=== PATIENT | male | born 1985 | race Caucasian/White ===

== ENCOUNTER 2022-03-16 15:38 | Emergency (ER) | payer BC, SELFPAY ==
[2022-03-16 15:45] VITALS: BP 113/76; PULSE 88; RESP 22; TEMP 37; O2SAT 95; BMI 25.1
--- NOTE | 2022-03-16 16:44 | CRLHL7_ITS ---
For Patients: As a result of the Century Cures Act, medical imaging exams and procedure reports are released immediately into your electronic medical record. You may view this report before your referring provider. If you have questions, please contact your health care provider. INDICATION: chest wall pain; family hx of pneumothorax TECHNIQUE: Chest 2 views. COMPARISON: 05/27/20 FINDINGS: Cardiovascular and mediastinum: Heart size and vasculature are normal in caliber and appearance. Mediastinum is within normal limits. Lungs and pleural spaces: Lungs are clear. No sign of infiltrate or mass. No sign of pleural effusion. No pneumothorax. Bones and soft tissues: No significant findings. IMPRESSION: Unremarkable chest. Dictated by: French Elliott MD @ 03/16/2022 17:21:41 (Electronically Signed)
--- NOTE | 2022-03-16 16:46 | ED.CHESTPAIN ---
HPI - Chest Pain General Chief Complaint: Chest Pain Stated Complaint: Lung Pain Right side Chest and Back Time Seen by Provider: 03/16/22 16:27 History of Present Illness HPI narrative: This 36-year-old male comes in reporting pain in his right anterior chest and right axillary region. This began a couple days ago. He states that it is worse significantly when performing certain maneuvers or movements, when taking a deep breath, and when pressing in these areas. He does not report any recent injury event or significant strenuous activity. He does state that his father had pneumothoraces in the past. He does not report any shortness of breath. He states that it is difficult to find a good position to sleep in at night because of the discomfort. Related Data Previous Rx's Medication Instructions Recorded ketorolac 10 mg tablet 10 mg PO Q8H 5 days #15 tabs 03/16/22 Allergies Allergy/AdvReac Type Severity Reaction Status Date / Time cefaclor [From [facility]] Allergy Verified 03/16/22 15:59 ragweed pollen Allergy Verified 03/16/22 15:59 Review of Systems Status of ROS Reports: 10 or more systems reviewed and unremarkable except as noted in History and below Narrative Constitutional: No fevers, no weight gain or loss. Eyes: No discharge. No vision changes. HENT: No congestion, no sore throat, no ear pain. Cardiovascular: No palpitations. Respiratory: No shortness of breath, no wheezes, no cough. Gastrointestinal: No abdominal pain, no vomiting, no diarrhea. Genitourinary: No dysuria, no hematuria. Musculoskeletal: Normal range of motion. Chest wall pain as described above. Skin: No rashes, no pruritis. Neurological: No dizziness, weakness, sensory change, speech change. Endo/Heme/Allergies: No bruising or bleeding. No polydipsia. Pysch: no suicidality, no anxiety, no insomnia. All other systems reviewed and are negative. Exam Narrative Exam Narrative: Constitutional: Well-developed, well-nourished, no acute distress. HEENT: Normocephalic, atraumatic. Neck: Normal range of motion. Nontender. Supple. Heart: Regular. No murmurs. Normal rate. Intact distal pulses. Lungs: Clear to auscultation. No wheezes, rhonchi, or rales. Chest pain in the right anterior chest and axillary region is distinctly reproducible when taking a deep breath or palpating in these areas. Abdomen: Normal bowel sounds. Nontender. No rebound tenderness. Genitalia: Deferred. Back: No midline tenderness. Normal range of motion. Extremities: Normal range of motion. No injury. Skin: Intact. No rash. Warm. No erythema or pallor. Neurologic: No altered sensation. No weakness. Alert and oriented. Psychiatric: No suicidality. No anxiety or depression. No insomnia. Nursing notes and vitals signs are reviewed. Const Vital Signs, click to edit/add: Vital Signs - 24 hr 03/16/22 15:45 Temperature 98.6 F Pulse Rate [Apical] 88 Respiratory Rate 22 Blood Pressure [Left Upper Arm] 113/76 Pulse Oximetry 95 Oxygen Delivery Method Room Air Course Vital Signs Vital signs: Initial Vital Signs Temperature 98.6 F 03/16/22 15:45 Temperature Source Temporal Artery Scan 03/16/22 15:45 Pulse Rate 88 03/16/22 15:45 Pulse Rhythm 03/16/22 15:45 Respiratory Rate 22 03/16/22 15:45 Blood Pressure 113/76 03/16/22 15:45 Blood Pressure Mean 88 03/16/22 15:45 Pulse Oximetry 95 03/16/22 15:45 Oxygen Delivery Method 03/16/22 15:45 Vital Signs Temperature 98.6 F 03/16/22 15:45 Pulse Rate 88 03/16/22 15:45 Respiratory Rate 22 03/16/22 15:45 Blood Pressure 113/76 03/16/22 15:45 Pulse Oximetry 95 03/16/22 15:45 Oxygen Delivery Method 03/16/22 15:45 Temperature 98.6 F 03/16/22 15:45 Pulse Rate 88 03/16/22 15:45 Respiratory Rate 22 03/16/22 15:45 Blood Pressure 113/76 03/16/22 15:45 Pulse Oximetry 95 03/16/22 15:45 Oxygen Delivery Method 03/16/22 15:45 MDM - Chest Pain MDM Narrative Medical decision making narrative: This patient comes in with reproducible pain in the right axilla and right upper anterior chest typical of chest wall pain. An x-ray was performed which by my review shows no sign of pneumothorax or other acute pulmonary disease. He received a rib belt and a prescription for Toradol. Imaging Data Chest x-ray: My impression: No sign of pneumothorax or acute pulmonary disease. Discharge Plan Discharge Clinical Impression: Acute chest wall pain Condition: Stable Instructions: Chest Wall Pain (ED) Additional Instructions: Take medication as needed and prescribed. Follow up with MD or return if worsening. Prescriptions: New ketorolac 10 mg tablet 10 mg PO Q8H 5 Days Qty: 15 0RF Follow Up/Referrals: Provider,Not a Local [Primary Care Provider] - Stand Alone Forms: [employer] Info Instructions
== END 2022-03-16 18:01 | disposition home or self-care (01) ==
PROVIDERS: Emergency Provider Emergency Medicine Emergency Medical Services
DX: R07.89 Other chest pain (principal)
CPT/HCPCS: 71046; 99283; 99284

== ENCOUNTER 2022-04-29 14:43 | Emergency (ER) | payer BC, SELFPAY ==
[2022-04-29 14:49] VITALS: BP 115/78; PULSE 98; RESP 18; TEMP 36.2; O2SAT 98; BMI 25.1
--- NOTE | 2022-04-29 16:28 | ED_ITS ---
HPI - General Adult General Chief complaint: Head Injury/Pain Stated complaint: Fainted, fell/scraped face Time Seen by Provider: 04/29/22 14:58 Source: patient Mode of arrival: ambulatory Limitations: no limitations History of Present Illness HPI narrative: 36-year-old male coming in today after he fell this morning. He states that he was crouching down expressing his dogs bladder when he stood up felt very lig htheaded and ended up passing out falling forward onto some cactus in his yard. He is not sure how long he was out therefore he woke up to the barking of his dog. He was a little confused momentarily upon waking. He has felt tired with a mild headache all day. He denies any recent illness, cough, chest pain or shortness of breath. No changes in his vision or hearing. He denies any nausea or vomiting. He came in this late afternoon at the urging of his mother. Patient has a history significant for anxiety, depression, narcolepsy. He denies any new medications. He denies any neurologic deficits. Related Data Previous Rx's Medication Instructions Recorded ketorolac 10 mg tablet 10 mg PO Q8H 5 days #15 tabs 03/16/22 Allergies Allergy/AdvReac Type Severity Reaction Status Date / Time cefaclor [From [facility]] Allergy Verified 03/16/22 15:59 ragweed pollen Allergy Verified 03/16/22 15:59 Review of Systems Status of ROS: Reports: 10 or more systems reviewed and unremarkable except as noted in History and below PFSH PFS Social History Smoking Status: Former smoker What tobacco products do you use: cigarettes Smoking quit date/years: >15 years ago Do you use any of these nicotine containing products: None Second hand tobacco smoke exposure: No How often do you have a drink containing alcohol: never How often do you have six or more drinks on one occasion: Never AUDIT-C Alcohol total score: 0 Non-prescribed substance use: denies use Exam Narrative: Exam Narrative: Well-nourished well-developed patient in no acute distress. Alert and oriented x3. GCS is 15. Breathing and speaking without any difficulty. Answers questions appropriately. Mood and affect are appropriate. Thoughts are goal or iented and rational. No tangential or magical thinking noted. Patient speaks in full sentences without needing to catch his breath. HEENT: Normocephalic. Pupils are equally round reactive to light. Extraocular muscles are intact. Conjunctivae are moist without any icterus noted. Moist mucous membranes. Posterior pharynx is normal. Neck is soft without any lymphadenopathy or thyromegaly. No masses are appreciated. Patient has superficial abrasions of the center of his forehead and down the center of the nose. There is no septal hematoma noted inside the nose. There is no crepitus or deformity noted on outside of the nose. There is no crepitus or tenderness around the orbits. There is no crepitus or tenderness across the forehead. He has no active bleeding, the abrasions have all already scabbed over. He has no tenderness to palpation of the cervical spine. He has full range of motion with flexion, extension, side way bending and rotation. Cardiovascular: Heart is regular rate and rhythm S1 and S2 are present without any murmurs. Lungs: Clear to auscultation bilaterally no wheezes rhonchi or rales are appreciated. Patient takes deep breaths without any discomfort. Const: Vital Signs, click to edit/add: Vital Signs - 24 hr 04/29/22 14:49 Temperature 97.1 F L Pulse Rate [Right Pulse Oximeter] 98 Respiratory Rate 18 Blood Pressure [Ri ght Upper Arm] 115/78 Pulse Oximetry 98 Oxygen Delivery Me thod Room Air Course Vital Signs Vital signs: Initial Vital Signs Temperature 97.1 F L 04/29/22 14:49 Temperature Source Temporal Artery Scan 04/29/22 14:49 Pulse Rate 98 04/29/22 14:49 Respiratory Rate 18 04/29/22 14:49 Blood Pressure 115/78 04/29/22 14:49 Blood Pressure Mean 90 04/29/22 14:49 Blood Pressure Position Sitting 04/29/22 14:49 Pulse Oximetry 98 04/29/22 14:49 Oxygen Delivery Method 04/29/22 14:49 Vital Signs Temperature 97.1 F L 04/29/22 14:49 Pulse Rate 98 04/29/22 14:49 Respiratory Rate 18 04/29/22 14:49 Blood Pressure 115/78 04/29/22 14:49 Pulse Oximetry 98 04/29/22 14:49 Oxygen Delivery Method 04/29/22 14:49 Temperature 97.1 F L 04/29/22 14:49 Pulse Rate 98 04/29/22 14:49 Respiratory Rate 18 04/29/22 14:49 Blood Pressure 115/78 04/29/22 14:49 Pulse Oximetry 98 04/29/22 14:49 Oxygen Delivery Method 04/29/22 14:49 Medical Decision Making MDM Narrative Medical decision making narrative: 36-year-old male with what sounds like a vasovagal episode with syncope today, closed head injury and abrasions to the face, mild concussion. Given that this occurred around 8 hours ago, I do not see the need for intracranial imaging. We discussed concussion care including no rigorous physical activity for 24 hours and brain rest. We discussed reasons to follow up with his primary care provider. Patient was agreeable with everything we discussed and had no other questions. Discharge Plan Discharge Clinical Impression: Vasovagal syncope, Mild concussion, Closed head injury, Abrasion of face Additional Instructions: You need brain rest-no vigorous physical activity for 24 hours. Then slow return to normal activity: this includes decreasing anything that causes stimulation including screen time. Okay to take Tylenol or ibuprofen as needed for aches and pains. Expect to have increased soreness tomorrow-okay to use heat to sore areas but do not apply heat directly to skin. If your headache is not better in the next 24-48 hours, follow-up with your prim [facility] care provider. Prescriptions: No Action ketorolac 10 mg tablet 10 mg PO Q8H 5 Days Qty: 15 0RF Follow Up/Referrals: Provider,Not a Local [Primary Care Provider] - Stand Alone Forms: [employer] Info Instructions
--- OUTSIDE RECORDS SUMMARY | 2022-04-29 16:37 | XMS_ITS | Encounter Summary ---
:1985 [facility] Address [address] [address] Care Team Providers Name Role Phone Marino Rubio PA-C Primary Care Provider Reason for Visit Reason Comments Video Visit CONSULT Consult/Transfer Care (Routine) - New Request Specialty Diagnoses / Procedures Referred By Contact Refer red To Contact Diagnoses Positive DINESH (antinuclear antibody) Ajit Menezes DO [address] [place], [place] [address] Referral ID Status Reason Start Date Expiration Date Visits V isits Requested Authorized [id number] New Request 04/09/2021 07/09/2022 1 1 Encounter Details Date Type Department Care Team Description 07/08/2021 Telemedicine [facility] [address]zon Pos itive DINESH (antinuclear antibody) (Primary Dx); Rheumatology Arthralgia, unspecified joint [address] [facility] [place] [address] [phone] (Wo rk) Social History Tobacco Use Types Packs/Day Years Used Date Smoking Tobacco: Never Smokeless Tobacco: Never Alcohol Use Standard Drinks/Week Comments Yes 0 (1 standard drink = 0.6 oz pure alcoho l) once a week (3-8) Alcohol Habits Answer Date Recorded How often do you have a drink containing alcohol? Not asked How many drinks containing alcohol do you have on a Not aske d typical day when you are drinking? How often do you have six or more drinks on one Not asked occasion? Comment: once a week (3-8) 01/17/2020 Sex Assigned at Date Recorded Not on file documented as of this encounter Patient Instructions Patient InstructionsFreeman Garzon MD - 07/08/2021 1:15 PM CST DINESH = Antinuclear antibody This is an antibody in the blood which tends to bind proteins within the nucleus of cells. It is often referred to as the ???Lupus Test?? because 99% of people with lupus do have a positive test. However, perhaps only 1/10 to 1/50 of people randomly screened and found to have a positive DINESH actually have lupus. In other words, all people with lupus have a positive DINESH but not all people with a positive DINESH have lupus. It is therefore a sensitive test, but not a specific one. In practice, it often has greater utility if it is negative, since a negative test almost always (99% of the time) rules out Lupus as the causeof the underlying symptoms. The DINESH may be positive in with lots of conditions besides Lupus. Other autoimmune diseases like rheumatoid arthritis, Sjogren???s Syndrome, scleroderma can cause a positive. Autoimmune disease which don???t fall into the Rheumatology category like thyroid disease and liver disease can cause a positive DINESH. Other reasons for a positive DINESH include some kinds of infections (even viral infections like colds) and certain medications (minocycline, procainamide, hydralazine, some antiseizure drugs). Up to 1 in 20 normal people can have a positive DINESH (usually low positive) which has no consequence at all. The stronger positive the DINESH, the more likely it is to mean something significant. DINESH is reported in a titer, with higher numbers being a stronger positive: Negative 1:40 (weak positive) 1:80 1:160 1:320 1:640 1:1280 1:2560 (strong positive) Often value above 1:320 are significant. Thankfully, there are some additional blood tests which can help determine if a positive DINESH is a ???true positive?? or ???false positive?? , so these may be ordered. The most important thing, however, is what symptoms the patient has. A positive DINESH is just one piece of information used to diagnose disease like lupus. Diagnosing diseases like lupus requires the presence of certain signs and symptoms. ETIC ADVISOR documented in this encounter Progress Notes Freeman Garzon MD - 07/08/2021 12:00 AM CST NAME: JACKIE MARROQUIN CSN: [id number] CLINIC NOTE DATE OF SERVICE: 07/08/2021 : 1985 I saw Mr. Marroquin on a video conference on July 08. He was at home as was I. I told him I appreciated his willingness to do this online with the pandemic. He is 35 years old. 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 Additional health issues: 1. Anxiety. 2. Depression. 3. Asthma. 4. Seasonal allergies. 5. HIV. 6. Migraines. 7. Arthralgias. 8. Positive antinuclear antibody. I am asked to see him with respect to a positive antinuclear antibody. He was having pain in both arms. He thought he probably had carpal tunnel. He was having some paresthesias in the hands but the entire hand was involved. It went up the arm to the neck. He was having pain in the arm and shoulders, but the numbness was in the fingers. Again, he emphasized it was both sides and it was all the fingers including the thumb. He tried some aspirin for it, though did not splint it. Was evaluated by [facility] who sent him for an EMG that was negative. He is scheduled for cervical MRI and an MRI of his head, but these have notbeen scheduled yet. He was having some pain in the elbows, right more than left, but again the entire arm was involved. When I asked him whether this was bone, muscle, nerve or joint he says the hand sensation felt like nerve pain and that certainly sounds appropriate with the paresthesias he was having. He said the arm and shoulder was more pain. It was not the individual joints all over. He does get Raynaud phenomenon, but did not have that with the numbness. Raynaud is just involving the hands. PAST MEDICAL HISTORY: See above. He had labs done. His CBC was normal. A1c was 5.3. VDRL was negative. Tuberculosis QuantiFERON was negative. His HIV was positive. Liver function tests negative. His CRP was less than 0.5. TSH was 1.61. His ABBI, however, was greater than 1:640 nucleolar pattern. As mentioned, he does have Raynaud. He says he has anxiety and when he goes to swallow something, has to think about actually swallowing them. He thinks this is more his anxiety. He has never had an endoscopy done. He does not get much in the way of reflux. He has had some nasal sores which are unusual for him. There is no photosensitivity. There is no shortness of breath. He has never had pleurisy, pericarditis, hair loss, skin rashes, etc. He has a brother and sister in good health. Mom is 57 and is in good health. Has some disk disease in her back. His dad is 58. He has had prostate cancer and hypertension. He thinks there is rheumatoid arthritis on the paternal side of his family but does not k now the details of that. REVIEW OF SYSTEMS: Detailed complete review of systems otherwise negative. I should note he had an VARSHA done also that was negative and his rheumatoid factor was negative. He was under the impression he was thought to have rheumatoid arthritis. MEDICATIONS: He has albuterol, Flovent, Advair, Flonase, and Atrovent nasal inhalers. He is on Wellbutrin 300 mg, lysine 500 mg, Naprosyn occasionally, Singulair 10 mg a day, probiotic, Inderal 60 mg aday, Imitrex if needed, Patanol eye drops, a vitamin a day, and Biktarvy. PHYSICAL EXAMINATION: Obviously, an exam could not be done. His hair pattern looks normal. There is no butterfly rash. I do not see any swollen joints in his hands, but a limited exam is all we could do on a virtual consult. We had a lengthy discussion about lupus. We talked about the positive ABBI. The nucleolar plan is commonly associated with a CREST variety of scleroderma. He does have some swallowing difficulty. We may want to pursue a barium swallow although he thinks this is more anxiety. When he is swallowing thenhe has to think the process through. He has never had an endoscopy. He does not get reflux. He has had no sclerodactyly. He has had no red spots on his face or hands with telangiectasias. I am going togo ahead and do a CCP rheumatoid factor on him as he was under the impression he was being sent for rheumatoid arthritis. His VARSHA was completely negative. We will do complements studies with DNA and anticardiolipin antibody and lupus anticoagulant for the Raynaud. His TSH was done and was negative. I will get back to him the results of those. I do not think we are dealing with an underlying connective tissue disease at least at this point in time. He does not have features to suggest CREST. He is having an MRI of his head done as well as his neck, but again his symptoms do not fit nicely with an isolated cervical radiculopathy. I appreciate the opportunity to see him in consultation. If his labs are abnormal, I will need to see him in the office. If normal, followup will be as needed. I will forward him information on the ABBI as well. Contact time 60 minutes reviewing chart, history and physical today. MD LUIS CARLOS LYLE/BRIAN /[id number] cc: MARINO RUBIO PA-C [address] [place] [address] AJIT MENEZES, DO [address] [place] [address] ETIC ADVISOR documented in this encounter Plan of Treatment Not on filedocumented as of this encounter Results IGG-Whll-PI-DNA by Julio Assay (07/27/2021 11:39 AM GEODETIC ADVISOR) P athologist Signature Anti-dsDNA Ab <8.0 <8.0 IU/mL 08/03/2021 [facility] (Julio Assay) 11:06 PM GEODETIC ADVISOR INTERFACED Specimen Anatomical Collection Method / Collection Time Recei meg Time (Source) Location / Volume Laterality Blood Venipuncture / 07/27/2021 11:39 2 Unknown AM GEODETIC ADVISOR 11:39 AM GEODETIC ADVISOR Narrative [facility] INTERFACED - 08/03/2021 11:06 PM GEODETIC ADVISOR Test(s) [id number] Ab by Julio(RDL) was developed and its performance charac teristics determined by [facility]. It has not been cleared or a pproved by the Food and Drug Administration. Performed at: ??01 - [employer] [address] [facility], A ??[id number] Cd Reactor Operator Head: Ej Diaz MD, Phone: ? ?[phone] Freeman Garzon MD LAB_1 Performing Organization Address City/[facility]/ZIP Code Phon e Number [facility] INTERFACED [address] [address] [place] [address] C4 - C4 Complement (07/27/2021 11:39 AM GEODETIC ADVISOR) [facility] Signature C4 Complement 27.5 15.0 - 07/27/2021 [facility] 53.0 mg/dL 3:19 PM GEODETIC ADVISOR CENTRAL LAB Specimen Anatomical Collection Method / Collection Time Recei meg Time (Source) Location / Volume Laterality Blood Venipuncture / 07/27/2021 11:39 2 Unknown AM GEODETIC ADVISOR 11:39 AM GEODETIC ADVISOR Freeman Garzon MD LAB_1 Performing Organization Address [facility] Phon e Number [facility] CEN[facility]AL LAB [address] [address] C3 - C3 Complement (07/27/2021 11:39 AM GEODETIC ADVISOR) [facility] Signature C3 Complement 115 82 - 185 07/27/2021 [facility] mg/dL 3:19 PM GEODETIC ADVISOR CENTRAL LAB Specimen Anatomical Collection Method / Collection Time Recei meg Time (Source) Location / Volume Laterality Blood Venipuncture / 07/27/2021 11:39 2 Unknown AM GEODETIC ADVISOR 11:39 AM GEODETIC ADVISOR Freeman Garzon MD LAB_1 Performing Organization Address [facility] Phon e Number [facility] [address] [address] CCPIG - Cyclic Citrullinated Peptide AB (07/27/2021 11:39 AM GEODETIC ADVISOR) [facility] Signature Anti-CCP Antibody 2 <7 U/mL 07/28/2021 [facility] 11:35 AM CENTRAL LAB GEODETIC ADVISOR Anti-CCP Antibody Negative Negative 07/28/2021 [facility] Interpretation 11:35 AM CENTRAL LAB GEODETIC ADVISOR Specimen Anatomical Collection Method / Collection Time Recei meg Time (Source) Location / Volume Laterality Blood Venipuncture / 07/27/2021 11:39 2 Unknown AM GEODETIC ADVISOR 11:39 AM GEODETIC ADVISOR Freeman Garzon MD LAB_1 Performing Organization Address [facility] Phon e Number [facility] [address] [address] Cardiolipin Antibodies, IgG and IgM (07/27/2021 11:39 AM GEODETIC ADVISOR) Patholo gist Method Time Signature Anticardiolipin 1.1 <=9.9 07/28/2021 [facility] S IgG Antibody GPL-u/ml 11:09 AM CENTRAL LAB GEODETIC ADVISOR Cardiolipin IgG Negative Negative 07/28/2021 [facility] Interp 11:09 AM CENTRAL LAB GEODETIC ADVISOR Anticardiolipin <0.8 <=9.9 07/28/2021 [facility] IgM Antibody MPL-U/ml 11:09 AM CENTRAL LAB GEODETIC ADVISOR Cardiolipin IgM Negative Negative 07/28/2021 [facility] Interp 11:09 AM CENTRAL LAB GEODETIC ADVISOR Specimen Anatomical Collection Method / Collection Time Recei meg Time (Source) Location / Volume Laterality Blood Venipuncture / 07/27/2021 11:39 2 Unknown AM GEODETIC ADVISOR 11:39 AM GEODETIC ADVISOR Narrative [facility] - 07/28/2021 11:09 AM GEODETIC ADVISOR If there is a strong clinical suspicion for antiphospholipid antibody syndrome (APS), consider testing for Lupus anticoagulant and Beta-2 glycoprotein 1 antibodies (IgG and IgM) if these tests have not been pe rformed. Freeman Garzon MD LAB_1 Performing Organization Address City/[facility] Phon e Number [facility] [address] [address] LACP - Lupus Anticoagulant (07/27/2021 11:39 AM GEODETIC ADVISOR) Component Value Ref Range Test Analysis Performed Pathologis t Method Time At Signature Protime 12.8 11.8 - 14.6 07/28/2021 [facility] 10:06 AM HOSPITAL GEODETIC ADVISOR INR 1.0 0.9 - 1.1 07/28/2021 [facility] 10:06 AM HOSPITAL GEODETIC ADVISOR APTT 29.9 22.5 - 36.5 07/28/2021 [facility] 10:06 AM HOSPITAL GEODETIC ADVISOR Thrombin 16.5 13.8 - 18.7 07/28/2021 [facility] Time Seconds 10:06 AM HOSPITAL GEODETIC ADVISOR DRVV Screen 1.14 0.78 - 1.22 07/28/2021 [facility] Ratio 10:06 AM HOSPITAL GEODETIC ADVISOR PTTLA ratio 0.95 0.83 - 1.17 07/28/2021 [facility] 10:06 AM HOSPITAL GEODETIC ADVISOR Lupus No evidence of No evidence of 07/28/2021 [facility] Anticoag Lupus Lupus-like 10:06 AM HOSPITAL Intrp Anticoagulant anticoagulant GEODETIC ADVISOR Specimen Anatomical Collection Method / Collection Time Recei meg Time (Source) Location / Volume Laterality Blood Venipuncture / 07/27/2021 11:39 2 Unknown AM GEODETIC ADVISOR 11:39 AM GEODETIC ADVISOR Narrative [facility] - 07/28/2021 10:[address] Comment: LA was not detected by PTTLA or DRVVS te sting. Suggest repeat testing as clinically indicated. Freeman Garzon MD LAB_1 Performing Organization Address City/State/ZIP Code Phon e Number [address] [address] documented in this encounter Visit Diagnoses Diagnosis Positive DINESH (antinuclear antibody) - Pr imary Other and unspecified nonspecific immuno logical findings Arthralgia, unspecified joint documented in this encounter Care Teams Maintenance Assistant Relationship Specialty Start Date End Date Marino Rubio PA-C PCP - General Physician Stucco Worker 07/18/19 [address] [place] [address] documented as of this encounter
--- OUTSIDE RECORDS SUMMARY | 2022-04-29 16:37 | XMS_ITS | Encounter Summary ---
:1985 Author Organization [employer] Address [address] [address] Care Team Providers Name Role Phone Marino Rubio PA-C Primary Care Provider Reason for Visit Reason Comments Nurse Visit Injection Encounter Details Date Type Department Care Team Description 03/25/2022 Nursing Visit [facility] [address] Nurse, [id number] Ifd HIV disease (HRC) Infectious Disease (Primary Dx) [address] [place], [place] [address] Social History Tobacco Use Types Packs/Day Years [...] on file documented as of this encounter Nursing Notes Steve Castaneda RN - 03/25/2022 11:30 AM CDT Patient here for Cabenuva injection. Patient does not have any concerns regarding medication since last injection. Reviewed more serious side effects such as abdominal pain, dark urine, light colored stool, itching, and mood changes. Patient waited in clinic for 20 minutes post injection. Patient denied any adverse reaction upon leaving clinic. documented in this encounter Plan of Treatment Not on filedocumented as of this encounter Visit Diagnoses Diagnosis HIV disease (HRC) - Primary Human immunodeficiency virus [HIV] disea se documented in this encounter Administered Medications Inactive Administered Medications - up to 3 most recent administrations Medication Order MAR Action Action Date Dose Rate Site cabotegravir-rilpivirine ER Given 03/25/2022 12:01 PM CDT 1 Dose Other (CABENUVA) 600 mg-900 mg per 6 mL injection (2 x 3 mL vial) 1 Dose (6 mL), Intramuscular, ONCE, On Mon03/25/22 at 1215, For 1 dose, See PI for full admin instructions. Shake each vial vigorously to achieve uniform suspension. Administer cabotegravir and rilpivirine at separate gluteal injection sites (on opposites sites or 2 cm apart) during the same visit. The ventrogluteal site is recommended. The administration order of cabotegravir and rilpivirine injections is not important. Observe patients for 10 minutes after injection. If a patient experiences a post-injection reaction, monitor and treat as clinically indicated., Indications: Human Immunodeficiency Virus Disease documented in this encounter Care Teams Lead Relay Tester Relationship Specialty Start Date End Date Marino Rubio PA-C PCP - General Physician Dean Of Students 07/18/19 [address] [place] [address] documented as of this encounter
--- OUTSIDE RECORDS SUMMARY | 2022-04-29 16:37 | XMS_ITS | Encounter Summary ---
:1985 Author Organization [facility] Address [address] [address] Care Team Providers Name Role Phone Marino Rubio PA-C Primary Care Provider Reason for Visit Reason Onset Date Comments Refill 05/27/2021 Encounter Details Date Type Department Care Team Description 05/27/2021 Refill [facility] [address] Infectious Angelito Car Pat pizarro, Refill Disease [address] [place] [address] [place] [address] [phone] (Wo rk) Social History Tobacco Use Types [...] on file documented as of this encounter Plan of Treatment Not on filedocumented as of this encounter Visit Diagnoses Not on filedocumented in this encounter Care Teams Egg Worker Relationship Specialty Start Date End Date Marino Rubio PA-C PCP - General Physician Carpet Measurer 07/18/19 [address] [place] [address] documented as of this encounter
--- OUTSIDE RECORDS SUMMARY | 2022-04-29 16:37 | XMS_ITS | Encounter Summary ---
:1985 Author Organization [employer] Address [address] [address] Care Team Providers Name Role Phone Marino Rubio PA-C Primary Care Provider Reason for Visit Reason Comments INFECTION Encounter Details Date Type Department Care Team Description 10/15/2021 Nursing Visit [facility] [address] Nurse, P3800 Ifd HIV disease (HRC) Infectious Disease (Primary Dx) [address] [facility] [place], [place] [address] Social History Tobacco Use Types Packs/Day Years [...] documented as of this encounter Nursing Notes Yue Cruz RN - 10/15/2021 11:15 AM CDT Patient received first injection of cabenuva. Patient assessed for side effects to oral lead in. Patient did feel at times he was more depressed. Spoke with TWAN White who ok'd the medication be given. Patient was scheduled for a one month follow up to assess depression. Patient stayed in clinic 10 minutes post injection and tolerated medication. documented in this encounter Plan of Treatment Not on filedocumented as of this encounter Visit Diagnoses Diagnosis HIV disease (HRC) - Primary Human immunodeficiency virus [HIV] disea se documented in this encounter Administered Medications Inactive Administered Medications - up to 3 most recent administrations Medication Order MAR Action Action Date Dose Rate Site cabotegravir-rilpivirine Given 10/15/2021 11:58 1 Dose Left Ventralgluteal ER (CABENUVA) 600 mg-900 AM CDT mg per 6 mL injection (2 x 3 mL vial) 1 Dose (6 mL), Intramuscular, ONCE, On Mon10/15/21 at 1215, For 1 dose, See PI [...] Disease documented in this encounter Care Teams Order Entry Representative Relationship Specialty Start Date End Date Marino Rubio PA-C PCP - General Physician Layout Man 07/18/19 [address] [place] [address] documented as of this encounter
--- OUTSIDE RECORDS SUMMARY | 2022-04-29 16:37 | XMS_ITS | Encounter Summary ---
:1985 Author Organization [facility] Address [address], [place] [address] Care Team Providers Name Role Phone Marino Rubio PA-C Primary Care Provider Reason for Visit Reason Comments Follow-up Encounter Details Date Type Department Care Team Description 08/12/2021 Office Visit [facility] [address], HIV disease (HRC) (Primary Dx); Infectious Disease ASSOCIATE PROFESSOR, NATURALIZATION EXAMINER Encounter for health education [address] [place] [phone] (Wo rk) Social History Tobacco Use Types [...] on file documented as of this encounter Last Filed Vital Signs Vital Sign Reading Time Taken Comments Blood Pressure 118/75 08/12/2021 12:12 PM APPLICATION ASSISTANT Pulse 68 08/12/2021 12:12 PM APPLICATION ASSISTANT Temperature 36.8 ??C (98.3 ??F) 08/12/2021 12:12 PM APPLICATION ASSISTANT Respiratory Rate - - Oxygen Saturation - - Inhaled Oxygen Concentration - - Weight 71.7 kg (158 lb) 08/12/2021 12:12 PM APPLICATION ASSISTANT Height - - Body Mass Index 24.38 04/02/2021 11:27 AM CDT documented in this encounter Progress Notes Jessica White, ASSOCIATE PROFESSOR, NATURALIZATION EXAMINER - 08/12/2021 12:00 PM CST SUBJECTIVE: Fernie Marroquin is a 35 y.o. male who presents to clinic for HIV medication education. HPI: Fernie is here in follow up to his January 2021 visit. He typically follows with Dr Eaton for HIV disease management. On Biktarvy for ART with excellent adherence. Viral load is <30, CD4 count is 319/27.8%. Diagnosed in 2018, has only been on Biktarvy for ART. Genotype indicates no resistance. Fernie has seen commercials for the new injectable HIV drug Cabenuva (cabotegravir/rilpivirine) and wants to explore this option. He does have good adherence with his daily oral medication, however it ismentally challenging to be reminded of his HIV diagnosis every day when he takes his pill. Additionally he is concerned about his privacy with having pill bottles around. We discussed the specifics of Cabenuva, including the oral lead-in to assess to any intolerances, the monthly bilateral gluteal injections and potential side effects and the monitoring needed for switching medications. The injections need to be given here in clinic monthly, so discussed the importance of commitment to that regimen. Fernie is interested in pursuing this option. He will complete the enrollment [facility]. Meanwhile, no changes to his current regimen. He has a routine f/u with Dr Eaton in 2 weeks, so we should have more info by that time to be able to decide whether to make the switch. No further questions today. Review of systems: ROS: A complete 10 system review of systems was obtained. Pertinent positives and negatives are mentioned in the HPI. The remainder of systems was negative. Patient Active Problem List Diagnosis ??? HIV (human immunodeficiency virus infection) (HRC) ??? Concussion with loss of consciousness ??? Migraine without status migrainosus, not intractable ??? Constipation, chronic ??? CODY (generalized anxiety disorder) (HRC) ??? Mild intermittent asthma without complication (HRC) ??? Seasonal allergic rhinitis ??? Anxiety (HRC) ??? History of depression Medications: Reviewed and updated in [facility]. See med list for current medications. Adverse Drug Reactions: Allergies Allergen Reactions ??? Cefaclor Unknown, Itching and Rash Past Medical History: Diagnosis Date ??? HIV (human immunodeficiency virus infection) ([facility]) 10/10/2018 Social History: Social History Socioeconomic History ??? Marital status: Unknown Spouse name: Not on file ??? Number of children: Not on file ??? Years of education: Not on file ??? Highest education level: Not on file Occupational History ??? Not on file Tobacco Use ??? Smoking status: Never Smoker ??? Smokeless tobacco: Never Used Vaping Use ??? Vaping Use: Never used Substance and Sexual Activity ??? Alcohol use: Yes Comment: once a week (3-8) ??? Drug use: Never ??? Sexual activity: Yes Other Topics Concern ??? Bike Helmet Not Asked ??? [place] Not Asked ??? Exercise Not Asked ??? Guns in home Not Asked ??? Seat Belt Not Asked ??? Special Diet Not Asked ??? Weight Concern Not Asked Social History Narrative ??? Not on file Social Determinants of Health Financial Resource Strain: Not on file Food Insecurity: Not on file Transportation Needs: Not on file Physical Activity: Not on file Intimate Partner Violence: Not on file Housing Stability: Not on file Family History: Family History Problem Relation Age of Onset ??? Cancer, Prostate Father ??? Hypertension Father OBJECTIVE: Vital Signs: BP 118/75 (BP Location: Right Arm, BP Cuff Size: Large) Pulse 68 Temp 36.8 ??C (98.3 ??F) (Oral) Wt 71.7 kg (158 lb) BMI 24.38 kg/m?? Gen: 35 y.o. male in NAD. Alert and oriented, normal affect. HEENT: Sclera white. Conjunctiva is clear without lesions. PERRLA. EOMs bilaterally intact. Oropharynx normal without signs of infection. Teeth satisfactory. No signs of oral thrush. Neck: Supple, without mass or thyromegaly. Lymphatic: No cervical or supraclavicular lymphadenopathy. Skin: No rashes or other lesions. Extremities: No edema. Neuro: Grossly intact Labs: Lab Results Component Value Date CD3/CD4 ([place] Cells) % 27.8 (L) 12/17/2020 HIV Copies per/ml 1,199 (H) 10/04/2018 ASSESSMENT and PLAN: ICD-10-CM 1. HIV disease (HRC) B20 2. Encounter for health education Z71.9 To be eligible for Cabenuva (medically) the patient need to be virally suppressed with no resistanceto rilpivirine. Enrollment form completed. Awaiting response. Routine f/u in 2 weeks. Nursing will communicate with patient re: insurance updates. The patient was discharged ambulatory and in stable condition. Followup: Return to by video in 2 weeks for f/u, sooner if problems arise. Total time 25 minutes in patient care and coordination of care. Counseled the patient on treatment options, outcomes, side effects, alternative medicine and the importance of compliance. Jessica White APRN, MIRELLA 3:33 PM 08/12/2021 ICATION ASSISTANT documented in this encounter Plan of Treatment Not on filedocumented as of this encounter Visit Diagnoses Diagnosis HIV disease (HRC) - Primary Human immunodeficiency virus [HIV] disea se Encounter for health education documented in this encounter Additional Health Concerns Infection Onset Date Last Indicated Resolved Time COVID19 07/27/2021 07/27/2021 08/16/2021 3:17 AM APPLICATION ASSISTANT documented as of this encounter Care Teams Atm Servicer Relationship Specialty Start Date End Date Marino Rubio PA-C PCP - General Physician Wash Barrel Leader 07/18/19 [id number] [place] [address] documented as of this encounter
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
--- OUTSIDE RECORDS SUMMARY | 2022-04-29 16:37 | XMS_ITS | Encounter Summary ---
:1985 Author Organization [employer] Address [address], [place] [address] Care Team Providers Name Role Phone Marino Rubio PA-C Primary Care Provider Reason for Visit Reason Comments Appt. Needed Encounter Details Date Type Department Care Team Description 11/12/2021 Telephone [facility] [address] M, APR N, Appt. Needed Infectious Disease [employer] [address] [place] [address] [place] [address] [phone] (Wo rk) Social History Tobacco Use Types [...] documented as of this encounter Nursing Notes Minerva Hassan RN - 11/12/2021 1:34 PM CDT Called patient in which he had work issues so could not come in . Patient states he has no depression s/s currently and would like to sched nurse visit next week for cabanuva in which it is scheduled Jessica White APRN, MIRELLA - 11/12/2021 1:14 PM CDT Please call Fernie. He missed his appt for Cabenuva today. His initial injection was on October 15 (4 weeks ago). He has a 7 day leonardo period to get the next injection, so he should come in before the end of next week if he plans to get it. He was supposed to meet with me ahead of time to discuss any changes with his depression since he made the medication change. I could meet with him Monday, or Monday if he would still like to do that. Otherwise he can make the appt for a nurse visit only for the injection and safety labs. documented in this encounter Plan of Treatment Not on filedocumented as of this encounter Visit Diagnoses Not on filedocumented in this encounter Care Teams Coding Coordinator Relationship Specialty Start Date End Date Marino Rubio PA-C PCP - General Physician Edge Beader 07/18/19 [address] [place] [address] documented as of this encounter
--- OUTSIDE RECORDS SUMMARY | 2022-04-29 16:37 | XMS_ITS | Encounter Summary ---
:1985 Author Organization [facility] Address [address], [place] [address] Care Team Providers Name Role Phone Marino Rubio PA-C Primary Care Provider Encounter Details Date Type Department Care Team Description 12/06/[address] [facility] Major depressive disorder, r ecurrent episode, moderate ([facility]); [address] [facility] Acute alcoholism ([facility]); [place], [place] [address] HIV disease ([facility]) [phone] Social History Tobacco Use Types Packs/Day Years [...] Not on filedocumented as of this encounter Procedures Procedure Name Priority Date/Time Associated Comments Diagnosis HIV-1 RNA QUANT Routine 12/06/2021 1:47 PM HIV disease ([facility]) R esults for this CDT procedure are i n the results section. CBC AND DIFFERENTIAL Routine 12/06/2021 1:47 PM Major depressi ve Results for this PANEL CDT disorder, recurrent procedur e are in episode, moderate the result s ([facility]) section. T3, TOTAL Routine 12/06/2021 1:47 PM Major depressive Resul ts for this CDT disorder, recurrent procedur e are in episode, moderate the result s ([facility]) section. TESTOSTERONE,TOTAL,FR Routine 12/06/2021 1:47 PM Major depress rolando Results for this EE & BIOAVAILABLE, CDT disorder, recurrent pr ocedure are in MALES episode, moderate the result s ([facility]C) section. VITAMIN D 25-HYDROXY, Routine 12/06/2021 1:47 PM Major depress rolando Results for this TOTAL CDT disorder, recurrent procedur e are in episode, moderate the result s (HRC) section. COMPLETE BLOOD Routine 12/06/2021 1:47 PM Major depressive Res ults for this COUNT-W/DIFF CDT disorder, recurrent procedur e are in episode, moderate the result s (HRC) section. COMP METABOLIC PANEL Routine 12/06/2021 1:47 PM Major depressi ve Results for this CDT disorder, recurrent procedur e are in episode, moderate the result s ([facility]) section. TSH, SENSITIVE Routine 12/06/2021 1:47 PM Major depressive Res ults for this CDT disorder, recurrent procedur e are in episode, moderate the result s (HRC) section. FREE T4 Routine 12/06/2021 1:47 PM Major depressive Resul ts for this CDT disorder, recurrent procedur e are in episode, moderate the result s (HRC) section. GT (GAMMA GT) Routine 12/06/2021 1:47 PM Major depressive Resu lts for this CDT disorder, recurrent procedur e are in episode, moderate the result s (HRC) section. Acute alcoholism ([facility]) LH Routine 12/06/2021 1:47 PM Major depressive Resul ts for this CDT disorder, recurrent procedur e are in episode, moderate the result s (HR[facility]) section. FSH Routine 12/06/2021 1:47 PM Major depressive Resul ts for this CDT disorder, recurrent procedur e are in episode, moderate the result s (HRC) section. documented in this encounter Results Complete Blood Count-W/Diff (12/06/2021 1:47 PM CDT) P athologist Signature WBC 4.7 3.5 - 10.5 12/06/2021 [facility] x10(9)/L 1:56 PM CDT LAB RBC 4.87 4.32 - 12/06/2021 [facility] 5.72 1:56 PM CDT LAB x10(12)/L Hemoglobin 15.6 13.5 - 12/06/2021 [facility] 17.5 g/dL 1:56 PM CDT LAB HCT 45.9 38.8 - 12/06/2021 [facility] 50.0 % 1:56 PM CDT LAB MCV 94.3 80.0 - 12/06/2021 [facility] 100.0 fL 1:56 PM CDT LAB MCH 32.0 27.6 - 12/06/2021 [facility] 33.3 pg 1:56 PM CDT LAB MCHC 34.0 31.5 - 12/06/2021 [facility] 35.2 g/dL 1:56 PM CDT LAB RDW 12.2 11.9 - 12/06/2021 [facility] 15.5 % 1:56 PM CDT LAB Platelets 221 150 - 450 12/06/2021 [facility] x10(9)/L 1:56 PM CDT LAB Neutrophil 3.2 1.7 - 7.0 12/06/2021 [facility] Absolute 10(9)/L 1:56 PM CDT LAB Lymphocyte 1.1 1.0 - 4.8 12/06/2021 [facility] Absolute 10(9)/L 1:56 PM CDT LAB Monocytes 0.4 0.2 - 0.9 12/06/2021 [facility] Absolute 10(9)/L 1:56 PM CDT LAB Eosinophil 0.1 0.0 - 0.5 12/06/2021 [facility] Absolute 10(9)/L 1:56 PM CDT LAB Basophil 0.0 0.0 - 0.3 12/06/2021 [facility] Absolute 10(9)/L 1:56 PM CDT LAB Immature Gran % 0.0 0.0 - 0.5 12/06/2021 [facility] % 1:56 PM CDT LAB Specimen Anatomical Collection Method / Collection Time Recei meg Time (Source) Location / Volume Laterality Blood Venipuncture / 12/06/2021 1:47 12/06/2021 1:47 Unknown PM CDT PM CDT Yenny Sosa APRN, [employer]OW[employer] GRINDER LAB_1 Performing Organization Address City/State/ZIP Code Phon e Number [facility] [address] [place] [address] (ABNORMAL) HIV-1 RNA Quant by TMA (12/06/2021 1:47 PM CDT) [facility] Method Time Signature HIV Interp Detected Not 12/08/2021 [facility] (A) Detected 11:29 AM CENTRAL LAB CDT HIV Copies <30 <30 12/08/2021 [facility] per/ml copies/mL 11:29 AM CENTRAL LAB CDT HIV Log <1.47 <1.47 log 12/08/2021 [facility] Copies/ml copies/mL 11:29 AM CENTRAL LAB CDT Specimen Anatomical Collection Method / Collection Time Recei meg Time (Source) Location / Volume Laterality Blood Venipuncture / 12/06/2021 1:47 12/06/2021 1:47 Unknown PM CDT PM CDT Narrative [facility] - 12/08/2021 11:29 AM CDT Test performed by Practical Nursing Teacher Mediated Amplification (TMA). Jessica White APRN, [employer] POWDER GRINDER LAB_1 Performing Organization Address [facility] Code Phon e Number [facility] CENTRAL [facility] [address] [address] (12/06/2021 1:47 PM CDT) P athologist Signature LH 4 1 - 12 12/06/2021 [facility] mIU/mL 8:01 PM CDT CENTRAL LAB Specimen Anatomical Collection Method / Collection Time Recei meg Time (Source) Location / Volume Laterality Blood Venipuncture / 12/06/2021 1:47 12/06/2021 1:47 Unknown PM CDT PM CDT Narrative [facility] - 12/06/2021 8:01 PM CDT Expected values for menstruating females Follicular Phase: 2-12 mIU/mL Mid-Cycle Peak: 8-89 mIU/mL Luteal Phase: 1-14 mIU/mL Expected values for postmenopausal femal es On HRT: 5-62 mIU/mL Yenny Sosa APRN, MILK POWDER GRINDER LAB_1 Performing Organization Address [facility] Code Phon e Number [facility] [address] [address] FSH (12/06/2021 1:47 PM CDT) P athologist Signature FSH 5.1 1.0 - 12.0 12/06/2021 [facility] mIU/mL 8:01 PM CDT CENTRAL LAB Specimen Anatomical Collection Method / Collection Time Recei meg Time (Source) Location / Volume Laterality Blood Venipuncture / 12/06/2021 1:47 12/06/2021 1:47 Unknown PM CDT PM CDT Narrative [facility] CENTRAL LAB - 12/06/2021 8:01 PM CDT Expected values for mensturating females Follicular Phase: 3.0-8.1 mIU/mL Mid-Cycle Peak: 2.6-16.7 mIU/mL Luteal Phase: 1.4-5.5 mIU/mL Post Menopausal Females without HRT: 26. 8-133.4 mIU/mL Yenny Sosa APRN, MIL[employer] POWDER GRINDER LAB_1 Performing Organization Address City/State/[facility] Code Phon e Number [facility] CENTRAL LAB [address] [address] Testosterone,Free,Bioavailable,Total,Adult Males or Individuals on Testosterone Hormone Therapy (12/06/2021 1:47 PM CDT) Patholo gist Method Time Signature Sex Hormone 24 13 - 74 12/07/2021 [facility] Binding Globulin nmol/L 9:34 AM CDT CENTRAL LAB Adult Testosterone 482 200 - 745 12/07/2021 [facility] ng/dL 9:34 AM CDT CENTRAL LAB Testosterone, 11.9 3.1 - 12/07/2021 [facility] Free 12.8 9:34 AM CDT CENTRAL LAB ng/dL Testosterone, 278.8 71.7 - 12/07/2021 [facility] Bioavailable 300.0 9:34 AM CDT CENTRAL LAB ng/dL Specimen Anatomical Collection Method / Collection Time Recei meg Time (Source) Location / Volume Laterality Blood Venipuncture / 12/06/2021 1:47 12/06/2021 1:47 Unknown PM CDT PM CDT Yenny Sosa APRN, CNP LAB_1 Performing Organization Address [facility] Phon e Number [facility] [address] [address] GT (Gamma GT) (12/06/2021 1:47 PM CDT) [facility] gist Method Time Signature GT (Gamma Gt) 47 12 - 64 12/06/2021 [facility] U/L 7:33 PM CDT CENTRAL LAB Specimen Anatomical Collection Method / Collection Time Recei meg Time (Source) Location / Volume Laterality Blood Venipuncture / 12/06/2021 1:47 12/06/2021 1:47 Unknown PM CDT PM CDT Yenny Sosa APRN, CNP LAB_1 Performing Organization Address [facility] Phon e Number [facility] [address] [place] [address] T3, Total (12/06/2021 1:47 PM CDT) athologist Signature Triiodothyroni 113 80 - 200 12/07/2021 [facility] ne, Total ng/dL 11:32 PM CDT LABORATORIES (Total T3) Comment: REFERENCE INTERVAL: Triiodothyronine, To dariana (Total T3) Access complete set of age- and/or gende r-specific reference intervals for this test in the [facility] Labo ratory Test Directory ([employer]). Performed By: [facility] [address] [place] [address] Resident Care Assistant: Rachel Morrison MD Specimen Anatomical Collection Method / Collection Time Recei meg Time (Source) Location / Volume Laterality Blood Venipuncture / 12/06/2021 1:47 12/06/2021 1:47 Unknown PM CDT PM CDT Yenny Sosa APRN, CNP LAB_1 Performing Organization Address [facility] Phon e Number [facility] [address] [place], [place] [phone] Free T4 (12/06/2021 1:47 PM CDT) athologist Signature T4, Free 1.00 0.70 - 12/06/2021 [facility] 1.50 ng/dL 7:42 PM CDT CENTRAL LAB Specimen Anatomical Collection Method / Collection Time Recei meg Time (Source) Location / Volume Laterality Blood Venipuncture / 12/06/2021 1:47 12/06/2021 1:47 Unknown PM CDT PM CDT Yenny Sosa APRN, MIRELLA LAB_1 Performing Organization Address [facility] CENTRAL LAB [address] [place] [address] TSH (12/06/2021 1:47 PM CDT) [facility] Method Time Signature TSH, Sensitive 0.98 0.30 - 12/06/2021 [facility] 4.50 8:01 PM CDT CENTRAL LAB uIU/mL Specimen Anatomical Collection Method / Collection Time Recei meg Time (Source) Location / Volume Laterality Blood Venipuncture / 12/06/2021 1:47 12/06/2021 1:47 Unknown PM CDT PM CDT Yenny Sosa APRN, MILK POWDER GRINDER LAB_1 Performing Organization Address [facility] [address] [place] [address] (ABNORMAL) Vitamin D 25-Hydroxy, Total (12/06/2021 1:47 PM CDT) [facility] Method Time Signature Vitamin D, 21 (L) 30 - 80 12/06/2021 [facility] 25-OH, Total ng/mL 7:44 PM CDT CENTRAL LAB Specimen Anatomical Collection Method / Collection Time Recei meg Time (Source) Location / Volume Laterality Blood Venipuncture / 12/06/2021 1:47 12/06/2021 1:47 Unknown PM CDT PM CDT Narrative [facility] - 12/06/2021 7:44 PM CDT Expected values Deficiency: <20 ng/mL Insufficiency: 20-29 ng/mL Optimum: 30-80 ng/mL Possible toxicity: >80 ng/mL Yenny Sosa APRN, MILK POWDER GRINDER LAB_1 Performing Organization Address City/State/ZIP Code Phon e Number [facility] CENTRAL LAB [address] [place] [phone] Comp Metabolic Panel (12/06/2021 1:47 PM CDT) [facility] Method Time Signature Sodium 140 136 - 145 12/06/2021 [facility] mmol/L 7:33 PM CDT CENTRAL LAB Potassium 4.7 3.5 - 5.1 12/06/2021 [facility] mmol/L 7:33 PM CDT CENTRAL LAB Chloride 103 98 - 109 12/06/2021 [facility] mmol/L 7:33 PM CDT CENTRAL LAB CO2 27 20 - 29 12/06/2021 [facility] mmol/L 7:33 PM CDT CENTRAL LAB Anion Gap 10 7 - 16 12/06/2021 [facility] mmol/L 7:33 PM CDT CENTRAL LAB Calcium 10.1 8.4 - 12/06/2021 [facility] 10.4 7:33 PM CDT CENTRAL LAB mg/dL BUN 9 7 - 26 12/06/2021 [facility] mg/dL 7:33 PM CDT CENTRAL LAB Creatinine 0.79 0.73 - 12/06/2021 [facility] 1.18 7:33 PM CDT CENTRAL LAB mg/dL GFR, Estimated >60 >60 12/06/2021 [facility] mL/min/1. 7:33 PM CDT CENTRAL LAB 73m2 Alkaline 73 40 - 150 12/06/2021 [facility] Phosphatase U/L 7:33 PM CDT CENTRAL LAB AST (SGOT) 27 10 - 40 12/06/2021 [facility] U/L 7:33 PM CDT CENTRAL LAB ALT (SGPT) 44 0 - 55 12/06/2021 [facility] U/L 7:33 PM CDT CENTRAL LAB Bilirubin, 0.5 0.2 - 1.2 12/06/2021 [facility] Total mg/dL 7:33 PM CDT CENTRAL LAB Protein, Total 7.9 6.4 - 8.3 12/06/2021 [facility] g/dL 7:33 PM CDT CENTRAL LAB Albumin 4.5 3.5 - 5.0 12/06/2021 [facility] g/dL 7:33 PM CDT CENTRAL LAB Glucose 96 70 - 100 12/06/2021 [facility] mg/dL 7:33 PM CDT CENTRAL LAB Comment: The given reference range is fo r the fasting state. Non-fasting reference range for glucose is 70 - 180 mg/dL. Hours Fasting 12 12/06/2021 7:33 PM CDT [facility] Specimen Anatomical Collection Method / Collection Time Recei meg Time (Source) Location / Volume Laterality Blood Venipuncture / 12/06/2021 1:47 12/06/2021 1:47 Unknown PM CDT PM CDT Yenny Sosa PUBLIC HEALTH STAFF NURSE, [employer]OW[employer] LAB_1 Performing Organization Address City/State/ZIP Code Phon e Number [facility] [address] [address] [facility] [address] [place], [place] [phone] documented in this encounter Visit Diagnoses Diagnosis Major depressive disorder, recurrent epi sode, moderate (HRC) Major depressive disorder, recurrent epi sode, moderate Acute alcoholism (HRC) Acute alcoholic intoxication in alcoholi sm, unspecified HIV disease ([facility]) Human immunodeficiency virus [HIV] disea se documented in this encounter Additional Health Concerns Infection Onset Date Last Indicated Resolved Time R/O COVID19 12/06/2021 12/06/2021 12/07/2021 12:58 AM CDT documented as of this encounter Care Teams Tube Drawing Supervisor Relationship Specialty Start Date End Date Marino Rubio PA-C PCP - General Physician Public Relations Officer 07/18/19 [address] [place] [address] documented as of this encounter
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
--- OUTSIDE RECORDS SUMMARY | 2022-04-29 16:37 | XMS_ITS | Encounter Summary ---
:1985 Author [facility] Address [address], [place] [address] Care Team Providers Name Role Phone Marino Rubio PA-C Primary Care Provider Reason for Visit Reason Comments COVID Test Results Encounter Details Date Type Department Care Team Description 07/28/2021 Telephone [facility] or Marino Rubio PA-C COVID Test Results [id number] [facility] [address] [place], [place] [address] [place] [address] [phone] (Wo rk) Social History Tobacco Use Types [...] documented as of this encounter Nursing Notes Jailene Braga LPN - 08/02/2021 10:43 AM CST Fernie notified per phone and states understanding. LE VALVE MECHANIC Marino Rubio PA-C - 07/31/2021 1:08 PM CST Typically variant testing is really just done by [facility] as sample testing and not something that is routinely done. Does not really matter in grand scheme of treatment. LE VALVE MECHANIC Calli Lopez RN - 07/31/2021 10:49 AM CST Images from the original note were not included. Patient/resident care provider request: Input needed lab results; pt inquiring about variant testing Specific Request: RN explained Covid19 instructions for Pt. Pt inquiring about the variant and if further testing is available at this time. We also discussed mAb treatment, pt is within timeline of 10days, however, only has CRS score of 3 (immunocompromised). Clinician sign order and route to Flag for care team/Care team pool Calli Staples RN 07/31/2021, 11:19 AM Risk Scores Covid Risk Score (Compiled) 0 Patient Age 0 BMI 0 BIPOC 0 Empty Metrics: Diabetes, CKD, Vascular, Asthma, Hypertension, Immune Comp Current as of: 07/31/2021 5:52 AM Immunocompromised (3) Patient was notified that COVID-19 testing was positive. Patient has symptoms. Date of onset of symptoms:07/23/2021 Current symptoms consist of: Cough, Shortness of breath or difficulty breathing, New loss of smell, or New loss of taste, Muscle aches, Fatigue and pressure in eyes, nasal congestions Progression of symptoms: not changed Patient was given and able to verbalize home isolation instructions for patients that have tested positive for COVID. ??? Remain in home isolation for: o Immunocompetent Patient: at least 10 days have passed since your symptoms first appeared AND you've not had a fever for 24 hours without fever reducing medicine AND all your symptoms have improved. Loss of taste and smell may persist for weeks or months after recovery and need not delay the end of is olation. o Immunocompromised Patient: at least 20 days have passed since your symptoms first appeared AND you've not had a fever for 24 hours without fever reducing medicine AND all your symptoms have improved. ?? Per CDC guidelines you are able to discontinue Home Isolation on 08/03/2021. 08/13/2021 ??? Until that date: With the exception of emergent or urgent medical needs, do not leave your home.Stay connected with your doctor via video visit or reschedule your in-person visit to a video visit (if applicable). Avoid public areas and transportation. Isolate yourself from others as much as possible by staying in a specific room away from people and pets in your home, use a separate bathroom if available, wear a cloth face covering if you need to be around others in your home. ??? COVID-19 Tests can remain positive for several weeks after your initial test. We do not provide repeat COVID-19 testing for 90 days following a positive test result. If you develop new symptoms, please contact us to speak to a nurse or your clinician. ??? Wash often with soap and water for at least 20 seconds, or use an alcohol- based hand security systems manager containing at least 60% alcohol. Avoid touching your face. Close Contact Information: ??? Close contacts (those whom were within 6 feet of you for a total of 15 minutes or more within 48hours prior to your COVID test) should call their healthcare provider right away if they develop symptoms suggestive of COVID 19. ??? Your close contacts, who are not fully vaccinated, should begin their quarantine as soon as possible by monitoring their health and themselves from others by staying home. It is recommended they test immediately for COVID-19 and if negative, 5-7 days after the last date of exposure Encourage those living with you to wear a mask for 14 days or until they receive a negative test result The duration of quarantine is as follows: o 14 days for individuals who: - Were exposed at home. - Live in congregate living such as long-term care facilities, prisons, or shelters. - Work in healthcare, cement railroad car loader care, or corrections. o For all other individuals, quarantine may be shortened as follows: - Quarantine for 10 days from last exposure date. - Quarantine for 7 days from last exposure date only with a negative COVID-19 test, happening at least 5 full days after last exposure. Individuals awaiting test results should not end quarantine. - These individuals should continue to monitor for symptoms for a full 14 days after last exposure date, even when the quarantine has ended. ??? If your close contact is fully vaccinated, no quarantine is needed, however it is recommended that they be tested 5-7 days post exposure. It is also recommended that they wear a mask in public indoor settings for 14 days or until they receive a negative COVID-19 test result. Encourage those livingwith you to wear a mask for 14 days or until they receive a negative test result. o Note: Any time a new household member gets sick with COVID-19, the quarantine of the remaining non-infected household members, who are not fully vaccinated, will need to be restarted from their last close contact with the new case. o If your close contact is a healthcare employee, they should contact their employer to confirm quarantine details. How to protect yourself and other: ??? Wash your hands often, and frequently clean and disinfect surfaces. ??? Cover all coughs and sneezes. Try to avoid touching your face. ??? Wear a mask any time you are around others, including in your home. ??? Separate yourself from others in your home as much as possible by staying in a specific room or rooms, away from people and pets. ??? You should not share dishes, drinking glasses, cups, eating utensils, towels, or bedding with other people in your home. After using these items, they should be washed thoroughly with soap and water. Clean all high touch surfaces in your home daily. ??? It's important for you to watch for any worsening symptoms, especially if you are at a higher risk for getting very sick from COVID-19. Higher risk groups include people older than age 60 and people who have serious chronic medical conditions like heart disease, diabetes or lung disease. ??? Pay attention to the speed of worsening symptoms. If your symptoms are gradually worsening and you're concerned, try a video visit or call your clinic. Normally symptoms worsen a bit before gettingbetter. ??? Seek care at an emergency room if these symptom suddenly or quickly worsen: Sudden worsening shortness of breath, sudden worsening wheezing, difficulty swallowing, slurred speech, facial numbness, new confusion or inability to arouse, persistent pain or pressure in the chest, leg swelling. Guidance for return to work: ??? Before returning to work, you must contact your employer for return to work instructions. Guidance for return to sports for children: ?? If your child had any of the following: a fever >4 days, was lethargic >7 days, had chills or muscle aches/pains >7 days, OR hospitalized with COVID-19, an in-person visit is required. All other patients may be seen in person or via telemedicine. Patient Resources: ??? Recommended Centers of Disease Control (CDC), [facility], [facility] ([facility]), and [employer] websites for further information on Coronavirus. ??? Advised patient to review COVID-19 handout given to them at time of testing. ??? If patient is interested in Monoclonal Antibody Treatment, refer patient to [facility]. However, treatment is limited at this time. ([facility] site: [email or web address]./diseases/[email or web address]/meds) Oral Antiviral Therapy: Risk Scores Covid Risk Score (Compiled) 0 Patient Age 0 BMI 0 BIPOC 0 Empty Metrics: Diabetes, CKD, Vascular, Asthma, Hypertension, Immune Comp Current as of: 07/31/2021 5:52 AM Is the patient established?Yes Has patient received any monoclonal antibody or antiviral treatment for COVID-19 since confirmation of recent infection? No Is their score greater than or equal to 4? No: Patient not eligible for treatment. Does patient have any questions? No Does patient need documentation as verification of their results? No The following advice may help if you have a fever, sore throat, cough, or sinus infection/pain. Please note that because COVID-19 is a viral infection, an antibiotic won???t soothe or treat the virus. Getting plenty of rest and drinking water to stay hydrated is lew to feeling better. , For fever/sore throat/sinus congestion or pain for all ages over four months old: Use acetaminophen. Follow age and weight-appropriate dosing recommendations and the package instructions. Avoid stomach upset by taking with food or milk. , For adults only with sore throat: zxag-plt-eyyapeq throat lozenges or anesthetic sprays can also help provide pain relief., For Adults only with a bothersome cough or congestion:A cough suppressant should only be used when you need a rest or break from your cough. Use an bqjj-liz-jqfdxzj cough medication that contains dextromethorphan (such as Delsym??) sparingly. and Take a cough expectorant that contains guaifenesin (such as Mucinex??) for three days. This will thin mucus in your chest to make it easier to cough up. Avoid multi-symptom versions, which often have extra letters in their name (such as Mucinex DM??). Drinking water can also help to thin mucus and reduce conges tion. It's important to allow your body to cough up mucus to get better. Calli Hamlin RN 07/31/2021, 10:52 AM LE VALVE MECHANIC Omer Santos CMA - 07/28/2021 9:37 AM CST Lab Results Component Value Date CORONAV Detected (A) 07/27/2021 Lab Status: @[email or web address]([id number])@ LE VALVE MECHANIC documented in this encounter Plan of Treatment Not on filedocumented as of this encounter Visit Diagnoses Not on filedocumented in this encounter Additional Health Concerns Infection Onset Date Last Indicated Resolved Time COVID19 07/27/2021 07/27/2021 08/16/2021 3:17 AM TRIPLE VALVE MECHANIC documented as of this encounter Care Teams Aoc Airspace Control Officer Relationship Specialty Start Date End Date Marino Rubio PA-C PCP - General Physician Fisher Scallop 07/18/19 [address] [place] [address] documented as of this encounter
--- OUTSIDE RECORDS SUMMARY | 2022-04-29 16:37 | XMS_ITS | Encounter Summary ---
:1985 Author Organization [facility] Address [address] [place] [address] Care Team Providers Name Role Phone Marino Rubio PA-C Primary Care Provider Encounter Details Date Type Department Care Team Description 08/28/2021 Office Visit [facility] Drive-Up Con tact with and Drive Up (suspected) exposure [address] to covid-19 [place], [place] [address] Social History Tobacco Use Types Packs/Day Years [...] as of this encounter Visit Diagnoses Diagnosis Contact with and (suspected) exposure to covid-19 documented in this encounter Care Teams Division Manager Relationship Specialty Start Date End Date Marino Rubio PA-C PCP - General Physician Pre Planning Advisor 07/18/[address] [place] [address] documented as of this encounter
--- OUTSIDE RECORDS SUMMARY | 2022-04-29 16:37 | XMS_ITS | Encounter Summary ---
:1985 Author Organization [employer] Address [address] [address] Care Team Providers Name Role Phone Marino Rubio PA-C Primary Care Provider Encounter Details Date Type Department Care Team Description 06/22/2021 Lab Visit [place] Aminah saxena Contact with and (suspected) exposure to covid-19; [id number] [facility] HIV disease ([facility]) [place], [place] [address] Social History Tobacco Use Types Packs/Day Years [...] Associated Comments Diagnosis HIV-1 RNA QUANT Routine 06/22/2021 12:55 HIV disease (HRC) Res ults for this PM TEMPERING KILN TENDER procedure are i n the results section. CBC AND DIFFERENTIAL Routine 06/22/2021 12:55 HIV disease ([facility] ) Results for this PANEL PM TEMPERING KILN TENDER procedure are i n the results section. TREPONEMA SCREEN Routine 06/22/2021 12:55 HIV disease ([facility]) Re sults for this PM TEMPERING KILN TENDER procedure are i n the results section. LIPID PANEL AND Routine 06/22/2021 12:55 HIV disease ([facility]) Res ults for this DIRECT LDL(IF NEEDED) PM TEMPERING KILN TENDER proced ure are in the results section. CREATININE / GFR Routine 06/22/2021 12:55 HIV disease ([facility]C) Re sults for this PM TEMPERING KILN TENDER procedure are i n the results section. COMPLETE BLOOD Routine 06/22/2021 12:55 HIV disease ([facility]) Resu lts for this COUNT-W/DIFF PM TEMPERING KILN TENDER procedure are i n the results section. ALT (SGPT) Routine 06/22/2021 12:55 HIV disease ([facility]) Result s for this PM TEMPERING KILN TENDER procedure are i n the results section. 2019 NOVEL Routine 06/22/2021 12:53 Contact with and Results for this CORONAVIRUS PM TEMPERING KILN TENDER (suspected) procedure are i n exposure to the results covid-19 section. documented in this encounter Results (ABNORMAL) Complete Blood Count-W/Diff (06/22/2021 12:55 PM TEMPERING KILN TENDER) Analysis Performed At Patho logist Time Signature WBC 4.1 3.5 - 10.5 06/22/2021 [place] x10(9)/L 1:04 PM [facility] RBC 4.94 4.32 - 06/22/2021 [place] 5.72 1:04 PM [facility] x10(12)/L Hemoglobin 16.2 13.5 - 06/22/2021 [place] 17.5 g/dL 1:04 PM [facility] HCT 46.3 38.8 - 06/22/2021 [place] 50.0 % 1:04 PM [facility] MCV 93.7 80.0 - 06/22/2021 [place] 100.0 fL 1:04 PM [facility] MCH 32.8 27.6 - 06/22/2021 [place] 33.3 pg 1:04 PM [facility] MCHC 35.0 31.5 - 06/22/2021 [place] 35.2 g/dL 1:04 PM [facility] RDW 11.6 (L) 11.9 - 06/22/2021 [place] 15.5 % 1:04 PM [facility] Platelets 242 150 - 450 06/22/2021 [place] x10(9)/L 1:04 PM [facility] Neutrophil 2.5 1.7 - 7.0 06/22/2021 [place] Absolute 10(9)/L 1:04 PM [facility] Lymphocyte 1.2 1.0 - 4.8 06/22/2021 [place] Absolute 10(9)/L 1:04 PM [facility] Monocytes 0.4 0.2 - 0.9 06/22/2021 [place] Absolute 10(9)/L 1:04 PM [facility] Eosinophil 0.1 0.0 - 0.5 06/22/2021 [place] Absolute 10(9)/L 1:04 PM [facility] Basophil 0.0 0.0 - 0.3 06/22/2021 [place] Absolute 10(9)/L 1:04 PM [facility] Immature Gran % 0.0 0.0 - 0.5 06/22/2021 [facility] % 1:04 PM [facility] Specimen Anatomical Collection Method / Collection Time Recei meg Time (Source) Location / Volume Laterality Blood Venipuncture / 06/22/2021 12:55 Unknown PM TEMPERING KILN TENDER 12:55 PM TEMPERING KILN TENDER Pat Mishra MD LAB_1 Performing Organization Address City/State/ZIP Code Phon e Number [facility] [address] [place] [address] (ABNORMAL) Lipid Panel and Direct LDL(If Needed) (06/22/2021 12:55 PM TEMPERING KILN TENDER) [facility] gist Method Time Signature Cholesterol 207 (H) 0 - 199 06/22/2021 [facility] mg/dL 6:43 PM TEMPERING KILN TENDER [facility]AL [facility] Triglyceride 52 <=149 06/22/2021 [facility] mg/dL 6:43 PM TEMPERING KILN TENDER [facility] HDL Cholesterol 44 >=40 06/22/2021 [facility] mg/dL 6:43 PM TEMPERING KILN TENDER [facility] LDL, Calculated 153 (H) <130 06/22/2021 [facility] mg/dL 6:43 PM TEMPERING KILN TENDER [facility] Non HDL Chol, 163 (H) <=159 06/22/2021 [facility] Calculated mg/dL 6:43 PM TEMPERING KILN TENDER [facility] Cholesterol/HDL 4.7 06/22/2021 [facility] Ratio 6:43 PM TEMPERING KILN TENDER [facility] Hours Fasting 12 06/22/2021 [facility] B 6:43 PM TEMPERING KILN TENDER Specimen Anatomical Collection Method / Collection Time Recei meg Time (Source) Location / Volume Laterality Blood Venipuncture / 06/22/2021 12:55 1 Unknown PM TEMPERING KILN TENDER 12:55 PM TEMPERING KILN TENDER Pat Mishra MD LAB_1 Performing Organization Address City/Special Care Hospital/ZIP Code Phon e Number [facility] [address] [address] [facility] [address] [place] [address], [facility] Treponema Screen (06/22/2021 12:55 PM TEMPERING KILN TENDER) [facility] Method Time Signature Treponema Screen 0.036 {s_co_ratio 06/23/2021 [facility] Result } 9:43 AM TEMPERING KILN TENDER LABORATORY Treponema Screen Non Non 06/23/2021 [facility] Interpretation Reactive Reactive 9:43 AM TEMPERING KILN TENDER LABORATORY Specimen Anatomical Collection Method / Collection Time Recei meg Time (Source) Location / Volume Laterality Blood Venipuncture / 06/22/2021 12:55 1 Unknown PM TEMPERING KILN TENDER 12:55 PM TEMPERING KILN TENDER Pat Mishra MD LAB_1 Performing Organization Address City/State/ZIP Code Phon e Number [facility] [address] [place] [address] (ABNORMAL) HIV-1 RNA Quant by TMA (06/22/2021 12:55 PM TEMPERING KILN TENDER) [facility] Method Time Signature HIV Interp Detected Not 06/23/2021 [facility] (A) Detected 11:35 AM CENTRAL LAB TEMPERING KILN TENDER HIV Copies <30 <30 06/23/2021 [facility] per/ml copies/mL 11:35 AM CENTRAL LAB TEMPERING KILN TENDER HIV Log <1.47 <1.47 log 06/23/2021 [facility] Copies/ml copies/mL 11:35 AM [facility]ENTRAL LAB TEMPERING KILN TENDER Specimen Anatomical Collection Method / Collection Time Recei meg Time (Source) Location / Volume Laterality Blood Venipuncture / 06/22/2021 12:55 1 Unknown PM TEMPERING KILN TENDER 12:55 PM TEMPERING KILN TENDER Narrative [facility] - 06/23/2021 11:35 AM TEMPERING KILN TENDER Test performed by Re Examiner Mediated Amplification (TMA). Pat Mishra MD LAB_1 Performing Organization Address [facility] Phon e Number [facility] [address] [address] Creatinine / GFR (06/22/2021 12:55 PM TEMPERING KILN TENDER) [facility] gist Method Time Signature Creatinine 0.82 0.73 - 06/22/2021 [facility] 1.18 6:43 PM TEMPERING KILN TENDER CENTRAL LAB mg/dL GFR, Estimated >60 >60 06/22/2021 [facility] mL/min/1. 6:43 PM TEMPERING KILN TENDER CENTRAL LAB 73m2 Specimen Anatomical Collection Method / Collection Time Recei meg Time (Source) Location / Volume Laterality Blood Venipuncture / 06/22/2021 12:55 1 Unknown PM TEMPERING KILN TENDER 12:55 PM TEMPERING KILN TENDER Pat Mishra MD LAB_1 Performing Organization Address [facility] Phon e Number [facility] [address] [address] ALT (SGPT) (06/22/2021 12:55 PM TEMPERING KILN TENDER) P athologist Signature ALT (SGPT) 20 0 - 55 U/L 06/22/2021 [facility] 6:43 PM TEMPERING KILN TENDER C[facility]AL [facility] Specimen Anatomical Collection Method / Collection Time Recei meg Time (Source) Location / Volume Laterality Blood Venipuncture / 06/22/2021 12:55 1 Unknown PM TEMPERING KILN TENDER 12:55 PM TEMPERING KILN TENDER Pat Mishra MD LAB_1 Performing Organization Address [facility] Phon e Number [facility] [address] [address] Symptomatic - 2019 Novel Coronavirus (COVID-19) (06/22/2021 12:53 PM TEMPERING KILN TENDER) [facility] Method Time Signature COVID-19 Not Not 06/23/2021 [facility] Interpretation Detected Detected 2:37 PM CENTRAL LAB TEMPERING KILN TENDER Source Nares, left 06/23/2021 [facility] and right 2:37 PM CENTRAL LAB TEMPERING KILN TENDER Specimen Anatomical Collection Method Collection Time Receive d Time (Source) Location / / Volume Laterality Swab (Source ENTIRE ANTERIOR Non-blood 06/22/2021 12:53 06/22/20 21 Required) NARIS / Unknown Collection / PM TEMPERING KILN TENDER 12:53 PM TEMPERING KILN TENDER Unknown Narrative [facility] - 06/23/2021 2:37 PM TEMPERING KILN TENDER Test performed by Re Examiner Mediated Amplification. TMA has been shown to be equivalent to commercial real-time PCR t ests. This test has been authorized by the FDA under an Emergency Use Authorization (EUA) for use by authorized laboratories. Marino Rubio PA-C LAB_1 Performing Organization Address City/State/ZIP Code Phon e Number [facility] [address] [address] documented in this encounter Visit Diagnoses Diagnosis Contact with and (suspected) exposure to covid-19 HIV disease ([facility]) Human immunodeficiency virus [HIV] disea se documented in this encounter Additional Health Concerns Infection Onset Date Last Indicated Resolved Time R/O COVID19 06/22/2021 06/22/2021 06/23/2021 2:37 PM TEMPERING KILN TENDER documented as of this encounter Care Teams Drainage Inspector Relationship Specialty Start Date End Date Marino Rubio PA-C PCP - General Physician Sales And Leasing Agent 07/18/[address] [place] [address] documented as of this encounter
--- OUTSIDE RECORDS SUMMARY | 2022-04-29 16:37 | XMS_ITS | Encounter Summary ---
:1985 Author Organization [facility] Address [address] [address] Care Team Providers Name Role Phone Marino Rubio PA-C Primary Care Provider Reason for Visit Reason Comments Symptoms Encounter Details Date Type Department Care Team Description 10/20/2021 Telephone [facility] [address] M, APR N, Symptoms Infectious Disease RN TRANSITION [address] [place] [address] [place] [address] [phone] (Wo rk) Social History Tobacco Use Types [...] documented as of this encounter Progress Notes Endy Thomas RN - 10/27/2021 12:41 PM CDT Addended by: ENDY THOMAS on: 10/27/2021 12:41 PM Modules accepted: Orders documented in this encounter Nursing Notes Endy Thomas RN - 10/21/2021 10:23 AM CDT Patient informed. He has yet to do his covid test and will do it now. He was also wondering if his Advair and propanolol are influencing symptoms. He's taking a nasal decongestant and montelukast. He will call if symptoms persists. In the meantime, advised BRAT diet, peppermint or padilla tea for the nausea. Jessica White APRN, MIRELLA - 10/21/2021 9:54 AM CDT Thanks for the update. It is hard to know if these symptoms were side effects especially given the number of potential upper respiratory viral illnesses that are circulating now. It could have been coincidental timing. The nausea is puzzling because of the way the medication is administered. Nausea would seem unlikely. I think continuing with another injection is a good idea. If these symptoms happens again, then it becomes more likely to be associated with the injection. One time is not enough to make a firm connection. We can continue to monitor. Endy Thomas RN - 10/20/2021 3:17 PM CDT Patient had his first Cabenuva injection on 10/15. On 10/18 he developed headaches, frontal pressure, bilateral leg pain, and pain on his right buttocks. 2 days ago he had nausea. He's had a runny nose for the past month or so, but starting yesterday his nose has been stuffy. Head hurts most when he coughs. He's wondering how many and if symptoms are Cabenuva side effects vs coming down with viral illness vs sinus infection? I told him 4% of Cabenuva patients develop headaches but like any new regimen, most people just need time to adjust and it can take a few weeks for those initial side effects to subside. I told him I don't know what to make of his nausea as Cabenuva bipasses the gut. Nausea now resolved fortunately. He wants to continue with Cabenuva for now and just wants us to be notified. He did agree to take hison-hand sinus medication, take his at home covid test, and will call us if symptoms worsen or do notapprove. Encouraged him to schedule visit with NEUROPSYCHOLOGY DIRECTOR or [facility]well if he develops more concrete s/s of sinus infection. documented in this encounter Plan of Treatment Not on filedocumented as of this encounter Visit Diagnoses Not on filedocumented in this encounter Care Teams Sales Appointment Coordinator Relationship Specialty Start Date End Date Marino Rubio PA-C PCP - General Physician Tape Making Machine Operator 07/18/19 [address] [place] [address] documented as of this encounter
--- OUTSIDE RECORDS SUMMARY | 2022-04-29 16:37 | XMS_ITS | Encounter Summary ---
:1985 Author Organization [facility] Address [address], [place] [address] Care Team Providers Name Role Phone Marino Rubio PA-C Primary Care Provider Encounter Details Date Type Department Care Team Description 11/05/2021 Orders Only [place], Yenny Major depre ssive disorder, recurrent episode, moderate (HRC) (Primary Dx); Laboratory J, FASHION COORDINATOR, FISH PEDDLER Acute alcoholism (HRC) [address] [address] [place] [address] Social History Tobacco Use Types Packs/Day Years [...] on filedocumented as of this encounter Results (12/06/2021 1:47 PM CDT) athologist Signature 4 1 - 12 12/06/2021 [facility] mIU/mL 8:01 PM CDT C[facility] Specimen Anatomical Collection Method / Collection Time Recei meg Time (Source) Location / Volume Laterality Blood Venipuncture / 12/06/2021 1:47 12/06/2021 1:47 Unknown PM CDT PM CDT Narrative [facility] - 12/06/2021 8:01 PM CDT Expected values for menstruating females Follicular Phase: 2-12 mIU/mL Mid-Cycle Peak: 8-89 mIU/mL Luteal Phase: 1-14 mIU/mL Expected values for postmenopausal femal es On HRT: 5-62 mIU/mL Yenny Sosa APRN, MIRELLA LAB_1 Performing Organization Address [facility] Phon e Number [facility] [address] [address] FSH (12/06/2021 1:47 PM CDT) athologist Signature FSH 5.1 1.0 - 12.0 12/06/2021 [facility] mIU/mL 8:01 PM CDT CENTRAL LAB Specimen Anatomical Collection Method / Collection Time Recei meg Time (Source) Location / Volume Laterality Blood Venipuncture / 12/06/2021 1:47 12/06/2021 1:47 Unknown PM CDT PM CDT Narrative [facility] - 12/06/2021 8:01 PM CDT Expected values for mensturating females Follicular Phase: 3.0-8.1 mIU/mL Mid-Cycle Peak: 2.6-16.7 mIU/mL Luteal Phase: 1.4-5.5 mIU/mL Post Menopausal Females without HRT: 26. 8-133.4 mIU/mL Yenny Sosa APRN, MIRELLA LAB_1 Performing Organization Address [facility] Phon e Number [facility] [address] [address] Testosterone,Free,Bioavailable,Total,Adult Males or Individuals on Testosterone Hormone Therapy (12/06/2021 1:47 PM CDT) Patholo gist Method Time Signature Sex Hormone 24 13 - 74 12/07/2021 [facility] Binding Globulin nmol/L 9:34 AM CDT CENTRAL LAB Adult Testosterone 482 858 - 385 12/07/2021 [facility] ng/dL 9:34 AM CDT CENTRAL LAB Testosterone, 11.9 3.1 - 12/07/2021 [facility] Free 12.8 9:34 AM CDT CENTRAL LAB ng/dL Testosterone, 278.8 71.7 - 12/07/2021 [facility] Bioavailable 300.0 9:34 AM CDT CENTRAL LAB ng/dL Specimen Anatomical Collection Method / Collection Time Recei meg Time (Source) Location / Volume Laterality Blood Venipuncture / 12/06/2021 1:47 12/06/2021 1:47 Unknown PM CDT PM CDT Yenny Sosa APRN, CNP LAB_1 Performing Organization Address [facility] Phon e Number [facility] C[facility]AL [facility] [address] [address] GT (Gamma GT) (12/06/2021 1:47 PM CDT) Patholo gist Method Time Signature GT (Gamma Gt) 47 12 - 64 12/06/2021 [facility] U/L 7:33 PM CDT CENTRAL LAB Specimen Anatomical Collection Method / Collection Time Recei meg Time (Source) Location / Volume Laterality Blood Venipuncture / 12/06/2021 1:47 12/06/2021 1:47 Unknown PM CDT PM CDT Yenny Sosa APRN, CNP LAB_1 Performing Organization Address City/[facility] Phon e Number [facility] [address] [address] T3, Total (12/06/2021 1:47 PM CDT) P athologist Signature Triiodothyroni 113 80 - 200 12/07/2021 [place] ne, Total ng/dL 11:32 PM CDT LABORATORIES (Total T3) Comment: REFERENCE INTERVAL: Triiodothyronine, To dariana (Total T3) Access complete set of age- and/or gende r-specific reference intervals for this test in the [facility] r[facility] Test Directory (Xero). Performed By: [employer] [address] [place] [address] Design Manager: Rachel Morrison MD Specimen Anatomical Collection Method / Collection Time Recei meg Time (Source) Location / Volume Laterality Blood Venipuncture / 12/06/2021 1:47 12/06/2021 1:47 Unknown PM CDT PM CDT Yenny Sosa APRN, CNP LAB_1 Performing Organization Address City/[facility]/ZIP Code Phon e Number [address] [phone] Free T4 (12/06/2021 1:47 PM CDT) P athologist Signature T4, Free 1.00 0.70 - 12/06/2021 [facility] 1.50 ng/dL 7:42 PM CDT CENTRAL LAB Specimen Anatomical Collection Method / Collection Time Recei meg Time (Source) Location / Volume Laterality Blood Venipuncture / 12/06/2021 1:47 12/06/2021 1:47 Unknown PM CDT PM CDT Yenny Sosa APRN, MIRELLA LAB_1 Performing Organization Address [facility] Code Phon e Number [facility] [address] [address] TSH (12/06/2021 1:47 PM CDT) [facility] Method Time Signature TSH, Sensitive 0.98 0.30 - 12/06/2021 [facility] 4.50 8:01 PM CDT CENTRAL LAB uIU/mL Specimen Anatomical Collection Method / Collection Time Recei meg Time (Source) Location / Volume Laterality Blood Venipuncture / 12/06/2021 1:47 12/06/2021 1:47 Unknown PM CDT PM CDT Yenny Sosa APRN, CNP LAB_1 Performing Organization Address [facility] Code Phon e Number [facility] [address] [address] (ABNORMAL) Vitamin D 25-Hydroxy, Total (12/06/2021 1:47 PM CDT) [facility] Method Time Signature Vitamin D, 21 (L) 30 - 80 12/06/2021 [facility] 25-OH, Total ng/mL 7:44 PM CDT CENTRAL LAB Specimen Anatomical Collection Method / Collection Time Recei meg Time (Source) Location / Volume Laterality Blood Venipuncture / 12/06/2021 1:47 12/06/2021 1:47 Unknown PM CDT PM CDT Narrative [facility] C[facility]AL [facility] - 12/06/2021 7:44 PM CDT Expected values Deficiency: <20 ng/mL Insufficiency: 20-29 ng/mL Optimum: 30-80 ng/mL Possible toxicity: >80 ng/mL Yenny Sosa FASHION COORDINATOR, FISH PEDDLER LAB_1 Performing Organization Address City/State/ZIP Code Phon e Number [facility] C[facility]AL [facility] [address] [address] Comp Metabolic Panel (12/06/2021 1:47 PM CDT) [facility] Method Time Signature Sodium 140 136 - 145 12/06/2021 [facility] mmol/L 7:33 PM CDT CENTRAL LAB Potassium 4.7 3.5 - 5.1 12/06/2021 [facility] mmol/L 7:33 PM CDT CENTRAL LAB Chloride 103 98 - 109 12/06/2021 [facility] mmol/L 7:33 PM CDT CENTRAL LAB CO2 27 20 - 29 12/06/2021 [facility] mmol/L 7:33 PM CDT CENTRAL LAB Anion Gap 10 7 - 16 12/06/2021 [facility] mmol/L 7:33 PM CDT CENTRAL LAB Calcium 10.1 8.4 - 12/06/2021 [facility] 10.4 7:33 PM CDT CEN[facility]AL LAB mg/dL BUN 9 7 - 26 12/06/2021 [facility] mg/dL 7:33 PM CDT CENTRAL LAB Creatinine 0.79 0.73 - 12/06/2021 [facility] 1.18 7:33 PM CDT CENTRAL LAB mg/dL GFR, Estimated >60 >60 12/06/2021 [facility] mL/min/1. 7:33 PM CDT CENTRAL LAB 73m2 Alkaline 73 40 - 150 12/06/2021 [facility] Phosphatase U/L 7:33 PM CDT CENTRAL LAB AST (SGOT) 27 10 - 40 12/06/2021 [facility] U/L 7:33 PM CDT C[facility]AL [facility] ALT (SGPT) 44 0 - 55 12/06/2021 [facility] U/L 7:33 PM CDT CENTRAL LAB Bilirubin, 0.5 0.2 - 1.2 12/06/2021 [facility] Total mg/dL 7:33 PM CDT CENTRAL LAB Protein, Total 7.9 6.4 - 8.3 12/06/2021 [facility] g/dL 7:33 PM CDT CEN[facility]AL LAB Albumin 4.5 3.5 - 5.0 12/06/2021 [facility] g/dL 7:33 PM CDT CENTRAL LAB Glucose 96 70 - 100 12/06/2021 [facility] mg/dL 7:33 PM CDT CENTRAL LAB Comment: The given reference range is fo r the fasting state. Non-fasting reference range for glucose is 70 - 180 mg/dL. Hours Fasting 12 12/06/2021 7:[address] [facility] Specimen Anatomical Collection Method / Collection Time Recei meg Time (Source) Location / Volume Laterality Blood Venipuncture / 12/06/2021 1:47 12/06/2021 1:47 Unknown PM CDT PM CDT Yenny Sosa APRN, CNP LAB_1 Performing Organization Address City/State/ZIP Code Phon e Number [facility] [address] [address] [facility] [address] [place], [place] [phone], [facility] documented in this encounter Visit Diagnoses Diagnosis Major depressive disorder, recurrent epi sode, moderate (HRC) - Primary Major depressive disorder, recurrent epi sode, moderate Acute alcoholism (HRC) Acute alcoholic intoxication in alcoholi sm, unspecified documented in this encounter Care Teams Co Founder & Ceo Relationship Specialty Start Date End Date Marino Rubio PA-C PCP - General Physician Housesmith 07/18/[address] [place] [address] documented as of this encounter
--- OUTSIDE RECORDS SUMMARY | 2022-04-29 16:37 | XMS_ITS | Encounter Summary ---
:1985 Author Organization [facility] Address [address], [place] [address] Care Team Providers Name Role Phone Marino Rubio PA-C Primary Care Provider Encounter Details Date Type Department Care Team Description 07/27/2021 Lab Visit [facility] Arthralgia, unspecified join t; [address] [address] Positive DINESH (antinuclear an tibody); [place], [place] [address] Pre-procedure lab exam [phone] Social History Tobacco Use Types Packs/Day Years [...] Procedure Name Priority Date/Time Associated Comments Diagnosis 2019 NOVEL CORONAVIRUS Routine 07/27/2021 11:44 Pre-procedure lab Results for this AM UPPER TRIMMER exam procedure are i n the results section. CARDIOLIPIN Routine 07/27/2021 11:39 Arthralgia, Results for this ANTIBODIES, IGG AND AM UPPER TRIMMER unspecified joint procedure are in IGM Positive DINESH the results (antinuclear section. antibody) ANTI-DS DNA ANTIBODY Routine 07/27/2021 11:39 Arthralgia, Res ults for this (MARLYN ASSAY) AM UPPER TRIMMER unspecified join t procedure are in Positive DINESH the results (antinuclear section. antibody) ANTI-CCP AB Routine 07/27/2021 11:39 Arthralgia, Results for this AM UPPER TRIMMER unspecified join t procedure are in Positive DINESH the results (antinuclear section. antibody) LUPUS ANTICOAGULANT Routine 07/27/2021 11:39 Arthralgia, Resu lts for this WORKUP AM UPPER TRIMMER unspecified join t procedure are in Positive DINESH the results (antinuclear section. antibody) C4 COMPLEMENT Routine 07/27/2021 11:39 Arthralgia, Results fo r this AM UPPER TRIMMER unspecified join t procedure are in Positive DINESH the results (antinuclear section. antibody) C3 COMPLEMENT Routine 07/27/2021 11:39 Arthralgia, Results fo r this AM UPPER TRIMMER unspecified join t procedure are in Positive DINESH the results (antinuclear section. antibody) documented in this encounter Results (ABNORMAL) COVID-19 (ROUTINE)- choose patient type (07/27/2021 11:44 AM UPPER TRIMMER) [facility] gist Method Time Signature COVID-19 Detected Not 07/28/2021 [facility] Interpretation (A) Detected 12:39 AM CENTRAL LAB UPPER TRIMMER Source Nares, left 07/28/2021 [facility] and right 12:39 AM CENTRAL LAB UPPER TRIMMER Specimen Anatomical Collection Method Collection Time Receive d Time (Source) Location / / Volume Laterality Swab (Source ENTIRE ANTERIOR Non-blood 07/27/2021 11:44 07/27/19 22 Required) NARIS / Unknown Collection / AM UPPER TRIMMER 11:44 AM UPPER TRIMMER Unknown Narrative [facility] - 07/28/2021 12:39 AM UPPER TRIMMER Test performed by Acetylene Operator Mediated Amplification. TMA has been shown to be equivalent to commercial real-time PCR t ests. This test has been authorized by the FDA under an Emergency Use Authorization (EUA) for use by authorized laboratories. Naima Bardales MD LAB_1 Performing Organization Address City/State/ZIP Code Phon e Number [facility] [address] [address] [id number]-DNA by Marlyn Assay (07/27/2021 11:39 AM UPPER TRIMMER) athologist Signature Anti-dsDNA Ab <8.0 <8.0 IU/mL 08/03/2021 [facility] (Marlyn Assay) 11:06 PM UPPER TRIMMER INTERFACED Specimen Anatomical Collection Method / Collection Time Recei meg Time (Source) Location / Volume Laterality Blood Venipuncture / 07/27/2021 11:39 2 Unknown AM UPPER TRIMMER 11:39 AM UPPER TRIMMER Narrative [facility]ED - 08/03/2021 11:06 PM UPPER TRIMMER Test(s) [id number] Ab by Marlyn(RDL) was developed and its performance charac teristics determined by [facility]. It has not been cleared or a pproved by the Food and Drug Administration. Performed at: ??01 - [employer] [address] [place] [address] A ??[id number] Travel Pt: Ej Diaz MD, Phone: ? ?[phone] Freeman Garzon MD LAB_1 Performing Organization Address City/[facility]/ZIP Code Phon e Number [facility] INTERFACED [address] [address] [place] [address] C4 - C4 Complement (07/27/2021 11:39 AM UPPER TRIMMER) [facility] Method Time Signature C4 Complement 27.5 15.0 - 07/27/2021 [facility] 53.0 mg/dL 3:19 PM UPPER TRIMMER CENTRAL LAB Specimen Anatomical Collection Method / Collection Time Recei meg Time (Source) Location / Volume Laterality Blood Venipuncture / 07/27/2021 11:39 2 Unknown AM UPPER TRIMMER 11:39 AM UPPER TRIMMER Freeman Garzon MD LAB_1 Performing Organization Address City/State/ZIP Code Phon e Number [facility] CEN[facility]AL LAB [address] [address] C3 - C3 Complement (07/27/2021 11:39 AM UPPER TRIMMER) [facility] [employer] Method Time Signature C3 Complement 115 82 - 185 07/27/2021 [facility] mg/dL 3:19 PM UPPER TRIMMER CENTRAL LAB Specimen Anatomical Collection Method / Collection Time Recei meg Time (Source) Location / Volume Laterality Blood Venipuncture / 07/27/2021 11:39 2 Unknown AM UPPER TRIMMER 11:39 AM UPPER TRIMMER Freeman Garzon MD LAB_1 Performing Organization Address [facility] e Number [facility] [address] [address] CCPIG - Cyclic Citrullinated Peptide AB (07/27/2021 11:39 AM UPPER TRIMMER) [facility] Method Time Signature Anti-CCP Antibody 2 <7 U/mL 07/28/2021 [facility] 11:35 AM [facility] UPPER TRIMMER Anti-CCP Antibody Negative Negative 07/28/2021 [facility] Interpretation 11:35 AM [facility]TRAL LAB UPPER TRIMMER Specimen Anatomical Collection Method / Collection Time Recei meg Time (Source) Location / Volume Laterality Blood Venipuncture / 07/27/2021 11:39 2 Unknown AM UPPER TRIMMER 11:39 AM UPPER TRIMMER Freeman Garzon MD LAB_1 Performing Organization Address [facility] e Number [facility] [address] [address] Cardiolipin Antibodies, IgG and IgM (07/27/2021 11:39 AM UPPER TRIMMER) [facility] Method Time Signature Anticardiolipin 1.1 <=9.9 07/28/2021 [facility] IgG Antibody GPL-u/ml 11:09 AM CENTRAL LAB UPPER TRIMMER Cardiolipin IgG Negative Negative 07/28/2021 [facility] Interp 11:09 AM CENTRAL LAB UPPER TRIMMER Anticardiolipin <0.8 <=9.9 07/28/2021 [facility] IgM Antibody MPL-U/ml 11:09 AM CENTRAL LAB UPPER TRIMMER Cardiolipin IgM Negative Negative 07/28/2021 [facility] Interp 11:09 AM CENTRAL LAB UPPER TRIMMER Specimen Anatomical Collection Method / Collection Time Recei meg Time (Source) Location / Volume Laterality Blood Venipuncture / 07/27/2021 11:39 2 Unknown AM UPPER TRIMMER 11:39 AM UPPER TRIMMER Narrative [facility] CENTRAL LAB - 07/28/2021 11:09 AM UPPER TRIMMER If there is a strong clinical suspicion for antiphospholipid antibody syndrome (APS), consider testing for Lupus anticoagulant and Beta-2 glycoprotein 1 antibodies (IgG and IgM) if these tests have not been pe rformed. Freeman Garzon MD LAB_1 Performing Organization Address City/State/ZIP Code Phon e Number [facility] [address] [address] LACP - Lupus Anticoagulant (07/27/2021 11:39 AM UPPER TRIMMER) Component Value Ref Range Test Analysis Performed Pathologis t Method Time At Signature Protime 12.8 11.8 - 14.6 07/28/2021 [facility] Seconds 10:06 AM HOSPITAL UPPER TRIMMER INR 1.0 0.9 - 1.1 07/28/2021 [facility] 10:06 AM HOSPITAL UPPER TRIMMER APTT 29.9 22.5 - 36.5 07/28/2021 [facility] Seconds 10:06 AM HOSPITAL UPPER TRIMMER Thrombin 16.5 13.8 - 18.7 07/28/2021 [facility] Time Seconds 10:06 AM HOSPITAL UPPER TRIMMER DRVV Screen 1.14 0.78 - 1.22 07/28/2021 [facility] Ratio 10:06 AM HOSPITAL UPPER TRIMMER PTTLA ratio 0.95 0.83 - 1.17 07/28/2021 [facility] 10:06 AM HOSPITAL UPPER TRIMMER Lupus No evidence of No evidence of 07/28/2021 [facility] Anticoag Lupus Lupus-like 10:06 AM HOSPITAL Intrp Anticoagulant anticoagulant UPPER TRIMMER Specimen Anatomical Collection Method / Collection Time Recei meg Time (Source) Location / Volume Laterality Blood Venipuncture / 07/27/2021 11:39 2 Unknown AM UPPER TRIMMER 11:39 AM UPPER TRIMMER Narrative [facility] - 07/28/2021 10:[address] Comment: LA was not detected by PTTLA or DRVVS te sting. Suggest repeat testing as clinically indicated. Freeman Garzon MD LAB_1 Performing Organization Address City/State/ZIP Code Phon e Number [address] [address] documented in this encounter Visit Diagnoses Diagnosis Arthralgia, unspecified joint Positive DINESH (antinuclear antibody) Other and unspecified nonspecific immuno logical findings Pre-procedure lab exam Pre-procedural laboratory examination documented in this encounter Care Teams Hosiery Bagger Relationship Specialty Start Date End Date Marino Rubio PA-C PCP - General Physician Mayonnaise Mixer 07/18/19 [address] [place] [address] documented as of this encounter
--- OUTSIDE RECORDS SUMMARY | 2022-04-29 16:37 | XMS_ITS | Encounter Summary ---
:1985 Author Organization [employer] Address [address], [place] [address] Care Team Providers Name Role Phone Marino Rubio PA-C Primary Care Provider Reason for Visit Reason Comments Injection Encounter Details Date Type Department Care Team Description 01/19/2022 Nursing Visit [facility] 3800 Nurse, [id number] Ifd HIV disease (HRC) (Primary Dx); Infectious Disease Need for COVID-19 vaccine [address] [facility] [place] [address] Social History Tobacco Use Types Packs/Day Years [...] documented as of this encounter Progress Notes Soheila Thomas RN - 01/19/2022 11:15 AM CDT Cabenuva Injection: O: Per Dr. Eaton to administer Cabenuva today. D: Cabenuva was administered by IM injection. A: Patient monitored for symptoms of allergic reaction for 10 minutes. Patient denied shortness of breath, throat swelling, itching, or rash. He will be accompanied by coworkers at work the rest of theafternoon. R: Patient again denied symptoms of allergic reaction upon leaving clinic. documented in this encounter Plan of Treatment Not on filedocumented as of this encounter Visit Diagnoses Diagnosis HIV disease (HRC) - Primary Human immunodeficiency virus [HIV] disea se Need for COVID-19 vaccine documented in this encounter Administered Medications Inactive Administered Medications - up to 3 most recent administrations Medication Order MAR Action Action Date Dose Rate Site cabotegravir-rilpivirine Given 01/19/2022 1 Dose Right Ventralgluteal ER (CABENUVA) 600 mg-900 11:28 AM CDT mg per 6 mL injection (2 x 3 mL vial) 1 Dose (6 mL), Intramuscular, ONCE, On Mon01/19/22 at 1130, For 1 dose, See PI for full [...] Disease documented in this encounter Care Teams Progressive Care Nurse Relationship Specialty Start Date End Date Marino Rubio PA-C PCP - General Physician Integrated Circuit Layout Designer 07/18/19 [address] [place] [address] documented as of this encounter
--- OUTSIDE RECORDS SUMMARY | 2022-04-29 16:37 | XMS_ITS | Encounter Summary ---
:1985 Author Organization [facility] Address [address], [place] [address] Care Team Providers Name Role Phone Marino Rubio PA-C Primary Care Provider Reason for Visit Reason Comments Labs Needed Encounter Details Date Type Department Care Team Description 11/26/2021 Telephone [facility] [address] Jessica White M, APR N, Labs Needed Infectious Disease FACTORY FOCUS TECHNICIAN [address] [place] [address] [place] [address] [phone] (Wo rk) Social History Tobacco Use Types [...] documented as of this encounter Nursing Notes Georgia Hernandez - 11/30/2021 8:30 AM CDT Lvm and sending MC to notify patient to call lab to schedule the appointment for Adrienne Granados Soheila Thomas RN - 11/26/2021 10:39 AM CDT Please help him schedule lab appt at his earliest convenience. I believe he wants to go to [facility] documented in this encounter Plan of Treatment Not on filedocumented as of this encounter Visit Diagnoses Not on filedocumented in this encounter Additional Health Concerns Infection Onset Date Last Indicated Resolved Time R/O COVID19 12/06/2021 12/06/2021 12/07/2021 12:58 AM CDT documented as of this encounter Care Teams Boat And Plant Utility Supervisor Relationship Specialty Start Date End Date Marino Rubio PA-C PCP - General Physician Stencil Machine Operator 07/18/19 [address] [place] [address] documented as of this encounter
--- OUTSIDE RECORDS SUMMARY | 2022-04-29 16:37 | XMS_ITS | Encounter Summary ---
:1985 Author Organization formerly [facility] Address [address] [place] [address] Care Team Providers Name Role Phone Marino Rubio PA-C Primary Care Provider Encounter Details Date Type Department Care Team Description 06/21/2021 Notes/Orders [facility] Marino Rubio, Contact with and [address] [facility] CHEMO (suspected) exposure [place], [place] [phone] [facility] to [place]19 [place] [address] Social History Tobacco Use Types Packs/Day Years [...] on filedocumented as of this encounter Results Symptomatic - 2019 Novel Coronavirus (COVID-19) (06/22/2021 12:53 PM LOT ASSOCIATE) [facility] Method Time Signature COVID-19 Not Not 06/23/2021 [facility] Interpretation Detected Detected 2:37 PM CENTRAL LAB LOT ASSOCIATE Source Nares, left 06/23/2021 [facility] and right 2:37 PM CENTRAL LAB LOT ASSOCIATE Specimen Anatomical Collection Method Collection Time Receive d Time (Source) Location / / Volume Laterality Swab (Source ENTIRE ANTERIOR Non-blood 06/22/2021 12:53 06/22/20 21 Required) NARIS / Unknown Collection / PM LOT ASSOCIATE 12:53 PM LOT ASSOCIATE Unknown Narrative [facility] - 06/23/2021 2:37 PM LOT ASSOCIATE Test performed by House Decorator Mediated Amplification. TMA has been shown to be equivalent to commercial real-time PCR t ests. This test has been authorized by the FDA under an Emergency Use Authorization (EUA) for use by authorized laboratories. Marino Rubio PA-C LAB_1 Performing Organization Address City/State/ZIP Code Phon e Number [facility] [address] [phone] documented in this encounter Visit Diagnoses Diagnosis Contact with and (suspected) exposure to covid-19 documented in this encounter Care Teams General Internist And Physician Leader Relationship Specialty Start Date End Date Marino Rubio PA-C PCP - General Physician Vp Cardiovascular 07/18/19 [address] [place] [address] documented as of this encounter
--- OUTSIDE RECORDS SUMMARY | 2022-04-29 16:37 | XMS_ITS | Encounter Summary ---
:1985 Author Organization [facility] Address [address] [address] Care Team Providers Name Role Phone Marino Rubio PA-C Primary Care Provider Encounter Details Date Type Department Care Team Description 07/26/2021 Notes/Orders [facility] [address] Naima Bardales, Pre- procedure lab Ear, Nose, and Throa t exam (Primary Dx) [address] [place] [address] [phone] (Wo rk) Social History Tobacco Use Types [...] on filedocumented as of this encounter Results (ABNORMAL) COVID-19 (ROUTINE)- choose patient type (07/27/2021 11:44 AM STRADDLE TRUCK OPERATOR) [facility] Method Time Signature COVID-19 Detected Not 07/28/2021 [facility] Interpretation (A) Detected 12:39 AM CENTRAL LAB STRADDLE TRUCK OPERATOR Source Nares, left 07/28/2021 [facility] and right 12:39 AM [facility] STRADDLE TRUCK OPERATOR Specimen Anatomical Collection Method Collection Time Receive d Time (Source) Location / / Volume Laterality Swab (Source ENTIRE ANTERIOR Non-blood 07/27/2021 11:44 07/27/19 22 Required) NARIS / Unknown Collection / AM STRADDLE TRUCK OPERATOR 11:44 AM STRADDLE TRUCK OPERATOR Unknown Narrative [facility] - 07/28/2021 12:39 AM STRADDLE TRUCK OPERATOR Test performed by Plaster And Stucco Worker Mediated Amplification. TMA has been shown to be equivalent to commercial real-time PCR t ests. This test has been authorized by the FDA under an Emergency Use Authorization (EUA) for use by authorized laboratories. Naima Bardales MD LAB_1 Performing Organization Address City/State/ZIP Code Phon e Number [facility] [address] [address] documented in this encounter Visit Diagnoses Diagnosis Pre-procedure lab exam - Primary Pre-procedural laboratory examination documented in this encounter Care Teams Breaking Machine Operator Relationship Specialty Start Date End Date Marino Rubio PA-C PCP - General Physician Tick Sewer 07/18/19 [address] [place] [address] documented as of this encounter
--- OUTSIDE RECORDS SUMMARY | 2022-04-29 16:37 | XMS_ITS | Encounter Summary ---
:1985 Author Organization [email or web address] Address [address] [place] [address] Care Team Providers Name Role Phone Marino Rubio PA-C Primary Care Provider Encounter Details Date Type Department Care Team Description 08/27/2021 Notes/Orders [place] [facility] Marino Rubio, Co ntact with and Drive Up CHEMO (suspected) exposure [address] [address] [facility] to covid-19 [place], [place] [address] [place], [place] [phone] [address] Social History Tobacco Use Types Packs/Day Years [...] covid-19 documented in this encounter Care Teams Instructional Technology Coach Relationship Specialty Start Date End Date Marino Rubio PA-C PCP - General Physician Sonographer 07/18/19 [address] [place] [address] documented as of this encounter
--- OUTSIDE RECORDS SUMMARY | 2022-04-29 16:37 | XMS_ITS | Encounter Summary ---
:1985 Author Organization [employer] Address [address] [address] Care Team Providers Name Role Phone Marino Rubio PA-C Primary Care Provider Reason for Visit Reason Comments Injection Encounter Details Date Type Department Care Team Description 11/19/2021 Nursing Visit [facility] 3800 Nurse, P3800 Ifd HIV disease (HRC) Infectious Disease (Primary Dx) [address] [facility] [place], [place] [address] Social History Tobacco Use Types Packs/Day Years [...] encounter Nursing Notes Steve Castaneda RN - 11/19/2021 11:15 AM CDT Per order of Jessica White NP, injection of Cabenuva given. Patient instructed to remain in clinicfor 20 minutes afterwards and to report any adverse reaction immediately. Patient denies any adversereaction. Patient reminded to complete safety labs since he did not want to complete them here today. Patient stated his depression has improved and will call if he has worsening depression/symptoms. documented in this encounter Plan of Treatment Not on filedocumented as of this encounter Results (ABNORMAL) HIV-1 RNA Quant by TMA (12/06/2021 1:47 PM CDT) [facility] Method Time Signature HIV Interp Detected Not 12/08/2021 [facility] (Felipe) Detected 11:29 AM CENTRAL LAB CDT HIV Copies <30 <30 12/08/2021 [facility] per/ml copies/mL 11:29 AM CENTRAL LAB CDT HIV Log <1.47 <1.47 log 12/08/2021 [facility] Copies/ml copies/mL 11:29 AM CENTRAL LAB CDT Specimen Anatomical Collection Method / Collection Time Recei meg Time (Source) Location / Volume Laterality Blood Venipuncture / 12/06/2021 1:47 12/06/2021 1:47 Unknown PM CDT PM CDT Narrative [facility] - 12/08/2021 11:29 AM CDT Test performed by Rn Psych Mediated Amplification (TMA). Jessica White APRN, DIRECTOR OF VITAL STATISTICS LAB_1 Performing Organization Address City/State/ZIP Code Phon e Number [facility] [address] [address] documented in this encounter Visit Diagnoses Diagnosis HIV disease (HRC) - Primary Human immunodeficiency virus [HIV] disea se documented in this encounter Administered Medications Inactive Administered Medications - up to 3 most recent administrations Medication Order MAR Action Action Date Dose Rate Site cabotegravir-rilpivirine Given 11/19/2021 1 Dose Right Ventralgluteal ER (CABENUVA) 600 mg-900 11:48 AM CDT mg per 6 mL injection (2 x 3 mL vial) 1 Dose (6 mL), Intramuscular, ONCE, On Mon11/19/21 at 1145, For 1 dose, See PI for full [...] Disease documented in this encounter Care Teams Brick Kiln Worker Relationship Specialty Start Date End Date Marino Rubio PA-C PCP - General Physician Manager French 07/18/19 [address] [place] [address] documented as of this encounter
--- OUTSIDE RECORDS SUMMARY | 2022-04-29 16:37 | XMS_ITS | Encounter Summary ---
:1985 Author Organization [employer] Address [address], [place] [address] Care Team Providers Name Role Phone Marino Rubio PA-C Primary Care Provider Reason for Visit Reason Comments Provider Orders Encounter Details Date Type Department Care Team Description 08/18/2021 Telephone [facility] 38[address] Jessica White, Pro vider Orders Infectious Disease INTERNET ECOMMERCE SPECIALIST, SUPERVISOR GROVE [address] [facility] [place] [address] [phone] Social History Tobacco Use Types Packs/Day Years [...] documented as of this encounter Nursing Notes Soheila Thomas RN - 09/02/2021 10:55 AM CST Fernie called to say his oral lead in arrived. His last dose of Biktarvy was yesterday and he plans tostart oral cabenuva today. Counseled on taking it with at least 400 calories including fat. He plansto take it with breakfast since he typically only gets heartburn at night. Initial injection scheduled. He agreed to contact clinic to report any side effects/concerns before his injection. Pat Salinas MD - 08/27/2021 2:52 PM CST Great news! I did call and ensure he was clear about acid blockers, he does use Tums. Advised he avoid within 4 or at least 2 hours before/after the oral Cabenuva pills. Soheila Garcia RN - 08/27/2021 2:18 PM CST Received letter from [facility]: Pharmacy PA request #[id number] We have received your request for CABENUVA 600mg-900mg ER SUSP for the member identified above and have approved the request as follows: CABENUVA 600mg-900mg ER SUSP, quantity/billable units of 2900, approved for 09/21/21 through 09/20/22. Approved J-code: J0741 Patient informed and with the patient on the line, called [facility] pharmacy who agreed to ship the hmsr-gjml-vr to patient's home next week. Patient's copay is $3 and he declined patient assistance. Did Med Ed with patient over the phone: discussed how to take, side effects, when to contact clinic,target date, not to take [facility], and call us if his insurance changes. Patient agreed to call us next week when shipment arrives so we can arrange first injections and safety labs at 8 weeks. FYI Soheila Garcia RN - 08/27/2021 1:04 PM CST Called [facility], was told they never received any PA from us. Confirmed with the agent I sent it to the right fax number. And I did received a fax confirmation as well. They apologized. Was able to initiate a PA over the phone. Expect determination within 1 to 5 days. Will fax clinical info to a different fax this time: [phone] MIKE# [id number] INAL OPERATOR Soheila Thomas RN - 08/20/2021 10:08 AM CST PA forms faxed to [facility] PA Dept. INAL OPERATOR Jessica White APRN, SUPERVISOR GROVE - 08/19/2021 4:39 PM CST Letter slightly edited and ready to send. Fortunately he does tolerate the Biktarvy well if the PA is not approved. INAL OPERATOR Soheila Thomas RN - 08/18/2021 2:03 PM CST Cabenuva requires a PA. PA requires letter of medical necessity. Letter draft initiated in letters tab. Please edit freely. INAL OPERATOR documented in this encounter Plan of Treatment Not on filedocumented as of this encounter Visit Diagnoses Not on filedocumented in this encounter Care Teams Licensed And Certified Midwife Relationship Specialty Start Date End Date Marino Rubio PA-C PCP - General Physician News Camera Person 07/18/19 [address] [place] [address] documented as of this encounter
--- OUTSIDE RECORDS SUMMARY | 2022-04-29 16:37 | XMS_ITS | Encounter Summary ---
:1985 Author Organization [facility] Address [address], [place] [address] Care Team Providers Name Role Phone Marino Rubio PA-C Primary Care Provider Encounter Details Date Type Department Care Team Description 12/06/2021 Lab Visit [facility] HIV disease ([facility]); [address] [facility] Fever and chills [place], [place] [address] Social History Tobacco Use [...] Priority Date/Time Associated Comments Diagnosis 2019 NOVEL Routine 12/06/2021 1:39 PM HIV disease ( [facility]) Results for this CORONAVIRUS CDT Fever and chills procedure a re in the results section. documented in this encounter Results COVID-19 (ROUTINE)- choose patient type (12/06/2021 1:39 PM CDT) [facility] Method Time Signature COVID-19 Not Not 12/07/2021 [facility] Interpretation Detected Detected 12:58 AM CENTRAL LAB CDT Source Nares, left 12/07/2021 [facility] and right 12:58 AM CENTRAL LAB CDT Specimen Anatomical Collection Method Collection Time Receive d Time (Source) Location / / Volume Laterality Swab (Source Non-blood 12/06/2021 1:39 PM 1:39 Required) Collection / CDT PM CDT Unknown Narrative [facility] - 12/07/2021 12:58 AM CDT Test performed by Mold Shifter Mediated Amplification. TMA has been shown to be equivalent to commercial real-time PCR t ests. This test has been authorized by the FDA under Emergency Use Authorization (E UA) for use by authorized laboratories. Pat Mishra MD LAB_1 Performing Organization Address City/State/ZIP Code Phon e Number [facility] [address] [address] documented in this encounter Visit Diagnoses Diagnosis HIV disease (HRC) Human immunodeficiency virus [HIV] disea se Fever and chills Fever, unspecified documented in this encounter Additional Health Concerns Infection Onset Date Last Indicated Resolved Time R/O COVID19 12/06/2021 12/06/2021 12/07/2021 12:58 AM CDT documented as of this encounter Care Teams Group Counselor Relationship Specialty Start Date End Date Marino Rubio PA-C PCP - General Physician Tire Repairman 07/18/19 [address] [place] [address] documented as of this encounter
--- OUTSIDE RECORDS SUMMARY | 2022-04-29 16:38 | XMS_ITS | Encounter Summary ---
:1985 Author Organization [email or web address] Address [address], [place] [address] Care Team Providers Name Role Phone Marnio Rubio PA-C Primary Care Provider Reason for Referral Therapies (Routine) - Closed Specialty Diagnoses / Procedures Referred By Contact Refer red To Contact Diagnoses Paresthesia Pain in both upper extremities Pain in both wrists Marino Rubio PA-C [address] [place] [address] Referral ID Status Reason Start Date Expiration Date Visits Requ ested Visits Authorized [id number] Closed 02/02/2021 02/02/2022 1 1 Scheduling Instructions Your provider has recommended an appoint ment with [facility]. You may call [phone] to schedule yo ur appointment. We suggest you call your health insurance company about your cove rage and benefits for this appointment. Reason for Visit Reason Comments RESULTS, TEST Encounter Details Date Type Department Care Team Description 02/01/2021 Telephone [place] [address] Family Chetan Rubio PA-C RESULTS, TEST Medicine [address] [facility] [address] [place] [address] [place] [address] [phone] Social History Tobacco Use Types Packs/Day Years [...] documented as of this encounter Nursing Notes Clari Vásquez LPN - 02/02/2021 9:34 AM CDT Spoke to patient, read message, patient has no questions. Britney Carrasco PA-C - 02/02/2021 9:19 AM CDT Please notify pt that the next step recommended by the PM&R doctor was occupational therapy so Iput in a referral to OT for him, please give him number to call and schedule, if he has more questions Don is in tomorrow and he can address it then. Thanks, Britney Soha Grace RN - 02/02/2021 8:42 AM CDT Clinician Action: Input needed regarding Test results Clinician Next Step: Route to [facility] to follow up and Patient IS expecting a call back fromcare team Specific Request(s): 1. Patient requesting next steps, OT as recommended, etc. Patient requesting EMG results - did advise results came back WNL, OT recommended per visit report. Routing to partner, see also mychart encounter from last week, pt requesting follow up soon as workers comp is pressuring pt for next steps. Arelis Lott - 02/01/2021 5:08 PM CDT Test Results (Advise caller/patient can view test results in MyChart, if enrolled) What test are you calling about? Emg Primary Manager Information: Marino Rubio PA-C Who ordered the test? (include first & last name) Marino Rubio PA-C When and where was the test done? 12.31.20 Additional comments (related to the above concern): Pt would like a call back due to workers comp. If a prescription is needed, patient would like it filled at the pharmacy listed in Meds & Orders. (Verify the pharmacy patient would like to use for this request is highlighted in blue in PharmacySelection under Meds & Orders) Is it okay to leave a detailed message on your voicemail? Yes (Advise caller that the PN call back number will end with [phone] or unknown) Please route to: Triage Pool documented in this encounter Plan of Treatment Scheduled Referrals Name Type Priority Associated Diagnoses Order [facility] Occupational Therapy Referral Routine Paresthesia Ordered: 02/02/2021 Pain in both upper extremities Pain in both wrists documented as of this encounter Visit Diagnoses Diagnosis Paresthesia - Primary Disturbance of skin sensation Pain in both upper extremities Pain in both wrists Pain in joint, forearm documented in this encounter Care Teams Ruby Software Developer Relationship Specialty Start Date End Date Marino Rubio PA-C PCP - General Physician Sanitary Landfill Supervisor 07/18/19 [address] [place] [address] documented as of this encounter
--- OUTSIDE RECORDS SUMMARY | 2022-04-29 16:38 | XMS_ITS | Encounter Summary ---
:1985 Author Organization [facility] Address [address] [address] Care Team Providers Name Role Phone Marino Rubio PA-C Primary Care Provider Reason for Visit Reason Onset Date Comments Refill 07/10/2020 propranolol (INDERAL LA) 60 MG 24 hour release capsule Encounter Details Date Type Department Care Team Description 07/10/[address] [facility] [address] [place] [address] Marino Rubio R efill (propranolol Medicine CHEMO (INDERALLA) [address] hour release capsule) [place], [place] [address] [phone] Social History Tobacco Use Types Packs/Day Years [...] documented as of this encounter Nursing Notes Ena Campa RN - 07/10/2020 12:07 PM CST Renewed medication per medication refill protocol. Requested Prescriptions Pending Prescriptions Disp Refills propranolol (INDERALLA) 60 MG 24 hour release capsule 90 Capsule 3 Sig: Take 1 Capsule by mouth daily. IN WINDER TENDER Interface, Out Speedment Query - 07/10/2020 9:00 AM CST propranolol (INDERALLA) 60 MG 24 hour release capsule Medication started: 09/20/2019 Last ordered by MARINO RUBIO: 09/20/2019 (294 days ago) QTY: 90, Refills: 3, Sig: take 1 capsule by mouth daily. (unchanged) -> Refill x 12 months, qty: 90, refills: 3 (until due for an office visit) Last qualifying visit: 06/12/2020 (with MARINO RUBIO) Next scheduled visit: None Powered by [employer], Reference: [id number], 07/10/2020 9:00:47 AM BOBBIN WINDER TENDER, Pool: PN REFILL WIZARD ADMIN ([id number]) IN WINDER TENDER Leena Carrizales - 07/10/2020 8:59 AM CST Medications - Refill Request (able to re-order) Name of prescribing clinician: Marino Rubio PA-C Additional comments (related to the above concern): For this refill, patient would like it filled at the pharmacy listed in Meds & Orders. (Verify the pharmacy patient would like to use for this request is highlighted in blue in Pharmacy Selection under Meds & Orders) If there are questions regarding your request, is it okay to leave a detailed message on your voicemail? Yes (Advise caller that the PN call back number will end with [phone] or unknown) (Advise caller of turn around time is 2 business days for standard refills and 2 to 5 business days for controlled refills) Please route to: Refill Pool (P [id number]) [place] FP Pool [place] Patients ONLY (P [id number]) [facility] [place] ONLY (P [id number]) IN WINDER TENDER documented in this encounter Plan of Treatment Not on filedocumented as of this encounter Visit Diagnoses Diagnosis Anxiety (HRC) Anxiety state, unspecified documented in this encounter Care Teams Back Order Clerk Relationship Specialty Start Date End Date Marino Rubio PA-C PCP - General Physician Hairspring Truing Inspector 07/18/19 [address] [place] [address] documented as of this encounter
--- OUTSIDE RECORDS SUMMARY | 2022-04-29 16:38 | XMS_ITS | Encounter Summary ---
:1985 Author Organization [facility] Address [address] [address] Care Team Providers Name Role Phone Marino Rubio PA-C Primary Care Provider Reason for Visit Reason Comments SLEEP PROBLEM--ED ANXIETY Encounter Details Date Type Department Care Team Description 09/24/2020 Nurse Triage [place] [address] Marino Rubio, SLEEP IN OBLEM--ED; Family Medicine CHEMO ANXIETY [address] [address] [place] [address] [phone] Social History Tobacco Use Types Packs/Day Years [...] documented as of this encounter Nursing Notes Soha Grace RN - 09/24/2020 3:24 PM CST Clinician Action: Input needed regarding ongoing symptoms Clinician Next Step: Reply in MyChart Specific Request(s): 1. Patient requests next steps in anxiety treatment Reason for Disposition ??? Started on anti-anxiety medication and no relief Protocols used: ANXIETY AND PANIC [id number] Patient reports has been feeling very nervous the past month since starting buspar. Feels like his whole body is anxious, nervous feeling across his skin, fidgity feet, difficulty sitting still. Anxiety feeling worse, rather than better. Advised will check with pcp - needs follow up, but pcp may recommend med change prior to visit. Problem list reviewed as related to this call. See mychart encounter same day. INE SOLE LEVELER Rolan Boyd - 09/24/2020 10:04 AM CST Symptoms Describe your symptoms (if pain, include location): Not sleeping, anxious, palpitation, When did they start? Last month Additional comments (related to the above concern): caller states pt started new medication last month and it might be side effect from rx. Would like to know if rx dose should be lowered. Please advise If a prescription is needed, patient would [...] number will end with 1111 or unknown) For urgent symptoms: Please route and transfer to: Triage Pool (high priority) For routine symptoms: Please route to: Triage Pool (only transfer if caller insists) INE SOLE LEVELER documented in this encounter Plan of Treatment Not on filedocumented as of this encounter Visit Diagnoses Not on filedocumented in this encounter Care Teams Rn Angiography Relationship Specialty Start Date End Date Marino Rubio PA-C PCP - General Physician Aquatic Biologist 07/18/19 [address] [place] [address] documented as of this encounter
--- OUTSIDE RECORDS SUMMARY | 2022-04-29 16:38 | XMS_ITS | Encounter Summary ---
:1985 Author Organization [facility] Address [address] [address] Care Team Providers Name Role Phone Marino Gardiner PA-C Primary Care Provider Reason for Visit Reason Comments Refill buPROPion (WELLBUTRIN XL) 15 0 MG 24 hour release tablet [Pharmacy Med Name: BUPROPION HCL ER (XL) 150MG TB24] Encounter Details Date Type Department Care Team Description 07/06/2020 Refill [place] [id number] [place] [address] Marino Gardiner R efill (buPROPion Medicine CHEMO (WELLBUTRIN XL) [address] 24 hour release tablet [place], [place] [address] [Pharmacy Med Name: [id number] BUPROPION HCL ER (XL) [phone] 150MG TB2 4]) Social History Tobacco Use Types Packs/Day Years [...] documented as of this encounter Nursing Notes Interface, Out Surescripts Prov Query - 07/06/2020 4:26 PM CST buPROPion (WELLBUTRIN XL) 150 MG 24 hour release tablet [Pharmacy Med Name: BUPROPION HCL ER (XL) 150MG TB24] Medication started: 04/13/2020 Last ordered by MARINO GARDINER: 06/12/2020 (24 days ago) QTY: 30, Refills: 1, Sig: take 1 tablet bymouth daily. (changed but equivalent) -> The patient is requesting refills too soon, the current prescription is due to run out on 08/11/2020. -> Refill x 12 months, qty: 90, refills: 3 (until due for an office visit) Last qualifying visit: 06/12/2020 (with MARINO GARDINER) Next scheduled visit: None Powered by Above All Software, Reference: [id number], 07/06/2020 4:26:02 PM BRICK OFFBEARER, Pool: [place] ([id number]) K OFFBEARER documented in this encounter Plan of Treatment Not on filedocumented as of this encounter Visit Diagnoses Diagnosis Anxiety Anxiety state, unspecified documented in this encounter Care Teams Culinary Chef Relationship Specialty Start Date End Date Marino Gardiner PA-C PCP - General Physician Custodian Athletic Equipment 07/18/19 [address] [place] [address] documented as of this encounter
--- OUTSIDE RECORDS SUMMARY | 2022-04-29 16:38 | XMS_ITS | Encounter Summary ---
:1985 Author Organization [facility] Address [address] [address] Care Team Providers Name Role Phone Marino Rubio PA-C Primary Care Provider Reason for Visit Reason Onset Date Comments Refill 12/08/2020 Encounter Details Date Type Department Care Team Description 12/08/2020 Refill [facility] [address], Refill Disease [address] [place] [address] [place], [place] [address] (Wo rk) Social History Tobacco Use Types [...] [HIV] disea se documented in this encounter Care Teams Screedman Relationship Specialty Start Date End Date Marino Rubio PA-C PCP - General Physician Passenger Car Inspector 07/18/19 [address] [place] [address] documented as of this encounter
--- OUTSIDE RECORDS SUMMARY | 2022-04-29 16:38 | XMS_ITS | Encounter Summary ---
:1985 Author Organization [facility] Address [address], [place] [address] Care Team Providers Name Role Phone Marino Rubio PA-C Primary Care Provider Reason for Visit Procedure/Equipment (Routine) - Incomplete Specialty Diagnoses / Procedures Referred By Contact Refer red To Contact Diagnoses Persistent cough for 3 weeks or longer Mild intermittent asthma without complication (HRC) Marino Rubio PA-C Procedures XR Chest 2 Views [address] [place] [address] Referral ID Status Reason Start Date Expiration Date Visits V isits Requested Authorized [id number] Incomplete 04/02/2021 07/02/2022 1 1 Encounter Details Date Type Department Care Team Description 04/02/2021 Ancillary [facility] Marino Rubio, Persistent cough for 3 weeks or longer; Procedure [id number] [facility] CHEMO Mild [place] [address] [facility] [address] [place], [place] [phone] [address] Social History Tobacco Use Types Packs/Day Years [...] encounter Procedures Procedure Name Priority Date/Time Associated Diagnosis Comme nts XR CHEST 2 VIEWS Routine 04/02/2021 12:01 PM Persistent cough for 3 Results for this CDT weeks or longer procedure are in Mild intermittent the result s asthma without section. complication documented in this encounter Results XR Chest 2 Views (04/02/2021 12:01 PM CDT) Anatomical Region Laterality Modality Chest, Lung Digital Radiography Specimen (Source) Anatomical Collection Method Collection Time Re ceived Time Location / / Volume Laterality 04/02/2021 11:50 AM CDT Impressions 04/02/2021 1:26 PM CDT COMPARISON: ??None. FINDINGS: ??y 2 views. Lungs are clear. No pleural fluid or pneumothorax. Heart size is within normal limits. No significant osseous findings. Metallic pellet noted in the subcutaneous soft tissues of the back. IMPRESSION: Clear lungs, no acute findin gs. Procedure Note Joselito Chan MD - 04/02/2021Formatti ng of this note might be different from the original. IMPRESSION COMPARISON: None. FINDINGS: y 2 views. Lungs are clear. No pleural fluid or pneumothorax. Heart size is within normal limits. No significant osseous findings. Metallic pellet noted in the subcutaneous soft tissues of the back. IMPRESSION: Clear lungs, no acute findin gs. Marino Rubio PA-C RAD GD documented in this encounter Visit Diagnoses Diagnosis Persistent cough for 3 weeks or longer Mild intermittent asthma without complic ation (HRC) Unspecified asthma documented in this encounter Care Teams Medical Delivery Driver Relationship Specialty Start Date End Date Marino Rubio PA-C PCP - General Physician Division Roadmaster 07/18/19 [address] [place] [address] documented as of this encounter
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
--- OUTSIDE RECORDS SUMMARY | 2022-04-29 16:38 | XMS_ITS | Encounter Summary ---
:1985 Author Organization [employer] Address [address], [place] [address] Care Team Providers Name Role Phone Marino Rubio PA-C Primary Care Provider Reason for Visit Reason Onset Date Comments Refill 04/24/2021 buPROPion (WELLBUTRI N XL) 300 MG 24 hour release tablet Refill 05/01/2021 Encounter Details Date Type Department Care Team Description 04/24/2021 Refill [place] [id number] [place] [address] Marino Rubio R efill (buPROPion Medicine CHEMO (WELLBUTRIN XL) [address] 24 hour release tablet); [place], [place] [address] Refill [id number] [phone] Social History Tobacco Use Types Packs/Day Years [...] documented as of this encounter Nursing Notes Patricia Mayfield RN - 04/24/2021 4:41 PM CDT Further Assistance Needed on Refill from Clinician RN reviewed. Medication ordered for short term. Please advise if intermodal owner operator truck driver supply is appropriate Last qualifying visit: 04/02/2021 (with MARINO RUBIO) Next scheduled visit: None Review pended order for accuracy. Sign if appropriate. Document if appointment is needed for furtherrefills. Route to care team to notify patient if needed. Requested Prescriptions Pending Prescriptions Disp Refills buPROPion (WELLBUTRIN XL) 300 MG 24 hour release tablet 90 Tablet 3 Sig: Take 1 Tablet by mouth daily. Interface, Out Surescripts Prov Query - 04/24/2021 4:18 PM CDT buPROPion (WELLBUTRIN XL) 300 MG 24 hour release tablet Medication started: 04/13/2020 Last ordered by MARINO RUBIO: 08/07/2020 (260 days ago) QTY: 7, Refills: 0, Sig: take 1 tablet bymouth daily. (unchanged) -> Refill x 12 months, qty: 90, refills: 3 (until due for an office visit) Last qualifying visit: 04/02/2021 (with MARINO RUBIO) Next scheduled visit: None Powered by [employer]ue[employer] by [employer], Reference: [id number], 04/24/2021 4:18:05 PM CDT, Pool:[place] [facility] WIZARD ADMIN ([id number]) Interface, Out Surescripts Prov Query - 04/24/2021 10:30 AM CDT The patient chart could not be locked at 04/24/2021 10:30 AM by Zwamy in order to process this refill request. Please try re-routing to attempt to retry processing through Zwamy. Shelley Brito - 04/24/2021 10:28 AM CDT Medications - Refill Request (able to re-order) Name of prescribing clinician: Chetan Rubio PA-C Additional comments (related to the above concern): Will be out by of next week. For this refill, patient would like it filled at the pharmacy listed in Meds & Orders. (Verify the pharmacy patient would like to use for this request is highlighted in blue in Pharmacy Selection under Meds & Orders)- verified today 04/24 If there are questions regarding your request, is it okay to leave a detailed message on your voicemail? Yes (Advise caller that the PN call back number will end with [phone] or unknown) (Advise caller of turn around time is 2 business days for standard refills and 2 to 5 business days for controlled refills) Please route to: Refill Pool (P [id number]) [place] FP Pool [place] Patients ONLY (P [phone]) [facility] Refill Pool (P [id number]) documented in this encounter Plan of Treatment Not on filedocumented as of this encounter Visit Diagnoses Diagnosis Anxiety (HRC) Anxiety state, unspecified documented in this encounter Care Teams Track Layer Head Relationship Specialty Start Date End Date Marino Rubio PA-C PCP - General Physician Filer Repairer 07/18/19 [address] [place] [address] documented as of this encounter
--- OUTSIDE RECORDS SUMMARY | 2022-04-29 16:38 | XMS_ITS | Encounter Summary ---
:1985 Author Organization [email or web address] Address [address], [place] [address] Care Team Providers Name Role Phone Marino Rubio PA-C Primary Care Provider Reason for Visit Reason Comments Refill busPIRone (BUSPAR) 10 MG tab let [Pharmacy Med Name: BUSPIRONE HCL 10MG TABS] Encounter Details Date Type Department Care Team Description 05/27/2021 Refill [place] [address] [place] [address] Marino Rubio R efill (busPIRone Medicine CHEMO (BUSPAR) 10 MG tablet [address] [Pharmacy Med Name: [place], [place] [address] BUSPIRONE HCL 10MG [id number] TABS]) [phone] Social History Tobacco Use Types Packs/Day Years [...] documented as of this encounter Nursing Notes Radha Morgan RN - 05/28/2021 2:51 PM CDT Requested Prescriptions Refused Prescriptions Disp Refills ??? busPIRone (BUSPAR) 10 MG tablet [Pharmacy Med Name: BUSPIRONE HCL 10MG TABS] 180 Tablet 3 Sig: TAKE ONE TABLET BY MOUTH TWICE A DAY Refused By: RADAH MORGAN Reason for Refusal: Med replaced or stopped Maribel Segovia RN - 05/28/2021 2:06 PM CDT Further Assistance Needed on Refill from Nursing/Triage Requested medication was discontinued Next steps: Nursing/Triage to complete refill as appropriate. Requested Prescriptions Pending Prescriptions Disp Refills ??? busPIRone (BUSPAR) 10 MG tablet [Pharmacy Med Name: BUSPIRONE HCL 10MG TABS] 180 Tablet 3 Sig: TAKE ONE TABLET BY MOUTH TWICE A DAY Interface, Out Surescripts Prov Query - 05/27/2021 7:49 AM CDT busPIRone (BUSPAR) 10 MG tablet [Pharmacy Med Name: BUSPIRONE HCL 10MG TABS] Medication started: 01/23/2019 Last ordered by MARINO RUBIO: 08/27/2020 (273 days ago) QTY: 60, Refills: 3, Sig: take 1 tablet by mouth two times a day. (changed but equivalent) -> This medication was discontinued on 12/17/2020 by KG STRATTON -> Refill x 12 months, qty: 180, refills: 3 (until due for an office visit) Last qualifying visit: 04/02/2021 (with MARINO RUBIO) Next scheduled visit: None Powered by GRID by Blok[employer], Reference: [id number], 05/27/2021 7:49:22 AM CDT, Rod:KEVIN MARIBEL ([id number]) documented in this encounter Plan of Treatment Not on filedocumented as of this encounter Visit Diagnoses Not on filedocumented in this encounter Care Teams Digital Marketing Manager Relationship Specialty Start Date End Date Marino Rubio PA-C PCP - General Physician Egg Candler 07/18/19 [address] [place] [address] documented as of this encounter
--- OUTSIDE RECORDS SUMMARY | 2022-04-29 16:38 | XMS_ITS | Encounter Summary ---
:1985 Author Organization [facility] Address [address] [address] Care Team Providers Name Role Phone Marino Rubio PA-C Primary Care Provider Reason for Visit Reason Comments Refill propranolol (INDERALLA) 60 M G 24 hour release capsule [Pharmacy Med Name: PROPRANOLOL HCL ER 60MG CP24 ] Encounter Details Date Type Department Care Team Description 05/27/2021 Refill [place] [id number] [place] [address] Marino Rubio R efill (propranolol Medicine CHEMO (INDERALLA) 60 MG [address] hour release capsule [place], [place] [address] [Pharmacy Med Name: [id number] PROPRANOLOL HCL ER 60MG [phone] CP24]) Social History Tobacco Use Types Packs/Day Years [...] encounter Nursing Notes Ena Campa RN - 05/27/2021 11:51 AM CDT Renewed medication per medication refill protocol. Requested Prescriptions Pending Prescriptions Disp Refills propranolol (INDERALLA) 60 MG 24 hour release capsule [Pharmacy Med Name: PROPRANOLOL HCL ER 60MG CP24] 90 Capsule 3 Sig: TAKE ONE CAPSULE BY MOUTH ONCE DAILY Interface, Out Verified Person Prov Query - 05/27/2021 7:49 AM CDT propranolol (INDERALLA) 60 MG 24 hour release capsule [Pharmacy Med Name: PROPRANOLOL HCL ER 60MG CP24] Medication started: 09/20/2019 Last ordered by MARINO RUBIO: 07/10/2020 (321 days ago) QTY: 90, Refills: 3, Sig: take 1 capsule by mouth daily. (changed but equivalent) -> Refill x 12 months, qty: 90, refills: 3 (until due for an office visit) Last qualifying visit: 04/02/2021 (with MARINO RUBIO) Next scheduled visit: None Powered by Daegis by [employer], Reference: [id number], 05/27/2021 7:49:21 AM CDT, Pool:[place]LL ([id number]) documented in this encounter Plan of Treatment Not on filedocumented as of this encounter Visit Diagnoses Diagnosis Anxiety (HRC) Anxiety state, unspecified documented in this encounter Care Teams Jack [employer] All Trades Relationship Specialty Start Date End Date Marino Rubio PA-C PCP - General Physician Bomb Squad Officer 07/18/[address] [place] [address] documented as of this encounter
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
--- OUTSIDE RECORDS SUMMARY | 2022-04-29 16:38 | XMS_ITS | Encounter Summary ---
:1985 Author Organization [facility], Address [address], [place] [address] Care Team Providers Name Role Phone Marino Rubio PA-C Primary Care Provider Reason for Visit Reason Comments LAB RESULTS Encounter Details Date Type Department Care Team Description 04/05/2021 Telephone Specialty [facility] [address] Neurology Diann Mckeon, NEUROPATHOLOGIST RESULTS [address] [place], [place] [id number] Social History Tobacco Use Types Packs/Day Years [...] documented as of this encounter Nursing Notes Diann Mckeon, RN - 04/05/2021 2:28 PM CDT ----- Message from Irvin Menezes DO sent at 04/05/2021 1:10 PM CDT ----- Your labs so far show an elevated DINESH, which can be a marker of inflammatory or immune conditions. Iwould like to repeat this lab as well as add some clarifying lab work before proceeding further. We will have the orders in the system for you to get them drawn. If any questions please call! Sent this to him, need DINESH and VARSHA drawn. Thanks! documented in this encounter Plan of Treatment Not on filedocumented as of this encounter Results Extractable Nuclear Antigen Antibodies (04/06/2021 12:25 PM CDT) athologist Signature THOMPSON/BUILD MANAGER 3 04/08/2021 [facility] (VARSHA) Ab, IGG 2:09 PM CDT LABORATORIES Comment: INTERPRETIVE INFORMATION: Thompson/BUILD MANAGER (VARSHA ) Antibody, IgG ??19 Units or Less ............. Negati ve ??20 to 39 Units ............... Weak P ositive ??40 to 80 Units ............... Modera te Positive ??81 Units or greater .......... Strong Positive Thompson/BUILD MANAGER antibodies are frequently seen in patients with mixed connective tissue disease (MCTD) and are also associated with other systemic autoimmune rheumatic dise ases (SARDs) such as systemic lupus erythematosus (SLE), syst emic sclerosis, and myositis. Antibodies targeting the Thompson /BUILD MANAGER antigenic complex also recognize Thompson antigens, therefore , the Thompson antibody response must be considered when interpr eting these results. Performed By: [facility] [address] [place] [address] Correctional Sub[employer] Abuse Counselor: Rachel Morrison MD VARSHA To Thompson (Sm) 0 0 - 40 AU/mL 04/08/2021 2:09 PM CDT [facility] LABORATOR[facility] Antibody Comment: INTERPRETIVE INFORMATION: Thompson (VARSHA) An tibody, IgG ??29 AU/mL or Less ............. Negati ve ??30 - 40 AU/mL ................ Equivo mariel ??41 AU/mL or Greater .......... Positi ve Thompson antibody is highly specific (great er than 90 percent) for systemic lupus erythematosus (SLE) but o nly occurs in 30-35 percent of SLE cases. The presence of an tibodies to Thompson has variable associations with SLE clinical manifestations. SSA -52 (RO52) ANTIBODY, 2 0 - 40 AU/mL 2:09 PM CDT [facility] IGG (VARSHA) Comment: INTERPRETIVE INFORMATION: SSA-52 (Ro52) (VARSHA) Antibody, IgG ??29 AU/mL or Less ............. Negati ve ??30 - 40 AU/mL ................ Equivo mariel ??41 AU/mL or Greater .......... Positi ve SSA-52 (Ro52) and/or SSA-60 (Ro60) antib odies are associated with a diagnosis of Sjogren syndrome, systemi c lupus erythematosus (SLE), and systemic sclerosis. SSA-52 an tibody overlaps significantly with the major SSc-related antibodies. SSA-52 (Ro52) antibody occurs frequently in patients w ith inflammatory myopathies, often in the presence of int erstitial lung disease. SSB (La) Antibody, IgG 0 0 - 40 AU/mL 04/08/2021 2:0 9 PM CDT [facility] (VARSHA) Comment: INTERPRETIVE INFORMATION: SSB (La) (VARSHA) Ab, IgG ??29 AU/mL or Less ............. Negati ve ??30 - 40 AU/mL ................ Equivo mariel ??41 AU/mL or Greater .......... Positi ve SSB (La) antibody is seen in 50-60% of S jogren syndrome cases and is specific if it is the only VARSHA antibo dy present. 15-25% of patients with systemic lupus erythematos us (SLE) and 5-10% of patients with progressive systemic scler osis (PSS) also have this antibody. SSA-60 (RO60) ANTIBODY, 0 0 - 40 AU/mL 04/08/2021 2:09 PM CDT [facility] (VARSHA) Comment: REFERENCE INTERVAL: SSA-60 (Ro60) (VARSHA) Antibody, IgG ??29 AU/mL or Less ............. Negati ve ??30 - 40 AU/mL ................ Equivo mariel ??41 AU/mL or Greater .......... Positi ve Specimen Anatomical Collection Method / Collection Time Recei meg Time (Source) Location / Volume Laterality Blood Venipuncture / 04/06/2021 12:25 1 Unknown PM CDT 12:31 PM CDT Irvin Menezes DO LAB_1 Performing Organization Address City/[facility] Phon e Number [facility] [address] [place], [place] [id number] (ABNORMAL) Anti-Nuclear Antibody Titer by Immunofluorescent Antibody (IFA) and Pattern (04/06/2021 12:25 PM CDT) [facility] Method Time Signature DINESH Titer >=1:640 (A) <1:80 04/08/2021 [facility] 10:55 AM CDT LABORATORY DINESH Pattern Nucleolar 04/08/2021 [facility] 10:55 AM CDT LABORATORY Comment: This is a test that requires in terpretation by your provider and does not necessarily indicate that you have a spe cific disease. DINESH Interpretation Positive (A) Negative 04/08/2021 10:5 5 AM [facility] CDT Specimen Anatomical Collection Method / Collection Time Recei meg Time (Source) Location / Volume Laterality Blood Venipuncture / 04/06/2021 12:25 1 Unknown PM CDT 12:31 PM CDT Irvinmicah Menezes DO LAB_1 Performing Organization Address City/[facility] Phon e Number [facility] [address] [place] [address] documented in this encounter Visit Diagnoses Diagnosis HIV infection, unspecified symptom statu s (HRC) - Primary Numbness and tingling of both upper extr emities Positive DINESH (antinuclear antibody) Other and unspecified nonspecific immuno logical findings documented in this encounter Care Teams Guard Entrance Registrar Relationship Specialty Start Date End Date Marino Rubio PA-C PCP - General Physician Water Conservationist 07/18/19 [address] [place] [address] documented as of this encounter
--- OUTSIDE RECORDS SUMMARY | 2022-04-29 16:38 | XMS_ITS | Encounter Summary ---
:1985 Author Organization [facility] Address [address], [place] [address] Care Team Providers Name Role Phone Marino Rubio PA-C Primary Care Provider Encounter Details Date Type Department Care Team Description 04/06/2021 Lab Visit [facility] Numbness and tingling of bot h upper extremities; [address] [facility] DINESH (antinuclear an tibody) [place], [place] [address] Social History Tobacco Use [...] Procedure Name Priority Date/Time Associated Comments Diagnosis EXTRACTABLE NUCLEAR Routine 04/06/2021 12:25 Numbness and Resu lts for this ANTIGEN ANTIBODIES PM CDT tingling of both proce dure are in upper extremitie s the results Positive DINESH section. (antinuclear antibody) DINESH, QUANT (TITER) Routine 04/06/2021 12:25 Numbness and Resul ts for this PM CDT tingling of both procedure a re in upper extremitie s the results Positive DINESH section. (antinuclear antibody) documented in this encounter Results Extractable Nuclear Antigen Antibodies (04/06/2021 12:25 PM CDT) athologist Signature THOMPSON/TELEVISION MAINTENANCE MAN 3 04/08/2021 [facility] (VARSHA) Ab, IGG 2:09 PM CDT LABORATORIES Comment: INTERPRETIVE INFORMATION: Thompson/TELEVISION MAINTENANCE MAN (VARSHA ) Antibody, IgG ??19 Units or Less ............. Negati ve ??20 to 39 Units ............... Weak P ositive ??40 to 80 Units ............... Modera te Positive ??81 Units or greater .......... Strong Positive Thompson/TELEVISION MAINTENANCE MAN antibodies are frequently seen in patients with mixed connective tissue disease (MCTD) and are also associated with other systemic autoimmune rheumatic dise ases (SARDs) such as systemic lupus erythematosus (SLE), syst emic sclerosis, and myositis. Antibodies targeting the Thompson /TELEVISION MAINTENANCE MAN antigenic complex also recognize Thompson antigens, therefore , the Thompson antibody response must be considered when interpr eting these results. Performed By: [facility] [address] [place] [address] Skiing Teacher: Rachel Morrison MD VARSHA To Thompson (Sm) 0 0 - 40 AU/mL 04/08/2021 2:09 PM CDT [facility] Antibody Comment: INTERPRETIVE INFORMATION: Thompson (VARSHA) An [...] 0 - 40 AU/mL 2:09 PM CDT [facility] IGG (VARSHA) Comment: INTERPRETIVE INFORMATION: SSA-52 (Ro52) [...] 40 AU/mL 04/08/2021 2:0 9 PM CDT [facility] (VARSHA) Comment: INTERPRETIVE INFORMATION: SSB (La) (VARSHA) [...] - 40 AU/mL 04/08/2021 2:09 PM CDT [facility] IGG (VARSHA) Comment: REFERENCE INTERVAL: SSA-60 (Ro60) [...] Irvin Menezes DO LAB_1 Performing Organization Address City/State/ZIP Code Phon e Number [facility] [address] [place], [place] [phone] (ABNORMAL) Anti-Nuclear Antibody Titer by Immunofluorescent Antibody (IFA) and Pattern (04/06/2021 12:25 PM CDT) [facility] Method Time Signature DINESH Titer >=1:640 (A) <1:80 04/08/2021 [facility] 10:55 AM CDT [facility] DINESH Pattern Nucleolar 04/08/2021 [facility] 10:55 AM CDT [facility] Comment: This is a test that requires in terpretation by your provider and does not necessarily indicate that you have a spe cific disease. DINESH Interpretation Positive (A) Negative 04/08/2021 10:5 5 AM [facility] CDT Specimen Anatomical Collection Method / Collection Time Recei meg Time (Source) Location / Volume Laterality Blood Venipuncture / 04/06/2021 12:25 1 Unknown PM CDT 12:31 PM CDT Irvin Menezes DO LAB_1 Performing Organization Address City/State/ZIP Code Phon e Number [facility] [address] [place] [address] documented in this encounter Visit Diagnoses Diagnosis Numbness and tingling of both upper extr emities Positive DINESH (antinuclear antibody) Other and unspecified nonspecific immuno logical findings documented in this encounter Care Teams Fine Grade Operator Relationship Specialty Start Date End Date Marino Rubio PA-C PCP - General Physician Manager Demand 07/18/19 [address] [place] [address] documented as of this encounter
--- OUTSIDE RECORDS SUMMARY | 2022-04-29 16:38 | XMS_ITS | Encounter Summary ---
:1985 Author Organization [facility] Address [address] [address] Care Team Providers Name Role Phone Marino Rubio PA-C Primary Care Provider Reason for Visit Reason Comments Prior Authorization For Medication DENIED Encounter Details Date Type Department Care Team Description 10/01/2020 Telephone [place] [id number] [place] [address] Marino Rubio P rior Authorization For Medicine CHEMO Medication (DENIED) [address] [facility] [address] [place] [address] [phone] Social History Tobacco Use Types Packs/Day Years [...] documented as of this encounter Nursing Notes Shanice Miller CMA - 10/01/2020 1:10 PM CST Spoke to patient, read message, patient has no questions. BRAKEMAN Marino Rubio PA-C - 10/01/2020 12:39 PM CST This is something he should use GoodRx for as insurance is not likely to cover BRAKEMAN Latha Gayle - 10/01/2020 12:03 PM CST Tadalafil 20mg and Omeprazole 20mg are both denied for coverage through PA process. Sending message to PCP to see if something else should be prescribed or just go over the counter with using Good RX for discount. BRAKEMAN documented in this encounter Plan of Treatment Not on filedocumented as of this encounter Visit Diagnoses Not on filedocumented in this encounter Care Teams Director Of Corporate Communications Relationship Specialty Start Date End Date Marino Rubio PA-C PCP - General Physician Sheet Tailer 07/18/19 [address] [place] [address] documented as of this encounter
--- OUTSIDE RECORDS SUMMARY | 2022-04-29 16:38 | XMS_ITS | Encounter Summary ---
:1985 Author Organization [facility] Address [address], [place] [address] Care Team Providers Name Role Phone Marino Rubio PA-C Primary Care Provider Reason for Visit Reason Onset Date Comments ERRONEOUS ENTRY 09/30/2020 Encounter Details Date Type Department Care Team Description 09/30/2020 Refill [place] [address] [facility] Chetan Rubio PA-C ERRONEOUS ENTRY [facility] [address] [facility] [address] [place] [address] [place] [address] [phone] Social History Tobacco Use Types Packs/Day Years [...] documented as of this encounter Nursing Notes Pat Rivera - 09/30/2020 3:14 PM CST LATION WORKER documented in this encounter Plan of Treatment Not on filedocumented as of this encounter Visit Diagnoses Not on filedocumented in this encounter Care Teams Business Ethics Professor Relationship Specialty Start Date End Date Marino Rubio PA-C PCP - General Physician Auto Research Engineer 07/18/19 [address] [place] [address] documented as of this encounter
--- OUTSIDE RECORDS SUMMARY | 2022-04-29 16:38 | XMS_ITS | Encounter Summary ---
:1985 Author Organization [facility] Address [address] [address] Care Team Providers Name Role Phone Marino Rubio PA-C Primary Care Provider Reason for Referral Medication Prior Authorization - Denied Specialty Diagnoses / Procedures Referred By Contact Refer red To Contact Diagnoses Mild intermittent asthma without complication (HRC) Marino Rubio PA-C [address] [place] [address] Referral ID Status Reason Start Date Expiration Date Visits Requ ested Visits Authorized [id number] Denied 1 1 Reason for Visit Reason Onset Date Comments Refill 05/01/2021 fluticasone-salmeter ol (ADVAIR) 250-50 MCG/DOSE diskus inhaler Encounter Details Date Type Department Care Team Description 05/01/2021 Refill [place] [address] Family Marino Rubio R efill Medicine CHEMO (fluticasone-salmeterol [address] [facility] [address] (ADVAIR) 250-50 MCG/DOSE [place], [place] [address] diskus inhaler) [address] [phone] Social History Tobacco Use Types Packs/Day Years [...] documented as of this encounter Nursing Notes Deirdre Latif - 05/04/2021 12:15 PM CDT fluticasone-salmeterol (ADVAIR) 250-50 MCG/DOSE diskus inhaler is denied. Patient must try and fail ALL preferred alternatives. Preferred alternatives include: -Beclomethasone dipropionate (Qvar) -Budesonide (Pulmicort) -Fluticasone propionate (Flovent HFA) -Mometasone (Asmanex Twisthaler) To Appeal 1. Click Appeal under the more button on the toolbar 2. Enter any relevant/helpful information in the Note to Payer box 3. Click Accept To Change Medication 1. Click Change Med under the more button on the toolbar 2. Order new medication 3. Click ePA Assistance Quick Action to document 4. Select Provider Changed Med option 5. Route to: your site DA If you want the patient to Pay [id number] 1. Click ePA Assistance Quick Action to document 2. Select Out of Pocket option 3. Route to: your site DA Deirdre Latif Deanna Redding RN - 05/01/2021 1:09 PM CDT Rx re-sent to pharmacy per current order by PCP. Requested Prescriptions Signed Prescriptions Disp Refills ??? fluticasone-salmeterol (ADVAIR) 250-50 MCG/DOSE diskus inhaler 1 Each 11 Sig: Inhale 1 Puff two times a day. Authorizing Provider: MARINO RUBIO Ordering User: DEANNA REDDING Interface, Out Surescripts Prov Query - 05/01/2021 12:17 PM CDT fluticasone-salmeterol (ADVAIR) 250-50 MCG/DOSE diskus inhaler Medication started: 04/02/2021 Last ordered by MARINO RUBIO: 04/02/2021 (29 days ago) QTY: 1, Refills: 11, Sig: inhale 1 puff two times a day. (unchanged) -> Refill x 12 months (until due for an office visit) -> Calculate the quantity and number of refills manually. Last qualifying visit: 04/02/2021 (with MARINO RUBIO) Next scheduled visit: None Powered by [employer], Reference: [id number], 05/01/2021 12:17:11 PM CDT, Pool: PN REFILL WIZARD ADMIN ([id number]) Jamel Rudolphphone - 05/01/2021 12:15 PM CDT Medications - Refill Request (able to re-order) Name of prescribing clinician: Marino Rubio PA-C Additional comments (related to the above concern): Pt needs a need a new prescription there due to pharmacy accident deleted off the system For this refill, patient would like it [...] refills) Please route to: Refill Pool (P [phone]) [place] [facility] Pool [place] Patients ONLY (P [phone]) [facility] Refill Pool (P [phone]) documented in this encounter Plan of Treatment Not on filedocumented as of this encounter Visit Diagnoses Diagnosis Mild intermittent asthma without complic ation (HRC) Unspecified asthma documented in this encounter Care Teams Belly Dancer Relationship Specialty Start Date End Date Marino Rubio PA-C PCP - General Physician Card Player 07/18/19 [address] [place] [address] documented as of this encounter
--- OUTSIDE RECORDS SUMMARY | 2022-04-29 16:38 | XMS_ITS | Encounter Summary ---
:1985 Author Organization [facility] Address [address], [place] [address] Care Team Providers Name Role Phone Marino Rubio PA-C Primary Care Provider Reason for Referral Consult/Transfer Care (Routine) - New Request Specialty Diagnoses / Procedures Referred By Contact Refer red To Contact Diagnoses Positive DINESH (antinuclear antibody) Irvin Menezes DO [address] [place], [place] [address] Referral ID Status Reason Start Date Expiration Date Visits V isits Requested Authorized [id number] New Request 04/09/2021 07/09/2022 1 1 Scheduling Instructions Your provider has recommended an appoint ment with [facility]. You may call [phone] to schedule your appoi ntment. We suggest you call your health insurance company about your coverage an d benefits for this appointment. Reason for Visit Reason Comments LAB RESULTS Encounter Details Date Type Department Care Team Description 04/09/2021 Telephone [facility] Diann Mckeon RN LAB RESULTS [address] [place] [address] Social History Tobacco Use Types Packs/Day Years [...] as of this encounter Nursing Notes Diann Mckoen, RN - 04/09/2021 4:11 PM CDT LM for pt with recommendations below. Gave pt scheduling number for rheumatology department. ----- Message from Irvin Menezes DO sent at 04/09/2021 9:02 AM CDT ----- Given continued positive DINESH and pain symptoms let's refer to rheumatology. Thanks! documented in this encounter Plan of Treatment Scheduled Referrals Name Type Priority Associated Diagnoses Order S chedule Rheumatology Referral Routine Positive DINESH Ordered: 2020 Consult-Adults (antinuclear antibody) documented as of this encounter Visit Diagnoses Diagnosis Positive DINESH (antinuclear antibody) - Pr imary Other and unspecified nonspecific immuno logical findings documented in this encounter Care Teams Barrel Cooper Relationship Specialty Start Date End Date Marino Rubio PA-C PCP - General Physician Ribbon Lap Machine Tender 07/18/19 [address] [place] [address] documented as of this encounter
--- OUTSIDE RECORDS SUMMARY | 2022-04-29 16:38 | XMS_ITS | Encounter Summary ---
:1985 Author Organization [facility] Address [address] [address] Care Team Providers Name Role Phone Marino Gardiner PA-C Primary Care Provider Reason for Visit Reason Onset Date Comments Refill Refill 07/10/2020 Encounter Details Date Type Department Care Team Description 07/08/2020 Refill [place] [address] [place] [address] Chetan Gardiner PA-C Refill; Refill Medicine [address] [facility] [address] [place] [address] [place] [address] [phone] Social History Tobacco Use Types Packs/Day Years [...] documented as of this encounter Nursing Notes Ciera Obando RN - 07/09/2020 2:22 PM CST Further Assistance Needed on Refill from Clinician RN reviewed. Medication ordered for short term. Pharmacy requesting 90 day supply and Please advise if longterm supply is appropriate Last qualifying visit: 06/12/2020 (with MARINO GARDINER) ? Next scheduled visit: None ? Review pended order for accuracy and sign if appropriate and Route to Front Line to schedule appointment if needed. Requested Prescriptions Pending Prescriptions Disp Refills ??? buPROPion (WELLBUTRIN XL) 150 MG 24 hour release tablet [Pharmacy Med Name: BUPROPION HCL ER (XL) 150MG TB24] 90 Tablet 3 Sig: TAKE ONE TABLET BY MOUTH ONCE DAILY EMATICS PROFESSOR Interface, Out Surescripts Prov Query - 07/08/2020 7:41 AM CST buPROPion (WELLBUTRIN XL) 150 MG 24 hour release tablet [Pharmacy Med Name: BUPROPION HCL ER (XL) 150MG TB24] Medication started: 04/13/2020 Last ordered by MARINO GARDINER: 06/12/2020 (26 days ago) QTY: 30, Refills: 1, Sig: take 1 tablet bymouth daily. (changed but equivalent) -> This is a re-requested duplicate that should be manually reviewed. -> A duplicate request was processed on 07/06/2020. -> Refill x 12 months, qty: 90, refills: 3 (until due for an office visit) Last qualifying visit: 06/12/2020 (with MARINO GARDINER) Next scheduled visit: None Powered by [facility], Reference: [id number], 07/08/2020 7:41:39 AM MATHEMATICS PROFESSOR, Pool: KEVIN REFILL ([id number]) EMATICS PROFESSOR documented in this encounter Plan of Treatment Not on filedocumented as of this encounter Visit Diagnoses Diagnosis Anxiety Anxiety state, unspecified documented in this encounter Care Teams Bar Steward Relationship Specialty Start Date End Date Marino Gardiner PA-C PCP - General Physician Clinical Lab Technologist 07/18/19 [address] [place] [address] documented as of this encounter
--- OUTSIDE RECORDS SUMMARY | 2022-04-29 16:38 | XMS_ITS | Encounter Summary ---
:1985 Author Organization [email or web address] Address [address] [address] Care Team Providers Name Role Phone Marino Rubio PA-C Primary Care Provider Encounter Details Date Type Department Care Team Description 12/17/2020 Lab Visit [facility] HIV disease (C) [address] [place] [address] Social History Tobacco Use Types Packs/Day Years [...] Associated Comments Diagnosis HIV-1 RNA QUANT Routine 12/17/2020 1:49 PM HIV disease (HRC) R esults for this CDT procedure are i n the results section. CBC AND DIFFERENTIAL Routine 12/17/2020 1:49 PM HIV disease (H RC) Results for this PANEL CDT procedure are i n the results section. CREATININE / GFR Routine 12/17/2020 1:49 PM HIV disease (HRC) Results for this CDT procedure are i n the results section. COMPLETE BLOOD Routine 12/17/2020 1:49 PM HIV disease (HRC) Re sults for this COUNT-W/DIFF CDT procedure are i n the results section. T CELL RATIO Routine 12/17/2020 1:49 PM HIV disease (HRC) Resu lts for this CDT procedure are i n the results section. ALT (SGPT) Routine 12/17/2020 1:49 PM HIV disease (HRC) Resu lts for this CDT procedure are i n the results section. documented in this encounter Results (ABNORMAL) Complete Blood Count-W/Diff (12/17/2020 1:49 PM CDT) Analysis Performed At Patho logist Time Signature WBC 3.5 3.5 - 10.5 12/17/2020 [facility] x10(9)/L 1:58 PM CDT RBC 4.78 4.32 - 12/17/2020 [facility] 5.72 1:58 PM CDT x10(12)/L Hemoglobin 15.7 13.5 - 12/17/2020 [facility] 17.5 g/dL 1:58 PM CDT HCT 44.6 38.8 - 12/17/2020 [facility] 50.0 % 1:58 PM CDT MCV 93.3 80.0 - 12/17/2020 [facility] 100.0 fL 1:58 PM CDT MCH 32.8 27.6 - 12/17/2020 [facility] 33.3 pg 1:58 PM CDT MCHC 35.2 31.5 - 12/17/2020 [facility] 35.2 g/dL 1:58 PM CDT RDW 11.5 (L) 11.9 - 12/17/2020 [facility] 15.5 % 1:58 PM CDT Platelets 207 150 - 450 12/17/2020 [facility] x10(9)/L 1:58 PM CDT Neutrophil 1.9 1.7 - 7.0 12/17/2020 [facility] Absolute 10(9)/L 1:58 PM CDT Lymphocyte 1.2 1.0 - 4.8 12/17/2020 [facility] Absolute 10(9)/L 1:58 PM CDT Monocytes 0.4 0.2 - 0.9 12/17/2020 [facility] Absolute 10(9)/L 1:58 PM CDT Eosinophil 0.1 0.0 - 0.5 12/17/2020 [facility] Absolute 10(9)/L 1:58 PM CDT Basophil 0.0 0.0 - 0.3 12/17/2020 [facility] Absolute 10(9)/L 1:58 PM CDT Immature Gran % 0.0 0.0 - 0.5 12/17/2020 [facility] % 1:58 PM CDT Specimen Anatomical Collection Method / Collection Time Recei meg Time (Source) Location / Volume Laterality Blood Venipuncture / 12/17/2020 1:49 12/17/2020 1:49 Unknown PM CDT PM CDT Pat Mishra MD LAB_1 Performing Organization Address City/State/ZIP Code Phon e Number [facility] [address] [place] [phone] (ABNORMAL) T Cell Ratio (12/17/2020 1:49 PM CDT) athologist Signature CD3 (T Cells) 83.9 62.1 - 12/18/2020 [facility] % 85.0 % 10:40 AM [facility] CD3 (T Cells) 961 500-2,544 12/18/2020 [facility] Absolute /UL 10:40 AM [facility] CD3/CD4 (T 27.8 (L) 31.6 - 12/18/2020 [facility] [place] Cells) 65.7 % 10:40 AM [facility] % CD3/CD4 (T 319 (L) 337-1,687 12/18/2020 [facility] [place] Cells) /UL 10:40 AM [facility] Absolute CD3/CD8 (T 52.3 (H) 10.0 - 12/18/2020 [facility] Suppressor/Cyt 40.0 % 10:40 AM [facility] otoxic Cells) % CD3/CD8 (T 599 140 - 907 12/18/2020 [facility] Suppressor/Cyt /UL 10:40 AM [facility] otoxic Cells) Absolute CD4/CD8 Ratio 0.5 (L) 0.8 - 3.7 12/18/2020 [facility] 10:40 AM [facility] Specimen Anatomical Collection Method / Collection Time Recei meg Time (Source) Location / Volume Laterality Blood Venipuncture / 12/17/2020 1:49 12/17/2020 1:49 Unknown PM CDT PM CDT Pat Mishra MD LAB_1 Performing Organization Address City/State/ZIP Code Phon e Number [address] [address] (ABNORMAL) HIV-1 RNA Quant by TMA (12/17/2020 1:49 PM CDT) Patholo gist Method Time Signature HIV Interp Detected Not 12/18/2020 [facility] (A) Detected 12:47 PM [facility] CDT HIV Copies <30 <30 12/18/2020 [facility] per/ml copies/mL 12:47 PM [facility] LAB CDT HIV Log <1.47 <1.47 log 12/18/2020 [facility] Copies/ml copies/mL 12:47 PM [facility]TRAL LAB CDT Specimen Anatomical Collection Method / Collection Time Recei meg Time (Source) Location / Volume Laterality Blood Venipuncture / 12/17/2020 1:49 12/17/2020 1:49 Unknown PM CDT PM CDT Narrative [facility] - 12/18/2020 12:47 PM CDT Test performed by General Utility Maintenance Repairer Mediated Amplification (TMA). Pat Mishra MD LAB_1 Performing Organization Address City/[facility]/ZIP Code Phon e Number [facility] [address] [address] Creatinine / GFR (12/17/2020 1:49 PM CDT) P athologist Signature Creatinine 0.80 0.73 - 12/17/2020 [facility] 1.18 mg/dL 5:41 PM CDT LABORATORY GFR, Estimated >60 >60 12/17/2020 [facility] mL/min/1.7 5:41 PM CDT LABORATORY 3m2 Specimen Anatomical Collection Method / Collection Time Recei meg Time (Source) Location / Volume Laterality Blood Venipuncture / 12/17/2020 1:49 12/17/2020 1:49 Unknown PM CDT PM CDT Pat Mishra MD LAB_1 Performing Organization Address City/State/ZIP Code Phon e Number [facility] [address] [place] [address] ALT (SGPT) (12/17/2020 1:49 PM CDT) athologist Signature ALT (SGPT) 27 0 - 55 U/L 12/17/2020 [facility] 5:41 PM CDT LABORATORY Specimen Anatomical Collection Method / Collection Time Recei meg Time (Source) Location / Volume Laterality Blood Venipuncture / 12/17/2020 1:49 12/17/2020 1:49 Unknown PM CDT PM CDT Pat Mishra MD LAB_1 Performing Organization Address City/State/ZIP Code Phon e Number [facility] [address] [place] [address] documented in this encounter Visit Diagnoses Diagnosis HIV disease (HRC) Human immunodeficiency virus [HIV] disea se documented in this encounter Care Teams Enterprise Analyst Relationship Specialty Start Date End Date Marino Rubio PA-C PCP - General Physician Rubber Goods Supervisor 07/18/19 [address] [place] [address] documented as of this encounter
--- OUTSIDE RECORDS SUMMARY | 2022-04-29 16:38 | XMS_ITS | Encounter Summary ---
:1985 Author Organization [facility] Address [address], [place] [address] Care Team Providers Name Role Phone Marino Rubio PA-C Primary Care Provider Reason for Referral Consult/Transfer Care (Routine) - Closed Specialty Diagnoses / Procedures Referred By Contact Refer red To Contact Diagnoses Headache, unspecified headache type Marino Rubio PA-C [address] [place] [address] Referral ID Status Reason Start Date Expiration Date Visits Requ ested Visits Authorized [id number] Closed 08/07/2020 11/06/2021 1 1 Scheduling Instructions Your provider has recommended an appoint ment with [facility]. You may call [phone] to schedule your appoi ntment.We suggest you call your health insurance company about your coverage an d benefits for this appointment. MER Reason for Visit Reason Comments Lump groin Injection trigger point inj discuss Encounter Details Date Type Department Care Team Description 08/07/2020 Office Visit [place] [address] Marino Rubio, Headache , unspecified headache type (Primary Dx); Family Medicine CHEMO Anxiety; [address] [address] [facility] [place] [address] [phone] Social History Tobacco Use Types Packs/Day Years [...] Sign Reading Time Taken Comments Blood Pressure 136/86 08/07/2020 11:48 AM DELIMER Pulse 80 08/07/2020 11:48 AM DELIMER Temperature - - Respiratory Rate 16 08/07/2020 11:48 AM DELIMER Oxygen Saturation - - Inhaled Oxygen Concentration - - Weight 72.6 kg (160 lb) 08/07/2020 11:48 AM DELIMER Height 171.5 cm (5' 7.5) 08/07/2020 11:48 AM DELIMER Body Mass Index 24.69 08/07/2020 11:48 AM DELIMER documented in this encounter Patient Instructions Patient InstructionsMarino Rubio PA-C - 08/07/2020 11:40 AM CST Plan: 1). For headaches: Referral to neurology to discuss Botox options. -Can consider repeating trigger point injections in a month or so. 2). For anxiety: Continue Bupropion 300mg XL daily for now as long as well tolerated. 3). Follow up with any other acute issues or concerns. MER documented in this encounter Progress Notes Marino Rubio PA-C - 08/07/2020 11:40 AM CST Chief Complaint Patient presents with ??? Lump groin ??? Injection trigger point inj discuss History of Present Illness: Fernie Marroquin is a 34 y.o. male who presents with the followin). Headaches: Has responded well with occipital trigger point injections in the past, with headachegenerally more related to tension and M/S issues. Last injection was 06/12/2020. Did get relief but admits has been under a lot more stress with personal issue as well as work. 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 When he was in [place] had gotten Botox injections for headaches which seemed to work well. Has not done since moving back to [place]. Does get Botox injections for cosmetic reasons. Discussed referral to neurology for evaluation. Would try to hold off on repeating trigger point injection currently but could probably repeat in about a month. 2). Anxiety: Currently on Bupropion 300mg XL daily. Had been on 150mg XL and discussed increasing atvisit on 06/12/2020. Over the holidays had issues with increased anxiety/stress primarily with his dog having a serious injury. At that time he did increase to the 300mg XL dose which seems to be working well. Tolerates increased dose overall. Continues to use Trazodone for sleep. Is also on Propranolol 60mg XR daily for anxiety and for headaches. 3). Scrotal lesion: Has had concerning area on scrotum. Appears consistent with clogged pore. No surrounding redness, or testicular masses. Review of Systems: Constitutional: No fevers, chills, fatigue CHEST: No cough or breathing difficulty HEART: No chest pain, no edema. ABD: No abdominal pain, nausea, vomiting or diarrhea. : Positive for scrotal lesion. M/S: No back pain, joint pain or swelling, no muscle pain. NEURO: Positive for headaches. No dizziness, weakness SKIN: No rashes or itching, no worrisome skin lesions. PSYCH: Positive for anxiety, no significant depression, some sleep difficulties. No suicidal thoughts. Past Medical History: Reviewed and updated in medical record at visit Past Surgical History: Reviewed and updated in medical record at visit Family History: Reviewed and updated in medical record at visit Medications: Reviewed and reconciled in medical record at visit. Allergies: Reviewed and updated in medical record at visit. Physical Exam: Vitals: 08/07/20 1148 BP: 136/86 Pulse: 80 Resp: 16 GEN: Alert, oriented, well nourished/hydrated in NAD EYES: PEERL, EOMI CHEST: Normal effort, CTA. HEART: RRR, No audible murmur, rub or gallop. SKIN: Warm and dry. Exam of scrotum with small lesion consistent with likely clogged poor. No other scrotal masses. M/S: No joint swelling or redness. NEURO: CN 2-12 intact, non-focal exam PSYCH: Alert & oriented. Normal affect. Normal speech pattern, normal interaction. Insight good. Diagnosis: Encounter Diagnoses Name Primary? Anxiety (HRC) Yes ??? Persistent depressive disorder (HRC) ??? Headache, unspecified headache type Plan: 1). For headaches: Referral to neurology to discuss Botox options. -Can consider repeating trigger point injections in a month or so. 2). For anxiety: Continue Bupropion 300mg XL daily for now as long as well tolerated. 3). Follow up with any other acute issues or concerns. Orders Placed This Encounter ??? PPSV23 (PNEUMOVAX) ??? Neurology Consult-Adults ??? buPROPion (WELLBUTRIN XL) 300 MG 24 hour release tablet MER documented in this encounter Plan of Treatment Scheduled Referrals Name Type Priority Associated Diagnoses Order S [facility] Neurology Referral Routine Headache, unspecified Ordere d: 08/07/2020 Consult-Adults headache type documented as of this encounter Visit Diagnoses Diagnosis Headache, unspecified headache type - Pr imary Anxiety (HRC) Anxiety state, unspecified Scrotal skin lesion Unspecified disorder of male genital org ans documented in this encounter Care Teams Junior Java Developer Relationship Specialty Start Date End Date Marino Rubio PA-C PCP - General Physician Crisis Nurse 07/18/19 [address] [place] [address] documented as of this encounter
--- OUTSIDE RECORDS SUMMARY | 2022-04-29 16:38 | XMS_ITS | Encounter Summary ---
:[address] [facility] Address [address], [place] [address] Care Team Providers Name Role Phone Marino Rubio PA-C Primary Care Provider Reason for Visit Reason Comments HAND PAIN bilateral Procedure/Equipment (Routine) - Closed Specialty Diagnoses / Procedures Referred By Contact Refer red To Contact Diagnoses Paresthesia Pain in both wrists Pain in both upper extremities Bilateral carpal tunnel syndrome Marino Rubio PA-C [address] [place] [address] Referral ID Status Reason Start Date Expiration Date Visits Requ ested Visits Authorized [id number] Closed 12/17/2020 03/18/2022 1 1 Encounter Details Date Type Department Care Team Description 12/31/2020 Procedure Visit [place] Marco Burgess HAND PAIN Rehabilitative Medic ine S, DO (bilateral) [address] [address] [place] [address] [place] [address] Social History Tobacco Use Types Packs/Day Years [...] documented as of this encounter Progress Notes Marco Burgess DO - 12/31/2020 9:00 AM CDT Images from the original note were not included. [facility] [id number] [place] [address] [place] [address] Electromyography and Nerve Conduction Study Report Full Name: Fernie Marroquin Gender: Male Date of : 1985 Visit Date: 12/31/2020 08:49 Age: 35 Years Examining Physician: Marco Burgess DO Referring Physician: Marino Rubio MD Height: 5 feet 7 inch Weight: 149 lbs History: Fernie Marroquin presents for electrodiagnostic evaluation of Hand, elbow, wrist , shoulder pain. Patient notes that he has been working fairly extensive hours during the pandemic. He has been working from home and reports that his the ergonomics of his home workstation are not as ideal as his office. He reports that now he has been experiencing wrist pain, elbow pain, shoulder pain as well as some hand pain more significantly on the right than on the left. He notes in the morning he has minimal symptoms if any as his work day goes on he notes more significant pain and discomfort. At times he will note some numbness in digits 1-2 more on the right than on the left. 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 Sleep is disrupted by his symptoms but more due to pain rather than numbness. Physical Examination: Vital Signs: There were no vitals taken for this visit. General: Well-developed, well-nourished individual in no acute distress. CV: Warm well-perfused extremities, 2+ Radial pulses bilaterally Strength: Left Right Shoulder abduction 5 5 Elbow flexion 5 5 Elbow extension 5 5 Wrist extension 5 5 FDIM 4+ 4+ FPL 5 5 APB 5 5 Reflexes: 2+ bilateral biceps, brachioradialis, triceps. Sensation: Somewhat diminished light touch sensation throughout the right upper extremity when compared to the left. Normal light touch sensation throughout the left upper extremity MSK: Bilaterally negative Phalen's, bilaterally negative Tinel's, bilaterally negative Spurling's Summary The motor conduction test was normal in all 5 of the tested nerves: L Median - APB, L Ulnar - ADM, RMedian - APB, R Ulnar - ADM, R Ulnar - FDI. o The sensory conduction test was performed on 6 nerve(s). The results were normal in 4 nerve(s): L Ulnar - Digit V (Antidromic), L Median - Digit II (Antidromic), R Median - Digit II (Antidromic), R Ulnar - Digit V (Antidromic). Findings were unremarkable in 2 nerve(s): L Median, Ulnar - Transcarpal c omparison, R Median, Ulnar - Transcarpal comparison. o The needle EMG study was normal in all 6 tested muscles: R. First dorsal interosseous, R. Flexor carpi radialis, R. Pronator teres, R. Biceps brachii, R. Triceps brachii, R. Deltoid. Interpretation: Normal study: 1. There is no electrophysiologic evidence of median neuropathy in the bilateral upper extremities. 2. No significant abnormalities were noted ulnar nerve studies in the bilateral upper extremities. Interestingly patient was noted to have FDIM weakness bilaterally. No significant conduction slowing across the elbows. 3. No significant abnormalities noted on EMG of the right upper extremity. 4. Consider referral to occupational therapy for management hand weakness and pain Marco Burgess, DO [facility] Nerve / Sites Rec. Site Onset Lat Peak Lat PP Amp Segments Distance Lat diff ms ms ??V cm ms L Median - Digit II (Antidromic) Wrist Dig II 2.3 2.9 25 Wrist - Dig II 14 L Ulnar - Digit V (Antidromic) Wrist Dig V 2.3 3.0 28 Wrist - Dig V 14 L Median, Ulnar - Transcarpal comparison Median Palm Wrist 1.5 2.0 34 Median Palm - Wrist 8 Ulnar Palm Wrist 1.0 2.0 11 Ulnar Palm - Wrist 8 Median Palm - Ulnar Palm 0.0 R Median - Digit II (Antidromic) Wrist Dig II 2.4 3.1 19 Wrist - Dig II 14 R Ulnar - Digit V (Antidromic) Wrist Dig V 2.2 3.0 23 Wrist - Dig V 14 R Median, Ulnar - Transcarpal comparison Median Palm Wrist 1.4 1.8 48 Median Palm - Wrist 8 Ulnar Palm Wrist 1.6 2.0 9 Ulnar Palm - Wrist 8 Median Palm - Ulnar Palm -0.2 MNC Nerve / Sites Muscle Latency Amplitude Rel Amp Segments Distance Lat Diff Velocity ms mV % cm ms m/s L Median - APB Wrist APB 3.1 10.1 100 Wrist - APB 8 Elbow APB 6.8 9.9 98.1 Elbow - Wrist 22.5 3.6 62 L Ulnar - ADM Wrist ADM 2.3 9.5 100 Wrist - ADM 8 B.Elbow ADM 5.8 8.2 86.6 B.Elbow - Wrist 22 3.5 64 A.Elbow ADM 7.5 7.9 96.6 A.Elbow - B.Elbow 9 1.7 51 A.Elbow - Wrist 5.2 R Median - APB Wrist APB 2.8 9.0 100 Wrist - APB 8 Elbow APB 6.4 8.8 98.3 Elbow - Wrist 22.5 3.6 62 R Ulnar - ADM Wrist ADM 2.3 9.8 100 Wrist - ADM 8 B.Elbow ADM 5.7 9.4 96.3 B.Elbow - Wrist 20.5 3.4 61 A.Elbow ADM 7.4 9.2 98.2 A.Elbow - B.Elbow 10 1.7 60 A.Elbow - Wrist 5.0 R Ulnar - FDI Wrist FDI 3.0 12.6 100 Wrist - FDI B.Elbow FDI 6.4 10.6 83.9 B.Elbow - Wrist 22.5 3.4 67 A.Elbow FDI 8.2 10.5 99.7 A.Elbow - B.Elbow 10 1.8 56 A.Elbow - Wrist 5.1 EMG Summary Table Spontaneous MUAP Recruitment Muscle Nerve Roots IA Fib PSW Fasc Other Amp Dur. PPP Pattern R. First dorsal interosseous Ulnar C8-T1 Normal None None None --- Normal Normal Normal Normal R. Flexor carpi radialis Median C6-C7 Normal None None None --- Normal Normal Normal Normal R. Pronator teres Median C6-C7 Normal None None None --- Normal Normal Normal Normal R. Biceps brachii Musculocutaneous C5-C6 Normal None None None --- Normal Normal Normal Normal R. Triceps brachii Radial C6-C8 Normal None None None --- Normal Normal Normal Normal R. Deltoid Axillary C5-C6 Normal None None None --- Normal Normal Normal Normal documented in this encounter Plan of Treatment Not on filedocumented as of this encounter Visit Diagnoses Diagnosis Pain in both hands - Primary documented in this encounter Care Teams Travel Agency Manager Relationship Specialty Start Date End Date Marino Rubio PA-C PCP - General Physician All Source Analyst 07/18/19 [address] [place] [address] documented as of this encounter
--- OUTSIDE RECORDS SUMMARY | 2022-04-29 16:38 | XMS_ITS | Encounter Summary ---
:1985 Author [facility] Address [address], [place] [address] Care Team Providers Name Role Phone Marino Rubio PA-C Primary Care Provider Reason for Referral Procedure/Equipment (Routine) - Incomplete Specialty Diagnoses / Procedures Referred By Contact Refer red To Contact Diagnoses Paresthesia Pain in both wrists Pain in both upper extremities Bilateral carpal tunnel syndrome Marino Rubio PA-C Procedures Wrist Titan without thumb ([id number]) [address] [place] [address] Referral ID Status Reason Start Date Expiration Date Visits V isits Requested Authorized [id number] Incomplete 12/17/2020 03/18/2022 1 1 Procedure/Equipment (Routine) - Incomplete Specialty Diagnoses / Procedures Referred By Contact Refer red To Contact Diagnoses Paresthesia Pain in both wrists Pain in both upper extremities Bilateral carpal tunnel syndrome Marino Rubio PA-C Procedures Wrist Titan without thumb ([id number]) [address] [place] [address] Referral ID Status Reason Start Date Expiration Date Visits V isits Requested Authorized [id number] Incomplete 12/17/2020 03/18/2022 1 1 Procedure/Equipment (Routine) - Closed Specialty Diagnoses / Procedures Referred By Contact Refer red To Contact Diagnoses Paresthesia Pain in both wrists Pain in both upper extremities Bilateral carpal tunnel syndrome Marino Rubio PA-C [address] [place] [address] Referral ID Status Reason Start Date Expiration Date Visits Requ ested Visits Authorized [id number] Closed 12/17/2020 03/18/2022 1 1 Scheduling Instructions Your provider has recommended an appoint ment with [facility]. You may call [phone] to sche dule your appointment. We suggest you call your health insurance company about your coverage and benefits for this appointment. Reason for Visit Reason Comments WRIST PAIN bilat shoots to shoulder num bness in fingers hard to sleep dexterity worse at end of day x1year Encounter Details Date Type Department Care Team Description 12/17/2020 Office Visit [place] [address] Marino Rubio Paresthe sia (Primary Dx); Family Medicine CHEMO Pain in both wrists; [address] Pain in both upper extremities; [place], [place] Bilateral car pal tunnel syndrome [id number] Social History Tobacco Use Types Packs/Day Years [...] Sign Reading Time Taken Comments Blood Pressure 118/79 12/17/2020 2:20 PM CDT Pulse 73 12/17/2020 2:20 PM CDT Temperature - - Respiratory Rate 16 12/17/2020 2:20 PM CDT Oxygen Saturation - - Inhaled Oxygen Concentration - - Weight 67.6 kg (149 lb) 12/17/2020 2:20 PM CDT Height 171.5 cm (5' 7.5) 12/17/2020 2:20 PM CDT Body Mass Index 22.99 12/17/2020 2:20 PM CDT documented in this encounter Patient Instructions Patient InstructionsMarino Rubio PA-C - 12/17/2020 2:20 PM CDT Plan: 1). Will obtain EMG and base follow-up on results 2). Would wear bilateral wrist splints as much as possible, especially at night. 3). Regular icing and anti-inflammatory such as Naproxen 500mg twice daily prescribed. 4). Follow up with acute worsening of symptoms or any other concerns. documented in this encounter Progress Notes Marino Rubio PA-C - 12/17/2020 2:20 PM CDT Chief Complaint Patient presents with ??? WRIST PAIN bilat shoots to shoulder numbness in fingers hard to sleep dexterity worse at end of day x1year History of present illness: Fernie Marroquin is a 35 y.o. male who presents with worsening issues with bilateral upper extremity pain, mostly in both wrists, along with numbness/tingling in both wrists/fingers. Started about a year ago but is having more continuous symptoms, especially can be bad at night, making it difficult to sleep due to discomfort. Has noted some difficulty gripping things at times. Seems to involve mid 3 fingersprimarily. Pain seems to shoot from the wrists up extremities to level of shoulders. 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 No other acute neurologic symptoms. Review of Systems: Constitutional: No fevers, chills, fatigue CHEST: No cough or breathing difficulty HEART: No chest pain, no edema. ABD: No abdominal pain, nausea, vomiting or diarrhea. 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 NEURO: Positive for numbness/tingling. No headaches, dizziness, weakness SKIN: No rashes or itching, [...] medical record at visit. Physical Exam: Vitals: 12/17/20 1420 BP: 118/79 Pulse: 73 Resp: 16 GEN: Alert, oriented, well nourished/hydrated in NAD EYES: PEERL, EOMI NECK: Supple, normal ROM CHEST: Normal effort, CTA. HEART: RRR, No audible murmur, rub or gallop. ABD: Soft, non-tender. SKIN: Warm and dry without rash M/S: Exam of BUE with no outward swelling, bruising, or deformity. Tender really mostly over both wrists. Has normal ROM and function with flexion and extension of wrists and fingers. Has fairly normalgrip strength at time fo exam and normal strength in BUEs.. NEURO: CN 2-12 intact, non-focal exam PSYCH: Alert and oriented. Normal affect. Discussion: 35 year old male with worsening paresthesias, weakness, loss of police radio dispatcher strength, and increasing pain in BUEs. Findings likely consistent with carpal tunnel syndrome however other causes for symptoms/neuropathies entirely excluded (ie: brachial plexus syndrome, thoracic outlet syndrome, ulnaror radial nerve impingement. Given severity of symptoms feel he would benefit form EMG for evaluation. Diagnosis: Encounter Diagnoses Name Primary? Paresthesia Yes ??? Pain in both wrists ??? Pain in both upper extremities ??? Bilateral carpal tunnel syndrome Plan: 1). Will obtain EMG and base follow-up on results 2). Would wear bilateral wrist splints as much as possible, especially at night. 3). Regular icing and anti-inflammatory such as Naproxen 500mg twice daily prescribed. 4). Follow up with acute worsening of symptoms or any other concerns. Orders Placed This Encounter ??? REHAB--EMG ELECTRICAL NERVE CONDUCTION STUDY (AMB) ??? Wrist Titan without thumb ([id number]) ??? Wrist Titan without thumb ([id number]) ??? naproxen (NAPROSYN) 500 MG tablet documented in this encounter Plan of Treatment Scheduled Referrals Name Type Priority Associated Diagnoses Order S chedule REHAB--EMG ELECTRICAL Referral Routine Paresthesi a Ordered: 12/17/2020 NERVE CONDUCTION STUDY Pain in b oth wrists (AMB) Pain in both upper extremities Bilateral carpal tunnel syndrome documented as of this encounter Visit Diagnoses Diagnosis Paresthesia - Primary Disturbance of skin sensation Pain in both wrists Pain in joint, forearm Pain in both upper extremities Bilateral carpal tunnel syndrome Carpal tunnel syndrome documented in this encounter Care Teams Egg Candler Relationship Specialty Start Date End Date Marino Rubio PA-C PCP - General Physician Cutting Machine Tender Decorative 07/18/19 [address] [place] [address] documented as of this encounter
--- OUTSIDE RECORDS SUMMARY | 2022-04-29 16:38 | XMS_ITS | Encounter Summary ---
:1985 Author Organization [facility] Address [address], [place] [address] Care Team Providers Name Role Phone Marino Rubio PA-C Primary Care Provider Reason for Referral Therapies (Routine) - Closed Specialty Diagnoses / Procedures Referred By Contact Refer red To Contact Diagnoses Numbness and tingling of both upper extremities Irvin Menezes DO [address] [place], [place] [address] Referral ID Status Reason Start Date Expiration Date Visits Requ ested Visits Authorized [id number] Closed 03/23/2021 03/23/2022 1 1 Scheduling Instructions Your provider has recommended an appoint ment with [facility]. You may call [phone] to schedule your a ppointment. We suggest you call your health insurance company about your coverage an d benefits for this appointment. Reason for Visit Reason Comments CONSULT Consult/Transfer Care (Routine) - New Request Specialty Diagnoses / Procedures Referred By Contact Refer red To Contact Diagnoses Paresthesia Marino Rubio PA-C [address] [place] [address] Referral ID Status Reason Start Date Expiration Date Visits V isits Requested Authorized [id number] New Request 02/18/2021 05/20/2022 1 1 Encounter Details Date Type Department Care Team Description 03/23/2021 [facility] [address] Anish Menezes DO Numbness and tingling of both upper extr emities (Primary Dx); Neurology [address] [facility] [place] [id number] [phone] Social History Tobacco Use Types Packs/Day Years [...] as of this encounter Patient Instructions Patient InstructionsnAa Major RN - 03/23/2021 11:00 AM CDT Imaging may require a Prior Authorization through your insurance. This Prior Authorization process is triggered when you schedule the imaging. Please schedule this imaging 14 days from this visit to allow this process to be completed. It may require appeal or more documentation to support medical neces sity. If imaging completed before this appeal we cannot guarantee coverage. documented in this encounter Progress Notes Irvin Menezes DO - 03/23/2021 11:00 AM CDT Images from the original note were not included. NEUROLOGY CONSULTATION - VIDEO VISIT This visit was performed over video via telemedicine due to the COVID-19 pandemic. The patient is agreeable to a video visit. REQUESTING PHYSICIAN: Marino Rubio REASON FOR CONSULTATION: Bilateral upper extremity numbness and pain HISTORY OF PRESENT ILLNESS: 35-year-old male with past medical history of anxiety, migraines, presenting to Neurology for evaluation of bilateral upper extremity pain, numbness and weakness. History obtained from patient and chart. Pt reports he has pain in his bilateral hands extending into the elbows, right>left. Worse in themorning and better with use through the day. The sensation is mainly pain, sometimes fingers go numb/tingling. There was also weakness in the grasp at times to the point of needing to grasp objects with 2 hands. Worst time of it is sleeping as it hurts to lie on either side. He has tried NSAIDs with minimal benefit, he reports that it is not significant enough that he you was wanting to try further pain medications. 12/31/2020 EMG: Interpretation: Normal study: 1. There is no [...] therapy for management hand weakness and pain ?? SOCIAL HISTORY: Social History Tobacco Use ??? Smoking status: Never Smoker ??? Smokeless tobacco: Never Used Vaping Use ??? Vaping Use: Never used Substance Use Topics ??? Alcohol use: Yes Comment: once a week (3-8) ??? Drug use: Never FAMILY HISTORY: Family History Problem Relation Age of Onset ??? Cancer, Prostate Father ??? Hypertension Father ALLERGIES: Allergies Allergen Reactions ??? Cefaclor Unknown, Itching and Rash REVIEW OF SYSTEMS: Constitutional: negative Eyes: negative Respiratory: negative Cardiovascular: negative Gastrointestinal: negative Genitourinary:negative Hematologic/lymphatic: negative Musculoskeletal:see HPI Neurological: see HPI Behavioral/Psych: negative Endocrine: negative PHYSICAL EXAMINATION: Vitals: Estimated body mass index is 22.99 kg/m?? as calculated from the following: Height as of 04/02/21: 1.715 m (5' 7.5). Weight as of 04/02/21: 67.6 kg (149 lb). Constitutional: Well-nourished Respiratory: No distress Neuro: Awake, interactive, follows commands, fluency preserved, gaze midline, no overt nystagmus, nofacial weakness, no involuntary movements LABS: Lab Results Component Value Date/Time WBC 3.5 12/17/2020 01:49 PM RBC 4.78 12/17/2020 01:49 PM HGB 15.7 12/17/2020 01:49 PM HCT 44.6 12/17/2020 01:49 PM MCV 93.3 12/17/2020 01:49 PM MCH 32.8 12/17/2020 01:49 PM MCHC 35.2 12/17/2020 01:49 PM PLTS 207 12/17/2020 01:49 PM RDW 11.5 (L) 12/17/2020 01:49 PM BUN (mg/dL) Date Value 06/12/2020 8 Sodium (mmol/L) Date Value 06/12/2020 140 Potassium (mmol/L) Date Value 06/12/2020 4.4 Chloride (mmol/L) Date Value 06/12/2020 103 Glucose (mg/dL) Date Value 06/12/2020 103 (H) Lab Glucose (mg/dL) Date Value 10/04/2018 101 (H) Creatinine (mg/dL) Date Value 12/17/2020 0.80 Creatinine Serum (mg/dL) Date Value 10/11/2018 0.60 (L) GFR, Estimated (mL/min/1.73m2) Date Value 12/17/2020 >60 Est GFR Am (mL/min/1.73m2) Date Value 10/11/2018 >60 Est GFR Non-Afr Am (mL/min/1.73m2) Date Value 10/11/2018 >60 Calcium (mg/dL) Date Value 06/12/2020 9.7 Anion Gap (mmol/L) Date Value 06/12/2020 10 IMAGING: No brain imaging available ASSESSMENT: 1. Bilateral, right>left upper extremity, distal pain and paresthesias. Etiology TBD, EMG performed showed no significant abnormality. Will assess with structural imaging of the brain and cervical spine, as well as serum lab work. Other etiologies include arthritic versus tendon/MSK pain vs other. RECOMMENDATIONS: -MRI brain, cervical spine -serum lab work -PT referral Thank you for the consultation, please contact me with any questions or concerns. Total time 45 minutes Irvin Menezes DO 03/23/2021 Neurologist [facility] documented in this encounter Plan of Treatment Scheduled Referrals Name Type Priority Associated Diagnoses Order S chedule Physical Therapy Referral Routine Numbness and tingling of both Ordered: 03/23/2021 upper extremities documented as of this encounter Results Rheumatoid Factor (04/02/2021 11:08 AM CDT) Analysis Performed At Patho logist Time Signature Rheumatoid <15 <=30 IU/mL 04/02/2021 [facility] Factor, 4:53 PM CDT LABORATORY Quantitative Specimen Anatomical Collection Method / Collection Time Recei meg Time (Source) Location / Volume Laterality Blood Venipuncture / 04/02/2021 11:08 1 Unknown AM CDT 11:08 AM CDT Irvin Menezes DO LAB_1 Performing Organization Address City/[facility] Phon e Number [facility] [address] [place] [address] Vitamin B6 (8Hr Fast Recommended) (04/02/2021 11:08 AM CDT) athologist Signature Vitamin B6 90.5 20.0 - 04/05/2021 [facility] 125.0 8:25 PM CDT nmol/L Comment: INTERPRETIVE INFORMATION: Vitamin B6 (Py ridoxal 5-Phosphate) Pyridoxal 5'-phosphate measured in a spe cimen collected following an 8-hour or overnight fast accurately i ndicates vitamin B6 nutritional status. Non-fasting specimen concentration reflects recent vitamin intake. This test was developed and its performa nce characteristics determined by [facility]. It has not been cleared or approved by the [place] Food and Drug Adminis tration. This test was performed in a CLIA certified laboratory and is intended for clinical purposes. Performed By: [facility] [address] [place] [address] Cask Maker: Rachel Morrison MD Specimen Anatomical Collection Method / Collection Time Recei meg Time (Source) Location / Volume Laterality Blood Venipuncture / 04/02/2021 11:08 1 Unknown AM CDT 11:08 AM CDT Irvin Menezes LAB_1 Performing Organization Address City/[facility] Phon e Number [facility] [address] [place], [place] [id number] Vitamin B-12 (04/02/2021 11:08 AM CDT) P athologist Signature Vitamin B12 561 927 - 330 04/02/2021 [facility] pg/mL 4:58 PM CDT LABORATORY Specimen Anatomical Collection Method / Collection Time Recei meg Time (Source) Location / Volume Laterality Blood Venipuncture / 04/02/2021 11:08 1 Unknown AM CDT 11:08 AM CDT Irvin Menezes DO LAB_1 Performing Organization Address City/[facility]/ZIP Code Phon e Number [facility] [address] [place] [address] (ABNORMAL) Anti-Nuclear Antibody Titer by Immunofluorescent Antibody (IFA) and Pattern (04/02/2021 11:08 AM CDT) [facility] Method Time Signature DINESH Titer >=1:640 (A) <1:80 04/05/2021 [facility] 10:28 AM CDT LABORATORY DINESH Pattern Nucleolar 04/05/2021 [facility] 10:28 AM CDT LABORATORY Comment: This is a test that requires in terpretation by your provider and does not necessarily indicate that you have a spe cific disease. DINESH Interpretation Positive (A) Negative 04/05/2021 10:2 8 AM [facility] CDT Specimen Anatomical Collection Method / Collection Time Recei meg Time (Source) Location / Volume Laterality Blood Venipuncture / 04/02/2021 11:08 1 Unknown AM CDT 11:08 AM CDT Irvin Menezes DO LAB_1 Performing Organization Address City/[facility] Code Phon e Number [facility] [address] [place] [address] C Reactive Protein (04/02/2021 11:08 AM CDT) athologist Signature C-Reactive <0.5 0.0 - 0.7 04/02/2021 [facility] Protein mg/dL 3:47 PM CDT LABORATORY Specimen Anatomical Collection Method / Collection Time Recei meg Time (Source) Location / Volume Laterality Blood Venipuncture / 04/02/2021 11:08 1 Unknown AM CDT 11:08 AM CDT Irvin Menezes DO LAB_1 Performing Organization Address City/[facility] Phon e Number [facility] [address] [place] [address] Sedimentation Rate (04/02/2021 11:08 AM CDT) Analysis Performed At Patho logist Time Signature Sedimentation Rate 2 0 - 15 04/02/2021 [facility] mm/hr 11:44 AM CDT Specimen Anatomical Collection Method / Collection Time Recei meg Time (Source) Location / Volume Laterality Blood Venipuncture / 04/02/2021 11:08 1 Unknown AM CDT 11:08 AM CDT Irvin Menezes DO LAB_1 Performing Organization Address City/State/ZIP Code Phon e Number [facility] [address] [place] [address] Hemoglobin A1C Glycosylated (04/02/2021 11:08 AM CDT) [facility] Method Time Signature Hemoglobin A1C 5.3 <=5.6 % 04/02/2021 [facility] 8:58 PM CDT [facility] Specimen Anatomical Collection Method / Collection Time Recei meg Time (Source) Location / Volume Laterality Blood Venipuncture / 04/02/2021 11:08 1 Unknown AM CDT 11:08 AM CDT Irvin Menezes DO LAB_1 Performing Organization Address City/[facility]/ZIP Code Phon e Number [facility] [address] [address] TSH (04/02/2021 11:08 AM CDT) P athologist Signature TSH, Sensitive 1.61 0.30 - 04/02/2021 [facility] 4.50 4:58 PM CDT LABORATORY uIU/mL Specimen Anatomical Collection Method / Collection Time Recei meg Time (Source) Location / Volume Laterality Blood Venipuncture / 04/02/2021 11:08 1 Unknown AM CDT 11:08 AM CDT Irvin Menezes DO LAB_1 Performing Organization Address City/State/ZIP Code Phon e Number [facility] [address] [place] [address] documented in this encounter Visit Diagnoses Diagnosis Numbness and tingling of both upper extr emities - Primary Anxiety (HRC) Anxiety state, unspecified documented in this encounter Care Teams Patient Care Specialist Relationship Specialty Start Date End Date Marino Rubio PA-C PCP - General Physician Ventilating Engineer 07/18/19 [address] [place] [address] documented as of this encounter
--- OUTSIDE RECORDS SUMMARY | 2022-04-29 16:38 | XMS_ITS | Encounter Summary ---
:1985 Author [facility] Address [address] [address] Care Team Providers Name Role Phone Marino Rubio PA-C Primary Care Provider Encounter Details Date Type Department Care Team Description 06/12/2020 Lab Visit [facility] Elevated LFTs [address] [place] [address] Social History Tobacco Use Types Packs/Day [...] Name Priority Date/Time Associated Diagnosis Comme nts LIVER PANEL(HEPATIC Routine 06/12/2020 1:45 PM Elevated LFTs R esults for this FUNCTION PANEL) ADOLESCENT COUNSELOR procedure ar e in the results section. BASIC METABOLIC Routine 06/12/2020 1:45 PM Elevated LFTs Resul ts for this PANEL ADOLESCENT COUNSELOR procedure are i n the results section. documented in this encounter Results (ABNORMAL) Basic Metabolic Panel (06/12/2020 1:45 PM ADOLESCENT COUNSELOR) Analysis Performed At Patho logist Time Signature Sodium 140 136 - 145 06/12/2020 [place] mmol/L 9:13 PM ADOLESCENT COUNSELOR LABORATORY Potassium 4.4 3.5 - 5.1 06/12/2020 [place] mmol/L 9:13 PM ADOLESCENT COUNSELOR LABORATORY Chloride 103 98 - 109 06/12/2020 [place] mmol/L 9:13 PM ADOLESCENT COUNSELOR LAB[facility] CO2 27 20 - 29 06/12/2020 [place] mmol/L 9:13 PM [facility]OLESCENT COUNSEL[facility] Anion Gap 10 7 - 16 06/12/2020 [place] mmol/L 9:13 PM ADOLESCENT COUNSELOR LAB[facility] Calcium 9.7 8.4 - 10.4 06/12/2020 [place] mg/dL 9:13 PM ADOLESCENT COUNSEL[facility] BUN 8 7 - 26 06/12/2020 [place] mg/dL 9:13 PM [facility]CENT COUN[facility] Creatinine 0.90 0.73 - 06/12/2020 [place] 1.18 mg/dL 9:13 PM ADOLESCENT COUNSEL[facility] GFR, Estimated >60 >60 06/12/2020 [place] mL/min/1.7 9:13 PM ADOLESCENT COUNSELOR [facility] 3m2 Glucose 103 (H) 70 - 100 06/12/2020 [place] mg/dL 9:13 PM ADOLESCENT COUNSELOR LAB[facility] Comment: The given reference range is fo r the fasting state. Non-fasting reference range for glucose is 70 - 180 mg/dL. Specimen Anatomical Collection Method / Collection Time Recei meg Time (Source) Location / Volume Laterality Blood Venipuncture / 06/12/2020 1:45 06/12/2020 1:45 Unknown PM ADOLESCENT COUNSELOR PM ADOLESCENT COUNSELOR Marino Rubio PA-C LAB_1 Performing Organization Address City/State/ZIP Code Phon e Number [facility] [address] [place] [address] (ABNORMAL) Liver Panel(Hepatic Function Panel) (06/12/2020 1:45 PM ADOLESCENT COUNSELOR) Analysis Performed At Patho logist Time Signature Alkaline 57 40 - 150 06/12/2020 [place] Phosphatase U/L 8:34 PM ADOLESCENT COUNSELOR LAB[facility] Bilirubin, Total 0.6 0.2 - 1.2 06/12/2020 [place] mg/dL 8:34 PM ADOLESCENT COUNSELOR [facility] Bilirubin, 0.2 0.0 - 0.5 06/12/2020 [place] Direct mg/dL 8:34 PM ADOLESCENT COUNSELOR LAB[facility] AST (SGOT) 33 10 - 40 06/12/2020 [place] U/L 8:34 PM [facility]OLESCENT COUNSELOR [facility] ALT (SGPT) 60 (H) 0 - 55 U/L 06/12/2020 [place] 8:34 PM ADOLESCENT COUNSELOR [facility] Protein, Total 7.6 6.4 - 8.3 06/12/2020 [place] g/dL 8:34 PM ADOLESCENT COUNSELOR [facility] Albumin 4.6 3.5 - 5.0 06/12/2020 [place] g/dL 8:34 PM ADOLESCENT COUNSELOR LAB[facility] Specimen Anatomical Collection Method / Collection Time Recei meg Time (Source) Location / Volume Laterality Blood Venipuncture / 06/12/2020 1:45 06/12/2020 1:45 Unknown PM ADOLESCENT COUNSELOR PM ADOLESCENT COUNSELOR Marino Rubio PA-C LAB_1 Performing Organization Address City/State/ZIP Code Phon e Number [facility] [address] [place] [address] documented in this encounter Visit Diagnoses Diagnosis Elevated LFTs Other abnormal blood chemistry documented in this encounter Care Teams Ager Operator Relationship Specialty Start Date End Date Marino Rubio PA-C PCP - General Physician Magazine Designer 07/18/19 [address] [place] [address] documented as of this encounter
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
--- OUTSIDE RECORDS SUMMARY | 2022-04-29 16:38 | XMS_ITS | Encounter Summary ---
:1985 Author Organization [facility] Address [address], [place] [address] Care Team Providers Name Role Phone Marino Rubio PA-C Primary Care Provider Encounter Details Date Type Department Care Team Description 02/05/2021 Immunization [facility] Encounter for Medicine administration of vaccine [id number] (Primary Dx) [place] [address] Social History Tobacco Use Types Packs/Day Years [...] as of this encounter Visit Diagnoses Diagnosis Encounter for administration of vaccine - Primary documented in this encounter Care Teams Concrete Engineer Relationship Specialty Start Date End Date Marino Rubio PA-C PCP - General Physician Multisensor Intelligence Officer 07/18/19 [address] [place] [address] documented as of this encounter
--- OUTSIDE RECORDS SUMMARY | 2022-04-29 16:38 | XMS_ITS | Encounter Summary ---
:1985 Author [facility] Address [address], [place] [address] Care Team Providers Name Role Phone Marino Rubio PA-C Primary Care Provider Encounter Details Date Type Department Care Team Description 09/23/2020 Notes/[place] [address] Marino Rubio, Erectile dysfunction, Family Medicine CHEMO unspecified [facility] [address] [facility] [address] [place] [address] [phone] Social History Tobacco Use Types Packs/Day Years [...] this encounter Nursing Notes Deirdre Latif - 09/23/2020 7:11 PM CST Omeprazole (PRILOSEC) 20mg capsule is denied. Plan pays a maximum of 120 days within 365 days. This is the duration limit set by plan for PPIs. This limit is shared across all PPI medications. If a higher quantity or duration must be used, prescriber must provide the reason via appeal. To Appeal 1. Click Appeal under the more button on the toolbar 2. Enter any relevant/helpful information in the Note to Payer box 3. Click Accept To change medication 1. Click Change Med under the more button on the toolbar 2. Order new medication 3. Click ePA Assistance Quick Action to document 4. Select Provider Changed Med option 5. Route to: your site DA If you want the patient to Pay [id number] 1. Click ePA Assistance Quick Action to document 2. Select Out of Pocket option 3. Route to: your site GLORIA Latif Deirdre Latif - 09/23/2020 7:11 PM CST Tadalafil (CIALIS) 20 MG tablet is excluded from patient's pharmacy benefits and does not allow for an appeal. Next step options are: To Change Medication 1. Click Change Med under more on the toolbar 2. Order new medication 3. Click ePA Assistance Quick Action to document 4. Select Provider Changed Med option 5. Route to: your site DA If you want the patient to Pay Dqy-Tq-Dcheux 1. Click ePA Assistance Quick Action to document 2. Select Out of Pocket option 3. Route to: your site GLORIA Deirdre Bhavya documented in this encounter Plan of Treatment Not on filedocumented as of this encounter Visit Diagnoses Diagnosis Erectile dysfunction, unspecified erecti le dysfunction type documented in this encounter Care Teams Candlemaker Relationship Specialty Start Date End Date Marino Rubio PA-C PCP - General Physician Business Manager [employer] 07/18/19 [address] [place] [address] documented as of this encounter
--- OUTSIDE RECORDS SUMMARY | 2022-04-29 16:38 | XMS_ITS | Encounter Summary ---
:1985 Author Organization [employer] Address [address], [place] [address] Care Team Providers Name Role Phone Marino Rubio PA-C Primary Care Provider Encounter Details Date Type Department Care Team Description 08/07/2020 Lab Visit [facility] HIV disease (HRC) [address] [place] [address] Social History Tobacco Use Types Packs/Day [...] Procedure Name Priority Date/Time Associated Comments Diagnosis TB QUANTIFERON GOLD Routine 08/07/2020 11:42 HIV disease (HRC) Results for this PLUS NIL AM BUTTER LIQUEFIER procedure are i n the results section. HIV-1 RNA QUANT Routine 08/07/2020 11:41 HIV disease (HRC) Res ults for this AM BUTTER LIQUEFIER procedure are i n the results section. CBC AND DIFFERENTIAL Routine 08/07/2020 11:41 HIV disease (HRC ) Results for this PANEL AM BUTTER LIQUEFIER procedure are i n the results section. TB QUANTIFERON GOLD Routine 08/07/2020 11:41 HIV disease (HRC) Results for this PLUS AM BUTTER LIQUEFIER procedure are i n the results section. TB QUANTIFERON GOLD Routine 08/07/2020 11:41 HIV disease (HRC) Results for this PLUS MITOGEN AM BUTTER LIQUEFIER procedure are i n the results section. TB QUANTIFERON GOLD Routine 08/07/2020 11:41 HIV disease (HRC) Results for this PLUS TB2 AM BUTTER LIQUEFIER procedure are i n the results section. TB QUANTIFERON GOLD Routine 08/07/2020 11:41 HIV disease (HRC) Results for this PLUS TB1 AM BUTTER LIQUEFIER procedure are i n the results section. LIPID PANEL AND Routine 08/07/2020 11:41 HIV disease (HRC) Res ults for this DIRECT LDL(IF NEEDED) AM BUTTER LIQUEFIER proced ure are in the results section. CREATININE / GFR Routine 08/07/2020 11:41 HIV disease (HRC) Re sults for this AM BUTTER LIQUEFIER procedure are i n the results section. COMPLETE BLOOD Routine 08/07/2020 11:41 HIV disease (HRC) Resu lts for this COUNT-W/DIFF AM BUTTER LIQUEFIER procedure are i n the results section. HGB A1C Routine 08/07/2020 11:41 HIV disease (HRC) Result s for this AM BUTTER LIQUEFIER procedure are i n the results section. ALT (SGPT) Routine 08/07/2020 11:41 HIV disease (HRC) Result s for this AM BUTTER LIQUEFIER procedure are i n the results section. UA MICRO IF Routine 08/07/2020 11:36 HIV disease (HRC) Result s for this AM BUTTER LIQUEFIER procedure are i n the results section. documented in this encounter Results TB QuantiFERON Gold Plus NIL (08/07/2020 11:42 AM BUTTER LIQUEFIER) [facility] Method Time Signature TB QuantiFERON Negative, M. Negative, M. 08/10/2020 [facility] Gold Plus tuberculosis tuberculosis 11:33 AM LABORATORY Infection NOT Infection NOT BUTTER LIQUEFIER likely likely NIL 0.119 IU/mL 08/10/2020 [facility] 11:33 AM LABORATORY BUTTER LIQUEFIER TB1-NIL 0.03 IU/mL 08/10/2020 [facility] 11:33 AM LABORATORY BUTTER LIQUEFIER TB2-NIL 0.06 IU/mL 08/10/2020 [facility] 11:33 AM LABORATORY BUTTER LIQUEFIER Mitogen-NIL 9.88 IU/mL 08/10/2020 [facility] 11:33 AM LABORATORY BUTTER LIQUEFIER Specimen Anatomical Collection Method / Collection Time Recei meg Time (Source) Location / Volume Laterality Blood Venipuncture / 08/07/2020 11:42 1 Unknown AM BUTTER LIQUEFIER 11:42 AM BUTTER LIQUEFIER Narrative [facility] - 08/10/2020 11:33 AM BUTTER LIQUEFIER Nil ?TB1-Nil ? TB2-Nil ?Mitogen-Nil ??Result ?Interpretation (IU/ml) ??(IU/mL) ? (IU/mL) ?(IU/mL) <=8.0 ? >=0.35 & ? Any ?Any ?Positive ?M. tuberculosis ?>=25% Nil ?infection likely <=8.0 ? Any ?>=0.35 & ? Any ?Positive ?M. tuberculosis ? >=25% Nil ? infection likely <=8.0 ? <0.35 or ? <0.35 or ? >=0.50 ? Negative ?M. tuberculosis ?>=0.35 & ? >=0.35 & ?infection NOT ?<25% Nil ? <25% Nil ?likely <=8.0 ? <0.35 or ? <0.35 or ? <0.50 ? Indeterminate ??M. tuberculosis ?>=0.35 & ? >=0.35 & ?infection cannot ?<25% Nil ? <25% Nil ?be determined >8.0 ?Any ?Any ?Any ? Indeterminate ??M. tuberculosis ? infection cannot ? be determined. Important: Diagnosing or excluding tuber culosis disease, and assessing the probability of LTBI, requires a combination of epidemiological, historical, medical, and diagnostic findings that should be keith en into account when interpreting QFT-Pl us results. See general guidance on the diagnosis and treatment of TB disease and LTBI (https://www.cdc.gov/tb/publications/guidelines/default.htm). The magnitude of the measured IFN-gamma level cannot be correlated to stage or degree of infection, level of immune responsiveness, or likelihood for progression to active disease. A positive TB respons e in persons who are negative to Mitogen is rare, but has been seen in patients with TB disease. This indicates the IFN-gamma response to TB antigens is greater than that to Mitogen, which is possible a s the level of Mitogen does not maximall y stimulate IFN-gamma production by lymphocytes. Pat Mishra MD LAB_1 Performing Organization Address City/State/ZIP Code Phon e Number [facility] [address] [place] [address] (ABNORMAL) Complete Blood Count-W/Diff (08/07/2020 11:41 AM BUTTER LIQUEFIER) Analysis Performed At Patho logist Time Signature WBC 3.5 3.5 - 10.5 08/07/2020 [facility] x10(9)/L 11:45 AM BUTTER LIQUEFIER RBC 4.89 4.32 - 08/07/2020 [facility] 5.72 11:45 AM BUTTER LIQUEFIER x10(12)/L Hemoglobin 16.1 13.5 - 08/07/2020 [facility] 17.5 g/dL 11:45 AM BUTTER LIQUEFIER HCT 45.8 38.8 - 08/07/2020 [facility] 50.0 % 11:45 AM BUTTER LIQUEFIER MCV 93.7 80.0 - 08/07/2020 [facility] 100.0 fL 11:45 AM BUTTER LIQUEFIER MCH 32.9 27.6 - 08/07/2020 [facility] 33.3 pg 11:45 AM BUTTER LIQUEFIER MCHC 35.2 31.5 - 08/07/2020 [facility] 35.2 g/dL 11:45 AM BUTTER LIQUEFIER RDW 11.3 (L) 11.9 - 08/07/2020 [facility] 15.5 % 11:45 AM BUTTER LIQUEFIER Platelets 209 150 - 450 08/07/2020 [facility] x10(9)/L 11:45 AM BUTTER LIQUEFIER Neutrophil 1.9 1.7 - 7.0 08/07/2020 [facility] Absolute 10(9)/L 11:45 AM BUTTER LIQUEFIER Lymphocyte 1.2 1.0 - 4.8 08/07/2020 [facility] Absolute 10(9)/L 11:45 AM BUTTER LIQUEFIER Monocytes 0.4 0.2 - 0.9 08/07/2020 [facility] Absolute 10(9)/L 11:45 AM BUTTER LIQUEFIER Eosinophil 0.1 0.0 - 0.5 08/07/2020 [facility] Absolute 10(9)/L 11:45 AM BUTTER LIQUEFIER Basophil 0.0 0.0 - 0.3 08/07/2020 [facility] Absolute 10(9)/L 11:45 AM BUTTER LIQUEFIER Immature Gran % 0.0 0.0 - 0.5 08/07/2020 [facility] % 11:45 AM BUTTER LIQUEFIER Specimen Anatomical Collection Method / Collection Time Recei meg Time (Source) Location / Volume Laterality Blood Venipuncture / 08/07/2020 11:41 1 Unknown AM BUTTER LIQUEFIER 11:42 AM BUTTER LIQUEFIER Pat Mishra MD LAB_1 Performing Organization Address City/[facility]/ZIP Code Phon e Number [facility] [address] [place] [address] TB QuantiFERON Gold Plus Mitogen (08/07/2020 11:41 AM BUTTER LIQUEFIER) P athologist Signature MITOGEN >10.000 IU/mL 08/10/2020 [facility] 11:26 AM BUTTER [facility]QUEFIER LABORATORY Specimen Anatomical Collection Method / Collection Time Recei meg Time (Source) Location / Volume Laterality Blood Venipuncture / 08/07/2020 11:41 1 Unknown AM BUTTER LIQUEFIER 11:42 AM BUTTER LIQUEFIER Pat Mishra MD LAB_1 Performing Organization Address City/[facility] Phon e Number [facility] [address] [place] [address] TB QuantiFERON Gold Plus TB2 (08/07/2020 11:41 AM BUTTER LIQUEFIER) P athologist Signature TB2 0.179 IU/mL 08/10/2020 [facility] 11:33 AM BUTTER [facility]QUEFIER LABORATORY Specimen Anatomical Collection Method / Collection Time Recei meg Time (Source) Location / Volume Laterality Blood Venipuncture / 08/07/2020 11:41 1 Unknown AM BUTTER LIQUEFIER 11:42 AM BUTTER LIQUEFIER Pat Mishra MD LAB_1 Performing Organization Address [facility] Phon e Number [facility] [address] [place] [address] TB QuantiFERON Gold Plus TB1 (08/07/2020 11:41 AM BUTTER LIQUEFIER) P athologist Signature TB1 0.150 IU/mL 08/10/2020 [facility] 11:33 AM [facility]TER [facility]FI[facility] LABORATORY Specimen Anatomical Collection Method / Collection Time Recei meg Time (Source) Location / Volume Laterality Blood Venipuncture / 08/07/2020 11:41 1 Unknown AM BUTTER LIQUEFIER 11:42 AM BUTTER LIQUEFIER Pat Mishra MD LAB_1 Performing Organization Address City/State/ZIP Code Phon e Number [facility] [address] [place] [address] (ABNORMAL) Lipid Panel - LDLD If Trig High (08/07/2020 11:41 AM BUTTER LIQUEFIER) [facility] Method Time Signature Cholesterol 193 0 - 199 08/07/2020 [facility] mg/dL 3:38 PM BUTTER [facility]QUEFIER LABORATORY Triglyceride 83 <=149 08/07/2020 [facility] mg/dL 3:38 PM [facility] LABORATORY HDL Cholesterol 45 >=40 08/07/2020 [facility] mg/dL 3:38 PM [facility] LABORATORY LDL, Calculated 131 (H) <130 08/07/2020 [facility] mg/dL 3:38 PM BUTTER [facility]QUEFIER LABORATORY Non HDL Chol, 148 mg/dL 08/07/2020 [facility] Calculated 3:38 PM [facility] LABORATORY Cholesterol/HDL 4.3 08/07/2020 [facility] Ratio 3:38 PM [facility] LABORATORY Hours Fasting 14 08/07/2020 [facility] 3:38 PM BUTTER LIQUEFIER Specimen Anatomical Collection Method / Collection Time Recei meg Time (Source) Location / Volume Laterality Blood Venipuncture / 08/07/2020 11:41 1 Unknown AM BUTTER LIQUEFIER 11:42 AM BUTTER LIQUEFIER Pat Mishra MD LAB_1 Performing Organization Address City/State/ZIP Code Phon e Number [facility] [address] [place], [place] [address] [facility] [address] [place] [address], [facility] Hemoglobin A1C Glycosylated (08/07/2020 11:41 AM BUTTER LIQUEFIER) [facility] Method Time Signature Hemoglobin A1C 5.5 <=5.6 % 08/07/2020 [facility] 10:30 PM BUTTER LIQUEFIER CEN[facility]AL LAB Specimen Anatomical Collection Method / Collection Time Recei meg Time (Source) Location / Volume Laterality Blood Venipuncture / 08/07/2020 11:41 1 Unknown AM BUTTER LIQUEFIER 11:42 AM BUTTER LIQUEFIER Pat Mishra MD LAB_1 Performing Organization Address [facility] Phon e Number [facility] [address] [address] (ABNORMAL) HIV-1 RNA Quant by TMA (08/07/2020 11:41 AM BUTTER LIQUEFIER) [facility] gist Method Time Signature HIV Interp Detected Not 08/10/2020 [facility] (A) Detected 12:08 PM CENTRAL LAB BUTTER LIQUEFIER HIV Copies <30 <30 08/10/2020 [facility] per/ml copies/mL 12:08 PM CENTRAL LAB BUTTER LIQUEFIER HIV Log <1.47 <1.47 log 08/10/2020 [facility] Copies/ml copies/mL 12:08 PM CENTRAL LAB BUTTER LIQUEFIER Specimen Anatomical Collection Method / Collection Time Recei meg Time (Source) Location / Volume Laterality Blood Venipuncture / 08/07/2020 11:41 1 Unknown AM BUTTER LIQUEFIER 11:42 AM BUTTER LIQUEFIER Narrative [facility] - 08/10/2020 12:08 PM BUTTER LIQUEFIER Test performed by Engine Maintenance Mechanic Mediated Amplification. Pat Mishra MD LAB_1 Performing Organization Address [facility] Phon e Number [facility] [address] [address] Creatinine / GFR (08/07/2020 11:41 AM BUTTER LIQUEFIER) P athologist Signature Creatinine 0.80 0.73 - 08/07/2020 [facility] 1.18 mg/dL 3:38 PM [facility] LABORATORY GFR, Estimated >60 >60 08/07/2020 [facility] mL/min/1.7 3:38 PM [facility] LABORATORY 3m2 Specimen Anatomical Collection Method / Collection Time Recei meg Time (Source) Location / Volume Laterality Blood Venipuncture / 08/07/2020 11:41 1 Unknown AM BUTTER LIQUEFIER 11:42 AM BUTTER LIQUEFIER Pat Mishra MD LAB_1 Performing Organization Address City/State/ZIP Code Phon e Number [facility] [address] [place] [address] ALT (SGPT) (08/07/2020 11:41 AM BUTTER LIQUEFIER) P athologist Signature ALT (SGPT) 27 0 - 55 U/L 08/07/2020 [facility] 3:38 PM [facility] LABORATORY Specimen Anatomical Collection Method / Collection Time Recei meg Time (Source) Location / Volume Laterality Blood Venipuncture / 08/07/2020 11:41 Unknown AM BUTTER LIQUEFIER 11:42 AM BUTTER LIQUEFIER Pat Mishra MD LAB_1 Performing Organization Address City/State/ZIP Code Phon e Number [facility] [address] [place] [address] Urinalysis Routine(Micro If Pos) (08/07/2020 11:36 AM BUTTER LIQUEFIER) Patholo gist Method Time Signature Urine Color Yellow Straw-Yellow 08/07/2020 [facility] 11:38 AM [facility] LAB Urine Clarity Clear Clear 08/07/2020 [facility] 11:38 AM [facility] LAB Specific 1.010 1.005 - 08/07/2020 [facility] [place], 1.030 11:38 AM [facility]TER [facility]FIER LAB Urine PH Urine 7.0 5.0 - 8.0 08/07/2020 [facility] 11:38 AM [facility] LAB Protein, Negative Neg/Trace 08/07/2020 [facility] Urine Qual 11:38 AM [facility] LAB (mg/dL) Glucose Urine Negative Negative 08/07/2020 [facility] Qual (mg/dL) 11:38 AM [facility] LAB Ketones, Negative Negative 08/07/2020 [facility] Urine (mg/dL) 11:38 AM [facility] LAB Urobilinogen, 0.2 <2.0 08/07/2020 [facility] Urine (EU/dL) 11:38 AM [facility] LAB Bilirubin Negative Negative 08/07/2020 [facility] Urine 11:38 AM [facility] LAB Blood, Urine Negative Neg/Trace 08/07/2020 [facility] 11:38 AM [facility] LAB Nitrite Urine Negative Negative 08/07/2020 [facility] 11:38 AM [facility] LAB Leukocyte Negative Negative 08/07/2020 [facility] Est. 11:38 AM [facility] LAB Urine Source Clean Catch 08/07/2020 [facility] 11:38 AM [facility] LAB Specimen Anatomical Collection Method Collection Time Receive d Time (Source) Location / / Volume Laterality Urine URINE SPECIMEN Non-blood 08/07/2020 11:36 COLLECTION, CLEAN Collection / AM BUTTER LIQUEFIER 11:[address] CATCH / Unknown Unknown Pat Mishra MD LAB_1 Performing Organization Address City/State/ZIP Code Phon e Number [facility] [address] [place] [phone] documented in this encounter Visit Diagnoses Diagnosis HIV disease ([facility]) Human immunodeficiency virus [HIV] disea se documented in this encounter Care Teams Branch Library Clerk Relationship Specialty Start Date End Date Marino Rubio PA-C PCP - General Physician Tax Compliance Representative 07/18/19 [address] [place] [address] documented as of this encounter
--- OUTSIDE RECORDS SUMMARY | 2022-04-29 16:39 | XMS_ITS | Encounter Summary ---
:1985 Author Organization [facility] Address [address], [place] [address] Care Team Providers Name Role Phone Marino Rubio PA-C Primary Care Provider Reason for Visit Reason Comments Provider Orders Encounter Details Date Type Department Care Team Description 10/07/2019 Telephone [facility] [address] Provider Orders Infectious Disease MD [place] [address] [facility] [place] [address] [phone] Social History Tobacco Use Types Packs/Day Years Used Date Smoking Tobacco: Never Smokeless Tobacco: Never Alcohol Use Standard Drinks/Week Comments Yes 0 (1 standard drink = 0.6 oz pure alcoho l) Sex Assigned at Date Recorded Not on file documented as of this encounter Nursing Notes Soheila Winn RN - 10/08/2019 11:44 AM CDT Letter faxed. Pat Miles MD - 10/08/2019 11:28 AM CDT Letter reviewed and updated, thank you . Please send to patient. Soheila Winn RN - 10/08/2019 8:19 AM CDT Pt in agreement with below verbage. Letter pended. Fax to [phone]. He says nothing needed for ADA for now, he will use this letter as he needs to. Pat Miles MD - 10/07/2019 3:39 PM CDT I don't know what he wants me to write. 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 If this is what he wants can nursing confirm with him then start a letter and send to me to sign off on. I'm not sure how to send it to [facility], does it automatically go there? 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 Patient wants HIV status excluded and IFD excluded and to download into [facility] so can print and use it if need be.[phone] documented in this encounter Plan of Treatment Not on filedocumented as of this encounter Visit Diagnoses Not on filedocumented in this encounter Care Teams Bartender Relationship Specialty Start Date End Date Marino Rubio PA-C PCP - General Physician Plaque Maker 07/18/19 [address] [place] [address] documented as of this encounter
--- OUTSIDE RECORDS SUMMARY | 2022-04-29 16:39 | XMS_ITS | Encounter Summary ---
:1985 Author Organization [facility] Address [address], [place] [address] Care Team Providers Name Role Phone Marino Rubio PA-C Primary Care Provider Encounter Details Date Type Department Care Team Description 08/19/2019 Lab Visit [facility] [address] HIV disease (HRC) [address] [place], [place] [address] Social History Tobacco Use Types Packs/Day Years Used Date Smoking Tobacco: Never Smokeless Tobacco: Never Alcohol Use Standard Drinks/Week Comments Yes 0 (1 standard drink = 0.6 oz pure alcoho l) Sex Assigned at Date Recorded Not on file documented as of this encounter Plan of Treatment Not on filedocumented as of this encounter Procedures Procedure Name Priority Date/Time Associated Comments Diagnosis COCCIDIOIDES ANTIBODY Routine 08/19/2019 5:05 PM HIV disease ( [facility]) Results for this PANEL PET TECHNOLOGIST procedure are i n the results section. LIPID PANEL AND Routine 08/19/2019 5:05 PM HIV disease ([facility]) R esults for this DIRECT LDL(IF NEEDED) PET TECHNOLOGIST proced ure are in the results section. documented in this encounter Results (ABNORMAL) Lipid Panel - LDLD If Trig High (08/19/2019 5:05 PM PET TECHNOLOGIST) [facility] Method Time Signature Cholesterol 171 0 - 199 08/19/2019 [facility] mg/dL 5:32 PM PET TECHNOLOGIST [address] LABORATORY Triglyceride 238 (H) <=149 08/19/2019 [facility] mg/dL 5:32 PM PET TECHNOLOGIST [address] LABORATORY HDL Cholesterol 42 >=40 08/19/2019 [facility] mg/dL 5:32 PM PET TECHNOLOGIST [address] LABORATORY LDL, Calculated 81 <130 08/19/2019 [facility] mg/dL 5:32 PM PET TECHNOLOGIST [address] LABORATORY Non HDL Chol, 129 mg/dL 08/19/2019 [facility] Calculated 5:32 PM PET TECHNOLOGIST [address] LABORATORY Cholesterol/HDL 4.1 08/19/2019 [facility] Ratio 5:32 PM PET TECHNOLOGIST [address] LABORATORY Hours Fasting 5 08/19/2019 [facility] 5:32 PM PET TECHNOLOGIST [address] LABORATORY Specimen Anatomical Collection Method / Collection Time Recei meg Time (Source) Location / Volume Laterality Blood Venipuncture / 08/19/2019 5:05 08/19/2019 5:05 Unknown PM PET TECHNOLOGIST PM PET TECHNOLOGIST Pat Mishra MD LAB_1 Performing Organization Address City/State/ZIP Code Phon e Number [facility] [address] [place], [place] [address] [address] Coccidioides Antibody Panel (08/19/2019 5:05 PM PET TECHNOLOGIST) [facility] gist Method Time Signature Coccidioides 0.8 <=0.9 IV 08/24/2019 [facility] Ab,IgG 4:24 AM PET TECHNOLOGIST LABORATORIES Comment: INTERPRETIVE INFORMATION: Coccidioides A ntibody, IgG: ??0.9 IV or less: ? Negative - No s ignificant level of ?Coccidi oides IgG antibody detected. ??1.0 - 1.4 IV: ? Equivocal - Qu estionable presence of ?Coccidi oides IgG antibody detected. ?Repeat testing in 10-14 days may be ?helpful . ??1.5 IV or greater: ??Positive - Prese nce of IgG antibody ?to Cocc idioides detected, suggestive ?of curr ent or past infection. IgG antibody usually appears by the thir d week of infection and may persist for years. Both tube precipi tin (TP) and CF antigens are represented in the [facility] tests. Coccidioides Ab,IgM 0.4 <=0.9 IV 08/24/2019 4:24 [facility] Comment: INTERPRETIVE INFORMATION: Coccidioides A ntibody, IgM: ??0.9 IV or less: ? Negative - No s ignificant level of ?Coccidi oides IgM antibody detected. ??1.0 - 1.4 IV: ? Equivocal - Qu estionable presence of ?Coccidi oides IgM antibody detected. ?Repeat testing in 10-14 days may be ?helpful . ??1.5 IV or greater: ??Positive - Prese nce of IgM antibody ?to Cocc idioides detected, suggestive ?of curr ent or recent infection. In most symptomatic patients, IgM antibo dy usually appears by the second week of infection and disappears by the fourth month. Both tube precipitin (TP) and CF antigens are represented in the [facility] tests. Coccidioides None Detected None Detected 08/24/2019 4:24 [facility] Antibody (ID) AM PET TECHNOLOGIST Comment: INTERPRETIVE INFORMATION: Coccidioides i mmitis Antibodies by ?I mmunodiffusion Coccidioides infection is demonstrated b y the detection of IgM antibody to the Immunodiffusion Tube Pre cipitin (IDTP) antigen. IgM antibody may be detected 1 to 3 week s after the onset of primary infection and may suggest active or recent infection. IgM antibody is rarely detected 6 months aft er infection but may reappear with relapse and may persist in disseminated cases. IgG antibody may also be demonstrated in response to the Immunodiffusion Complement Fixation (IDC F) antigen and may represent active or past infection. Nega tive fungal serology does not rule out current infection. Performed by [facility], [address] [place] [address] [email or web address], Richard Escobar MD, Lab. Director Coccidiodes Ab By CF <1:2 <1:2 08/24/2019 4:24 AM PET TECHNOLOGIST [facility] Comment: INTERPRETIVE INFORMATION: Coccidioides A b by Complement Fixation (CF) Any titer suggests past or current infec tion. However, greater than 30 percent of cases with chronic re sidual pulmonary disease have negative Complement Fixation (CF) t ests. Titers of less than 1:32 (even as low as 1:2) may indicate p ast infection or self-limited disease; anticoccidiodal CF antibody titers in excess of 1:16 may indicate disseminated infect ion. CF serology may be used to follow therapy. Antibody in CSF is considered diagnostic for coccidioidal meningitis, although 10 percent of patients with coccidioidal meningitis will not have an tibody in CSF. Specimen Anatomical Collection Method / Collection Time Recei meg Time (Source) Location / Volume Laterality Blood Venipuncture / 08/19/2019 5:05 08/19/2019 5:05 Unknown PM PET TECHNOLOGIST PM PET TECHNOLOGIST Pat Mishra MD LAB_1 Performing Organization Address City/State/ZIP Code Phon e Number [facility] [address] [place], [place] [address] documented in this encounter Visit Diagnoses Diagnosis HIV disease ([facility]) Human immunodeficiency virus [HIV] disea se documented in this encounter Care Teams Radio Producer Relationship Specialty Start Date End Date Marino Rubio PA-C PCP - General Physician Brazing Furnace Feeder 07/18/[address] [place] [address] documented as of this encounter
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
--- OUTSIDE RECORDS SUMMARY | 2022-04-29 16:39 | XMS_ITS | Encounter Summary ---
:1985 Author Organization [facility] Address [address] [address] Care Team Providers Name Role Phone Marino Rubio PA-C Primary Care Provider Reason for Visit Reason Comments Stye SWELLING, EYE Encounter Details Date Type Department Care Team Description 09/20/2019 Nurse Triage [place] [address] Family Marino Rubio, Johny jesus; SWELLING, EYE Medicine CHEMO [address] [facility] [address] [place], [place] [address] [phone] Social History Tobacco Use Types Packs/Day Years Used Date Smoking Tobacco: Never Smokeless Tobacco: Never Alcohol Use Standard Drinks/Week Comments Yes 0 (1 standard drink = 0.6 oz pure alcoho l) Sex Assigned at Date Recorded Not on file documented as of this encounter Nursing Notes Calli Lozano RN - 09/20/2019 8:46 AM CST Returned call to pt, says he has a sty in both eyes, noticed on 09/17. They are painful, swollen& left upper eyelid has pus bubble, right side is in crevice or inside corner of eyelid. Denies drainage from either spot. Tried to use a needle, into the pus bubble, but didn't work. Right side iseraser size. Left eyelid is getting more inflamed, and redness increasing by the day. Denies blurredvision, fever, or eyelid swelling. Advised to be seen and appt scheduled for today 09/20 at 4:00pm with PCP in [place]. Advised to call back directly if there are questions, or if these symptoms worsen. Problem list reviewed as related to this call. Reason for Disposition ??? Redness spreads around the eye (both upper and lower eyelid are red) Protocols used: [id number] [facility] Krystyna Nj - 09/20/2019 7:53 AM CST Symptoms Describe your symptoms (if pain, include location): Stye in both eyes, swelling/painful When did they start? Monday09/17/19 Additional comments (related to the above concern): Patient is asking what he should do, attempted to open with a needle. If a prescription is needed, patient would [...] Triage Pool (only transfer if caller insists) [facility] documented in this encounter Plan of Treatment Not on filedocumented as of this encounter Visit Diagnoses Not on filedocumented in this encounter Care Teams High Pressure Firer Relationship Specialty Start Date End Date Marion Rubio PA-C PCP - General Physician Hot Pond Operator 07/18/19 [address] [place] [address] documented as of this encounter
--- OUTSIDE RECORDS SUMMARY | 2022-04-29 16:39 | XMS_ITS | Encounter Summary ---
:1985 Author Organization [facility] Address [address] [address] Care Team Providers Name Role Phone Marino Rubio PA-C Primary Care Provider Encounter Details Date Type Department Care Team Description 04/02/2020 Notes/Orders [facility] [address] bacterial Infectious Disease C, RN sinusitis [address] [place] [address] Social History Tobacco Use Types Packs/Day Years [...] as of this encounter Visit Diagnoses Diagnosis Acute bacterial sinusitis Acute sinusitis, unspecified documented in this encounter Care Teams Graphics Specialist Relationship Specialty Start Date End Date Marino Rubio PA-C PCP - General Physician Inspector Repairer 07/18/[address] [place] [address] documented as of this encounter
--- OUTSIDE RECORDS SUMMARY | 2022-04-29 16:39 | XMS_ITS | Encounter Summary ---
:1985 Author Organization [facility] Address [address], [place] [address] Care Team Providers Name Role Phone Marino Rubio PA-C Primary Care Provider Encounter Details Date Type Department Care Team Description 02/15/2020 Notes/Orders [facility] [address], Trans aminitis (Primary Infectious Disease Pat Staples MD Dx) [address] [facility] [address] [place] [address] [phone] Social History Tobacco Use Types Packs/Day Years [...] on filedocumented as of this encounter Results Hepatitis C Virus [place] In-House (02/14/2020 1:08 PM CDT) [facility] Time Signature Hepatitis C Negative Negative [facility]/18[facility] (Non (Non 4:41 PM CDT CENTRAL LAB Reactive) Reactive) Comment: Antibodies to HCV not detected. Does not exclude the possiblity of exposure to HCV. Specimen Anatomical Collection Method / Collection Time Recei meg Time (Source) Location / Volume Laterality Blood Venipuncture / 02/14/2020 1:08 02/14/2020 1:08 Unknown PM CDT PM CDT Pat Mishra MD LAB_1 Performing Organization Address [facility] Phon e Number [facility] CENTRAL LAB [address] [address] (ABNORMAL) *AST (02/14/2020 1:08 PM CDT) P athologist Signature AST (SGOT) 83 (H) 10 - 40 02/17/2020 [facility] U/L 11:45 AM CDT CENTRAL LAB Specimen Anatomical Collection Method / Collection Time Recei meg Time (Source) Location / Volume Laterality Blood Venipuncture / 02/14/2020 1:08 02/14/2020 1:08 Unknown PM CDT PM CDT Pat Mishra MD LAB_1 Performing Organization Address [facility] Phon e Number [facility] CENTRAL LAB [address] [address] Alkaline Phosphatase (02/14/2020 1:08 PM CDT) [facility] Time Signature Alkaline 54 40 - 150 02/17/2020 [facility] Phosphatase U/L 11:45 AM CDT CENTRAL LAB Specimen Anatomical Collection Method / Collection Time Recei meg Time (Source) Location / Volume Laterality Blood Venipuncture / 02/14/2020 1:08 02/14/2020 1:08 Unknown PM CDT PM CDT Pat Mishra MD LAB_1 Performing Organization Address [facility] Phon e Number [facility] CENTRAL LAB [address] [address] Bilirubin Total (02/14/2020 1:08 PM CDT) Patholo gist Method Time Signature Bilirubin, 0.5 0.2 - 1.2 02/17/2020 [facility] Total mg/dL 11:45 AM CDT CENTRAL LAB Specimen Anatomical Collection Method / Collection Time Recei meg Time (Source) Location / Volume Laterality Blood Venipuncture / 02/14/2020 1:08 02/14/2020 1:08 Unknown PM CDT PM CDT Pat Mishra MD LAB_1 Performing Organization Address City/State/ZIP Code Phon e Number [facility] LAB [address] [address] documented in this encounter Visit Diagnoses Diagnosis Transaminitis - Primary Nonspecific elevation of levels of trans aminase or lactic acid dehydrogenase (LDH) documented in this encounter Care Teams Music Specialist Relationship Specialty Start Date End Date Marino Rubio PA-C PCP - General Physician Technology Engineer 07/18/19 [address] [place] [address] documented as of this encounter
--- OUTSIDE RECORDS SUMMARY | 2022-04-29 16:39 | XMS_ITS | Encounter Summary ---
:1985 Author Organization [facility] Address [address], [place] [address] Care Team Providers Name Role Phone Marino Rubio PA-C Primary Care Provider Reason for Visit Reason Comments Red Eye stye Encounter Details Date Type Department Care Team Description 09/20/2019 Office Visit [place] [address] Marino Rubio Hordeolu m externum, unspecified laterality (Primary Dx); Family Medicine CHEMO Anxiety [address] [address] [place] [address] [phone] Social History Tobacco Use Types Packs/Day Years Used Date Smoking Tobacco: Never Smokeless Tobacco: Never Alcohol Use Standard Drinks/Week Comments Yes 0 (1 standard drink = 0.6 oz pure alcoho l) Sex Assigned at Date Recorded Not on file documented as of this encounter Last Filed Vital Signs Vital Sign Reading Time Taken Comments Blood Pressure 128/80 09/20/2019 4:03 PM JUDICIAL ASSISTANT Pulse 81 09/20/2019 4:03 PM JUDICIAL ASSISTANT Temperature - - Respiratory Rate - - Oxygen Saturation - - Inhaled Oxygen Concentration - - Weight 71.7 kg (158 lb) 09/20/2019 4:03 PM JUDICIAL ASSISTANT Height - - Body Mass Index 24.75 08/30/2019 1:17 PM JUDICIAL ASSISTANT documented in this encounter Patient Instructions Patient InstructionsMarino Rubio PA-C - 09/20/2019 4:00 PM CST Plan: 1). Ocuflox 1 drop 4x daily for 5 days 2). Keflex 500mg 3x daily for 7 days 3). Warm compresses for drainage. 4). Symptomatic care with fluids, rest, Ibuprofen/Tylenol for pain and fevers. 5). Follow up with acute worsening of symptoms, visual changes or any other concerns. CIAL ASSISTANT documented in this encounter Progress Notes Marino Rubio PA-C - 09/20/2019 4:00 PM CST Chief Complaint Patient presents with ??? Red Eye stye History of present illness: Fernie Marroquin is a 33 y.o. male who presents with redness/swelling and some discomfort on eyelids over past couple of days. Has more purulent area now. No actual drainage. No conjunctival redness or conjunctival drainage. No other URI symptoms. NOTE: Has underlying anxiety overall stable on current regimen. Is taking Propranolol 60mg XR daily.Needs refills of medication. Review of Systems: Constitutional: No fevers, chills, fatigue Eyes: Positive for eyelid redness, swelling. No conjunctival redness/drainage or visual changes. ENT: No ear pain, no congestion, no sore throat CHEST: No cough, no breathing difficulty HEART: No chest pain, no edema. M/S: No back pain, joint pain or swelling, no muscle pain. NEURO: No headaches, dizziness, weakness SKIN: No rashes or itching, no worrisome skin lesions. Past Medical History: Reviewed and updated in medical record at visit Past Surgical History: Reviewed and updated in medical record at visit Family History: Reviewed and updated in medical record at visit Medications: Reviewed and reconciled in medical record at visit. Allergies: Reviewed and updated in medical record at visit. Physical Exam: Vitals: 09/20/19 1603 BP: 128/80 Pulse: 81 GEN: Alert, oriented, well nourished/hydrated in NAD EYES: PEERL, EOMI, Areas of redness/swelling/purulent area on mid eyelid. No conjunctival injection orpurulent drainage. Corneas appear normal ENT: Ears with clear canals, TMs normal. Nose without congestion. Throat with moist mucus membranes,no erythema NECK: Supple, trachea midline, no LAD CHEST: Normal effort, CTA. HEART: RRR, No audible murmur, rub or gallop. SKIN: Warm and dry without rash M/S: No joint swelling or redness. NEURO: CN 2-12 intact, non-focal exam PSYCH: Alert and oriented. Normal affect. Diagnosis: Encounter Diagnoses Name Primary? Hordeolum externum, unspecified laterality Yes ??? Anxiety (HRC) Plan: 1). Ocuflox 1 drop 4x daily for 5 days 2). Keflex 500mg 3x daily for 7 days 3). Warm compresses for drainage. 4). Symptomatic care with fluids, rest, Ibuprofen/Tylenol for pain and fevers. 5). Follow up with acute worsening of symptoms, visual changes or any other concerns. CIAL ASSISTANT documented in this encounter Plan of Treatment Not on filedocumented as of this encounter Visit Diagnoses Diagnosis Hordeolum externum, unspecified laterali ty - Primary Anxiety (HRC) Anxiety state, unspecified documented in this encounter Care Teams Rn Rehab Relationship Specialty Start Date End Date Marino Rubio PA-C PCP - General Physician Financial Services Professional 07/18/19 [address] [place] [address] documented as of this encounter
--- OUTSIDE RECORDS SUMMARY | 2022-04-29 16:39 | XMS_ITS | Encounter Summary ---
:1985 Author Organization [facility] Address [address], [place] [address] Care Team Providers Name Role Phone Marino Rubio PA-C Primary Care Provider Encounter Details Date Type Department Care Team Description 03/12/2020 Orders Only [facility] [address], Trans aminitis (Primary Infectious Disease Pat Staples MD Dx) [address] [place] [address] [facility] [place] [address] [phone] Social History Tobacco Use Types Packs/Day Years [...] filedocumented as of this encounter Results (ABNORMAL) Hepatic Function Panel (04/17/2020 2:00 PM CDT) [facility] Method Time Signature Alkaline 62 40 - 150 04/17/2020 [facility] Phosphatase U/L 6:39 PM CDT CENTRAL LAB Bilirubin, 0.7 0.2 - 1.2 04/17/2020 [facility] Total mg/dL 6:39 PM CDT CENTRAL LAB Bilirubin, 0.3 0.0 - 0.5 04/17/2020 [facility] Direct mg/dL 6:39 PM CDT CENTRAL LAB AST (SGOT) 46 (H) 10 - 40 04/17/2020 [facility] U/L 6:39 PM CDT CENTRAL LAB ALT (SGPT) 88 (H) 0 - 55 04/17/2020 [facility] U/L 6:39 PM CDT CENTRAL LAB Protein, Total 7.8 6.4 - 8.3 04/17/2020 [facility] g/dL 6:39 PM CDT CENTRAL LAB Albumin 4.6 3.5 - 5.0 04/17/2020 [facility] g/dL 6:39 PM CDT CENTRAL LAB Specimen Anatomical Collection Method / Collection Time Recei meg Time (Source) Location / Volume Laterality Blood Venipuncture / 04/17/2020 2:00 04/17/2020 2:00 Unknown PM CDT PM CDT Pat Mishra MD LAB_1 Performing Organization Address City/State/ZIP Code Phon e Number [facility] CENTRAL LAB [address] [address] documented in this encounter Visit Diagnoses Diagnosis Transaminitis - Primary Nonspecific elevation of levels of trans aminase or lactic acid dehydrogenase (LDH) documented in this encounter Care Teams Party Plan Sales Host/Hostess Relationship Specialty Start Date End Date Marino Rubio PA-C PCP - General Physician Wastewater Design Engineer 07/18/19 [address] [place] [address] documented as of this encounter
--- OUTSIDE RECORDS SUMMARY | 2022-04-29 16:39 | XMS_ITS | Encounter Summary ---
:1985 Author Organization [employer] Address [address] [address] Care Team Providers Name Role Phone Marino Rubio PA-C Primary Care Provider Reason for Visit Reason Comments Symptoms Encounter Details Date Type Department Care Team Description 01/17/2020 Telemedicine [facility] [address], Acu te bacterial sinusitis (Primary Dx); Infectious Disease ASSISTANT CORPORATION COUNSEL, LIQUOR INSPECTOR Encounter for blood typing; [address] [facility] (disorder) [place] [address] [phone] (Wo rk) Social History Tobacco Use Types [...] documented as of this encounter Progress Notes Lara Boogie RN - 01/17/2020 2:00 PM CDT Pre-Visit Planning for Phone/Video Visit Reviewed the following: - Medications (pended refills) - Pharmacy - Allergies - Tobacco/alcohol use Pain: Denies Patient Concerns: 3 week sinus infection with no improvement Jessica White APRN, LIQUOR INSPECTOR - 01/17/2020 2:00 PM CDT SUBJECTIVE: Fernie Marroquin is a 34 y.o. male who presents by video for 3 weeks congestion and headache HPI: Fernie is a patient of Dr Eaton with HIV disease, on Biktarvy with a viral load <30 and CD4 count of 282/24%. Concerns about nasal congestion, headache and frontal face pain for almost 3 weeks. No fevers, but felt chills at the beginning. No cough or SOB. He has been using neti-pit and herbal remedies without much improvement. He is feeling quite fatigued from the headache. He is also quite concerned about thrush if he needs to take an antibiotic. He has had it before and it was quite painful. Fernie also wanted to review upcoming labs, and he wanted a blood type added on. He is concerned aboutvarious cancer diagnosis in his family and wonders about labs testing for this. I assured him that routine HIV tests look to make sure your vital organs are working and blood counts are normal. If there is a specific symptoms or family history of cancer, we can talk about it specifically in terms of future screening and monitoring. Routine check up with Dr. Eaton scheduled for end of January. Review of systems: ROS: A complete 10 system review of systems was obtained. Pertinent positives and negatives are mentioned in the HPI. The remainder of systems was negative. Patient Active Problem List Diagnosis ??? HIV (human immunodeficiency virus infection) (HRC) ??? Concussion with loss of consciousness ??? Migraine without status migrainosus, not intractable ??? Constipation, chronic ??? CODY (generalized anxiety disorder) Medications: Reviewed and updated in [facility]. See med list for current medications. Adverse Drug Reactions: Allergies Allergen Reactions ??? Cefaclor Unknown, Itching and Rash Past Medical History: Diagnosis Date ??? HIV (human immunodeficiency virus infection) (HRC) 10/10/2018 Social History: Social History Socioeconomic History ??? Marital status: Unknown Spouse name: Not on file ??? Number of children: Not on file ??? Years of education: Not on file ??? Highest education level: Not on file Occupational History ??? Not on file Social Needs ??? Financial resource strain: Not on file ??? Food insecurity Worry: Not on file Inability: Not on file ??? Transportation needs Medical: Not on file Non-medical: Not on file Tobacco Use ??? Smoking status: Never Smoker ??? Smokeless tobacco: Never Used Substance and Sexual Activity ??? Alcohol use: Yes Comment: once a week (3-8) ??? Drug use: Never ??? Sexual activity: Yes Lifestyle ??? Physical activity Days per week: Not on file Minutes per session: Not on file ??? Stress: Not on file Relationships ??? Social connections Talks on phone: Not on file Gets together: Not on file Attends religion service: Not on file Active member of club or organization: Not on file Attends meetings of clubs or organizations: Not on file Relationship status: Not on file ??? Intimate partner violence Fear of current or ex partner: Not on file Emotionally abused: Not on file Physically abused: Not on file Forced sexual activity: Not on file Other Topics Concern ??? Not on file Social History Narrative ??? Not on file Family History: Family History Problem Relation Age of Onset ??? Cancer, Prostate Father ??? Hypertension Father OBJECTIVE: Vital Signs: There were no vitals taken for this visit. General: Alert, cooperative, no distress, appears stated age. Head: Normocephalic. Mouth: No visible oral lesions Eyes: PERRL, conjunctiva clear and anicteric. Neck: Supple, and symmetric. Lungs: Breathing comfortably Extremities: No edema. No lymphadenopathy. Neuro: Grossly intact. Skin: No visible rash. Psych: Does not appear anxious or depressed. Labs: Lab Results Component Value Date CD3/CD4 (T [place] Cells) % 24.0 (L) 06/27/2019 HIV Copies per/ml 1,199 (H) 10/04/2018 ASSESSMENT and PLAN: ICD-10-CM 1. Acute bacterial sinusitis J01.90 doxycycline (VIBRAMYCIN) 100 MG capsule B96.89 fluticasone propionate (FLONASE) 50 MCG/ACT nasal solution 2. Encounter for blood typing Z01.83 ABO Blood Type 3. Thrush (disorder) B37.0 fluconazole (DIFLUCAN) 100 MG tablet The patient was discharged ambulatory and in stable condition. OK to send lab results to [facility]. Will call if abnormal. Followup: Return to clinic for routine care, sooner if problems arise. Total time 20 minutes, counseling time 20 minutes regarding above. Counseled the patient on treatment options, outcomes, side effects, alternative medicine and the importance of compliance. Video/phone visit Clinician located at: clinic Patient located at: home Total time spent with patient: 20 minutes Jessica White APRN, CNP 2:22 PM 01/17/2020 documented in this encounter Plan of Treatment Not on filedocumented as of this encounter Results ABO Blood Type (02/14/2020 1:08 PM CDT) P athologist Signature ABO A 02/14/2020 5:44 [facility] B[facility]OD PM CDT BANK Specimen Anatomical Collection Method / Collection Time Recei meg Time (Source) Location / Volume Laterality Blood Venipuncture / 02/14/2020 1:08 02/14/2020 1:08 Unknown PM CDT PM CDT Jessica White APRN, CNP LAB_1 Performing Organization Address City/State/ZIP Code Phon e Number [facility] [address] [place] [address] documented in this encounter Visit Diagnoses Diagnosis Acute bacterial sinusitis - Primary Acute sinusitis, unspecified Encounter for blood typing Thrush (disorder) documented in this encounter Care Teams Manager Exchange Relationship Specialty Start Date End Date Marino Rubio PA-C PCP - General Physician Bulb Farmworker 07/18/19 [address] [place] [address] documented as of this encounter
--- OUTSIDE RECORDS SUMMARY | 2022-04-29 16:39 | XMS_ITS | Encounter Summary ---
:1985 Author Organization [employer] Address [address], [place] [address] Care Team Providers Name Role Phone Marino Rubio PA-C Primary Care Provider Reason for Visit Reason Comments Other Encounter Details Date Type Department Care Team Description 01/02/2020 Telephone [facility] [address], Other Infectious Disease [address] [place] [address] [place], [place] [id number] (Wo rk) Social History Tobacco Use Types Packs/Day Years Used Date Smoking Tobacco: Never Smokeless Tobacco: Never Alcohol Use Standard Drinks/Week Comments Yes 0 (1 standard drink = 0.6 oz pure alcoho l) Sex Assigned at Date Recorded Not on file documented as of this encounter Nursing Notes Pat Miles MD - 01/02/2020 10:43 AM CDT That is fine, agree with recommendations given by nursing Amanda Salas RN - 01/02/2020 10:30 AM CDT Pt calling and states that he must of missed his medications yesterday because they were still in his pill box. Informed pt that he should just continue like normal today and going forward and missing one dose of medication is ok as long as he doesn't consistently miss doses which he isn't. FYI to . Pt is scheduled for a f/u at the end of January and has lab orders to complete prior. documented in this encounter Plan of Treatment Not on filedocumented as of this encounter Visit Diagnoses Not on filedocumented in this encounter Care Teams Link Trainer Operator Relationship Specialty Start Date End Date Marino Rubio PA-C PCP - General Physician [place] Program Coordinator 07/18/19 [address] [place] [address] documented as of this encounter
--- OUTSIDE RECORDS SUMMARY | 2022-04-29 16:39 | XMS_ITS | Encounter Summary ---
:1985 Author Organization [employer] Address [address], [place] [address] Care Team Providers Name Role Phone Marino Rubio PA-C Primary Care Provider Reason for Visit Reason Comments COVID Screening Encounter Details Date Type Department Care Team Description 02/14/2020 Telephone [facility]assigned, Provider COVID Screening Practice [address] [place] [id number] [place] [address] Social History Tobacco Use Types Packs/Day [...] documented as of this encounter Nursing Notes eJff Rome - 02/14/2020 10:54 AM CDT For your safety and ours, we???d like to screen for COVID-19 symptoms before scheduling your visit. Do you or a household member currently have: fever (>100), cough, sore throat, new loss of taste or smell, or shortness of breath? No In the last 14 days, have you had close contact with a person known to have COVID-19 or been instructed to self-isolate? No I will help schedule your visit now. [Box Chipper: Complete Primary Care [facility] decision tree and continue scheduling.] Jeff Rome documented in this encounter Plan of Treatment Not on filedocumented as of this encounter Visit Diagnoses Not on filedocumented in this encounter Care Teams Rug Sample Beveler Relationship Specialty Start Date End Date Marino Rubio PA-C PCP - General Physician Vice President Digital Strategist 07/18/19 [address] [place] [address] documented as of this encounter
--- OUTSIDE RECORDS SUMMARY | 2022-04-29 16:39 | XMS_ITS | Encounter Summary ---
:1985 Author Organization [facility] Address [address] [address] Care Team Providers Name Role Phone Marino Rubio PA-C Primary Care Provider Reason for Visit Reason Comments COVID Screening Encounter Details Date Type Department Care Team Description 02/27/2020 Telephone [facility] [place] Montserrat Rubio PA-C COVID Screening Practice [address] [facility] [address] [place] [address] [place], [place] [address] [phone] Social History Tobacco Use Types Packs/Day Years [...] documented as of this encounter Nursing Notes SaidGena - 02/27/2020 3:13 PM CDT For your safety and ours, we???d [...] I will help schedule your visit now. [International Trade Teacher: Complete Primary Care [facility] decision tree and continue scheduling.] Gena Jaime documented in this encounter Plan of Treatment Not on filedocumented as of this encounter Visit Diagnoses Not on filedocumented in this encounter Care Teams Accounts Payable Clerk Relationship Specialty Start Date End Date Marino Rubio PA-C PCP - General Physician Medical Lab Director 07/18/19 [address] [place] [address] documented as of this encounter
--- OUTSIDE RECORDS SUMMARY | 2022-04-29 16:39 | XMS_ITS | Encounter Summary ---
:1985 Author Organization [facility] Address [address] [address] Care Team Providers Name Role Phone Marino Rubio PA-C Primary Care Provider Encounter Details Date Type Department Care Team Description 10/24/2019 Notes/Orders [place] [address] Family Chetan Rubio PA-C [facility] [id number] [place] [id number] [place] [address] [place] [address] [phone] Social History Tobacco Use Types Packs/Day Years [...] on filedocumented in this encounter Care Teams Turbo Electric Operator Relationship Specialty Start Date End Date Marino Rubio PA-C PCP - General Physician Plodder Operator 07/18/19 [address] [place], [place] [id number] documented as of this encounter
--- OUTSIDE RECORDS SUMMARY | 2022-04-29 16:39 | XMS_ITS | Encounter Summary ---
:1985 Author Organization [facility] Address [address], [place] [address] Care Team Providers Name Role Phone Marino Rubio PA-C Primary Care Provider Encounter Details Date Type Department Care Team Description 11/19/2019 Notes/Orders [facility] [address] Infectious Disease [place] [address] [place] [address] [place] [address] [phone] (Wo rk) Social History Tobacco Use Types Packs/Day Years Used Date Smoking Tobacco: Never Smokeless Tobacco: Never Alcohol Use Standard Drinks/Week Comments Yes 0 (1 standard drink = 0.6 oz pure alcoho l) Sex Assigned at Date Recorded Not on file documented as of this encounter Progress Notes Georgia Hernandez - 11/19/2019 9:[address] Strong: Please arrange follow-up in 3-4 months and remind patient that he can do blood work prior to the visit. thanks [facility] to have patient call [phone] and set up appointment documented in this encounter Plan of Treatment Not on filedocumented as of this encounter Visit Diagnoses Not on filedocumented in this encounter Care Teams Bushing Press Operator Relationship Specialty Start Date End Date Marino Rubio PA-C PCP - General Physician Pattern Stamper 07/18/19 [address] [place] [address] documented as of this encounter
--- OUTSIDE RECORDS SUMMARY | 2022-04-29 16:39 | XMS_ITS | Encounter Summary ---
:1985 Author Organization [facility] Address [address], [place] [address] Care Team Providers Name Role Phone Marino Rubio PA-C Primary Care Provider Reason for Visit Reason Onset Date Comments Refill 06/08/2020 Encounter Details Date Type Department Care Team Description 06/08/2020 Refill [facility] [address] Infectious [place] [address] Stella pizarro, Refill Disease [address] [place] [address] [place], [place] [address] (Wo rk) Social History Tobacco Use Types [...] documented as of this encounter Nursing Notes Matilde Chua RN - 06/08/2020 1:55 PM CST Renewed medication per medication refill protocol. Requested Prescriptions Signed Prescriptions Disp Refills ??? inljqyxxhhi-etbcclfxwriqq-ikzethnib (BIKTARVY) 50-200-25 MG tablet 90 Tablet 1 Sig: Take 1 Tablet by mouth daily. Authorizing Provider: STELLA GIFFORD Ordering User: MATILDE CHUA ERY CUTTER documented in this encounter Plan of Treatment Not on filedocumented as of this encounter Visit Diagnoses Diagnosis HIV disease (HRC) Human immunodeficiency virus [HIV] disea se documented in this encounter Care Teams Founder And Chief Technical Officer Relationship Specialty Start Date End Date Marino Rubio PA-C PCP - General Physician Au Pair 07/18/19 [address] [place] [address] documented as of this encounter
--- OUTSIDE RECORDS SUMMARY | 2022-04-29 16:39 | XMS_ITS | Encounter Summary ---
:1985 Author Organization [employer] Address [address], [place] [address] Care Team Providers Name Role Phone Marino Rubio PA-C Primary Care Provider Encounter Details Date Type Department Care Team Description 04/17/2020 Lab Visit [facility] Transaminitis; [address] Erectile dysfunction, unspec ified erectile dysfunction type [place], [place] [address] Social History Tobacco Use [...] Name Priority Date/Time Associated Diagnosis Comme nts TESTOSTERONE,TOTAL Routine 04/17/2020 2:00 PM Erectile dysfunc tion, Results for this ,FREE & CDT unspecified erectile procedu re are in BIOAVAILABLE, dysfunction type the result s MALES section. LIVER Routine 04/17/2020 2:00 PM Transaminitis Results for this PANEL(HEPATIC CDT procedure are in FUNCTION PANEL) the results section. documented in this encounter Results Testosterone,Total,Free & Bioavailable, Males (04/17/2020 2:00 PM CDT) [facility] Method Time Signature Sex Hormone 16 16 - 70 04/20/2020 [facility] Binding Globulin nmol/L 10:30 AM CDT [facility] [place] B Adult Testosterone 440 200 - 745 04/20/2020 [facility] ng/dL 10:30 AM CDT CENTRAL LAB Testosterone, 12.7 3.1 - 04/20/2020 [facility] Free 12.8 10:30 AM CDT CEN[facility]AL [facility] ng/dL Testosterone, 297.6 71.7 - 04/20/2020 [facility] Bioavailable 300.0 10:30 AM CDT CEN[facility]AL [facility] ng/dL Specimen Anatomical Collection Method / Collection Time Recei meg Time (Source) Location / Volume Laterality Blood Venipuncture / 04/17/2020 2:00 04/17/2020 2:00 Unknown PM CDT PM CDT Marino Rubio PA-C LAB_1 Performing Organization Address City/State/ZIP Code Phon e Number [facility] [address] [address] (ABNORMAL) Hepatic Function Panel (04/17/2020 2:00 PM CDT) [facility] Method Time Signature Alkaline 62 40 - 150 04/17/2020 [facility] Phosphatase U/L 6:39 PM CDT CENTRAL LAB Bilirubin, 0.7 0.2 - 1.2 04/17/2020 [facility] Total mg/dL 6:39 PM CDT CENTRAL LAB Bilirubin, 0.3 0.0 - 0.5 04/17/2020 [facility] Direct mg/dL 6:39 PM CDT CEN[facility]AL [facility] AST (SGOT) 46 (H) 10 - 40 04/17/2020 [facility] U/L 6:39 PM CDT CEN[facility] ALT (SGPT) 88 (H) 0 - 55 04/17/2020 [facility] U/L 6:39 PM CDT CENTRAL [facility] Protein, Total 7.8 6.4 - 8.3 04/17/2020 [facility] g/dL 6:39 PM CDT CENTRAL LAB Albumin 4.6 3.5 - 5.0 04/17/2020 [facility] g/dL 6:39 PM CDT CENTRAL [facility] Specimen Anatomical Collection Method / Collection Time Recei meg Time (Source) Location / Volume Laterality Blood Venipuncture / 04/17/2020 2:00 04/17/2020 2:00 Unknown PM CDT PM CDT Pat Mishra MD LAB_1 Performing Organization Address City/State/ZIP Code Phon e Number [facility] [address] [address] documented in this encounter Visit Diagnoses Diagnosis Transaminitis Nonspecific elevation of levels of trans aminase or lactic acid dehydrogenase (LDH) Erectile dysfunction, unspecified erecti le dysfunction type documented in this encounter Care Teams Warehouse Team Leader Relationship Specialty Start Date End Date Marino Rubio PA-C PCP - General Physician Safety Belt Installer 07/18/19 [address] [place] [address] documented as of this encounter
--- OUTSIDE RECORDS SUMMARY | 2022-04-29 16:39 | XMS_ITS | Encounter Summary ---
:1985 Author Organization [employer] Address [address], [place] [address] Care Team Providers Name Role Phone Marino Rubio PA-C Primary Care Provider Reason for Visit Reason Comments Follow-up Encounter Details Date Type Department Care Team Description 08/20/2019 Telephone [facility] [address], Follow-up Infectious Disease [address] [place] [address] [place], [place] [phone] (Wo rk) Social History Tobacco Use Types Packs/Day Years Used Date Smoking Tobacco: Never Smokeless Tobacco: Never Alcohol Use Standard Drinks/Week Comments Yes 0 (1 standard drink = 0.6 oz pure alcoho l) Sex Assigned at Date Recorded Not on file documented as of this encounter Nursing Notes Minerva Hassan RN - 09/06/2019 1:12 PM CST Called Emre in which this case was given to Hodan in which I believe Hodan tried calling patient andmay not have heard back. Will speak with Hodan on Monday09/10/19. ING COORDINATOR Minerva Hassan RN - 08/21/2019 8:11 AM CST Printed this PN and put on [place] desk ING COORDINATOR Pat Miles MD - 08/20/2019 7:25 PM CST Could nursing ask either Hodan or Tamara in case mgt. to contact him when able to see if he qualifies for their services? Not emergent but he is interested in a manager administrative services for assistance with his [place] and [place] insurance, received some prior programs while living in [place] and has recently moved back to [place]. If he would be better managed at [facility] could refer there instead. Thanks! ING COORDINATOR documented in this encounter Plan of Treatment Not on filedocumented as of this encounter Visit Diagnoses Not on filedocumented in this encounter Care Teams Account Analyst Relationship Specialty Start Date End Date Marino Rubio PA-C PCP - General Physician Equipment Processor 07/18/19 [address] [place] [address] documented as of this encounter
--- OUTSIDE RECORDS SUMMARY | 2022-04-29 16:39 | XMS_ITS | Encounter Summary ---
:1985 Author Organization [facility] Address [address], [place] [address] Care Team Providers Name Role Phone Marino Rubio PA-C Primary Care Provider Encounter Details Date Type Department Care Team Description 02/28/2020 Lab Visit [facility] Transam[facility]; [address] [facility] Excessive sweating [place], [place] [address] Social History Tobacco Use [...] Name Priority Date/Time Associated Diagnosis Comme nts HEPATITIS C RNA Routine 02/28/2020 12:55 Transaminitis Results for this QUANTITATIVE BY TMA PM CDT procedur e are in the results section. LIVER PANEL(HEPATIC Routine 02/28/2020 12:55 Transaminitis Res ults for this FUNCTION PANEL) PM CDT procedure ar e in the results section. TSH, SENSITIVE (WITH Routine 02/28/2020 12:55 Excessive sweati ng Results for this REFLEX) PM CDT procedure are i n the results section. documented in this encounter Results Hepatitis C RNA Quant by TMA (02/28/2020 12:55 PM CDT) Patholo gist Method Time Signature HCV RNA, QN, <15 NOT NOT DETECTED 03/05/2020 [facility] REAL-TIME PCR DETECTED IU/mL 11:00 AM [facility] HCV RNA, QN, <1.18 NOT NOT DETECTED 03/05/2020 [facility] REAL-TIME PCR DETECTED Log IU/mL 11:00 AM [facility] Comment: This test was performed using Real-Time Polymerase Chain Reaction. Reportable Range: 15 IU/mL to 100,000,00 0 IU/mL (1.18 Log IU/mL to 8.00 Log IU/mL). ?? The analytical performance characteristi cs of this assay have been determined by [employer]. The modifications have not been cleared or approved by the FDA. This assay has been validated p ursuant to the CLIA regulations and is used for clinica l purposes. ?? For more information on this test, go to : http://education.Kickstarter/fa q/CCE64a3 (This link is being provided for informa tional/ educational purposes only.) [place], [facility], [address] [place] [address], [id number], MARIYA GOMEZ MD Specimen Anatomical Collection Method / Collection Time Recei meg Time (Source) Location / Volume Laterality Blood Venipuncture / 02/28/2020 12:55 0 Unknown PM CDT 12:55 PM CDT Pat Mishra MD LAB_1 Performing Organization Address City/State/ZIP Code Phon e Number [facility] [address] [facility]. [place], [place] [address] TSH with Free T4 (if TSH Abnormal) (02/28/2020 12:55 PM CDT) athologist Signature TSH, Reflex 0.87 0.30 - 02/28/2020 [facility] 4.50 7:22 PM CDT CEN[facility]AL [facility] uIU/mL Specimen Anatomical Collection Method / Collection Time Recei meg Time (Source) Location / Volume Laterality Blood Venipuncture / 02/28/2020 12:55 0 Unknown PM CDT 12:55 PM CDT [facility] CENTRAL LAB - 02/28/2020 7:22 PM CDT Lab will automatically reflex to Free T4 when TSH results are <0.30 uIU/mL or >4.50 mIU/mL. Pat Mishra MD LAB_1 Performing Organization Address [facility] Phon e Number [facility] [address] [address] (ABNORMAL) Hepatic Function Panel (02/28/2020 12:55 PM CDT) [facility] Method Time Signature Alkaline 54 40 - 150 02/28/2020 [facility] Phosphatase U/L 7:26 PM CDT CENTRAL LAB Bilirubin, 0.4 0.2 - 1.2 02/28/2020 [facility] Total mg/dL 7:26 PM CDT CENTRAL LAB Bilirubin, 0.2 0.0 - 0.5 02/28/2020 [facility] Direct mg/dL 7:26 PM CDT CENTRAL LAB AST (SGOT) 54 (H) 10 - 40 02/28/2020 [facility] U/L 7:26 PM CDT CENTRAL LAB ALT (SGPT) 92 (H) 0 - 55 02/28/2020 [facility] U/L 7:26 PM CDT CENTRAL LAB Protein, Total 7.4 6.4 - 8.3 02/28/2020 [facility] g/dL 7:26 PM CDT CEN[facility]AL LAB Albumin 4.2 3.5 - 5.0 02/28/2020 [facility] g/dL 7:26 PM CDT CENTRAL LAB Specimen Anatomical Collection Method / Collection Time Recei meg Time (Source) Location / Volume Laterality Blood Venipuncture / 02/28/2020 12:55 0 Unknown PM CDT 12:55 PM CDT Pat Mishra MD LAB_1 Performing Organization Address [facility] Phon e Number [facility] [address] [address] documented in this encounter Visit Diagnoses Diagnosis Transaminitis Nonspecific elevation of levels of trans aminase or lactic acid dehydrogenase (LDH) Excessive sweating Generalized hyperhidrosis documented in this encounter Care Teams Molder Floor Relationship Specialty Start Date End Date Marino Rubio PA-C PCP - General Physician Recreational Director 07/18/19 [address] [place] [address] documented as of this encounter
--- OUTSIDE RECORDS SUMMARY | 2022-04-29 16:39 | XMS_ITS | Encounter Summary ---
:1985 Author Organization [facility] Address [address], [place] [address] Care Team Providers Name Role Phone Marino Rubio PA-C Primary Care Provider Reason for Visit Reason Comments TIGHTNESS, CHEST Encounter Details Date Type Department Care Team Description 05/26/2020 Nurse Triage [place] [address] [facility] CHEMO [address] [facility] [address] [place] [address] [place] [address] [phone] (Wo rk) Social History Tobacco Use Types [...] documented as of this encounter Nursing Notes Tri Agarwal RN - 05/27/2020 11:14 AM CST Spoke with pt. States that he feels like his chest is tight. Unsure if related to allergies, asthma,anxiety etc. Tightness noted in front of his chest and tingling by sternum that goes to his back. Chest tightness is always there, but gets better and worse at times. Does have pain since end of March in his jaw, suspects TMJ into right ear drum and right side of teeth. Slight cough as well that is mildly productive. Has had the cough since at least February. Has had chest tightness since February aswell. Of note, COVID test was done and was negative. Chest tightness is not severe, more just bothersome. Mentions multiple times that he thinks symptoms may be a result of unmanaged anxiety as he can f eel anxiety running all over his body and he gets tingly. Denies any severe difficulty breathing. Problem list reviewed as related to this call. Reason for Disposition ??? Pain also in shoulder(s) or arm(s) or jaw Protocols used: CHEST [id number] ANICAL SHOP LABORER Paulette Rodriguez, RN - 05/26/2020 9:41 AM CST Left message for caller to return call to [phone]. When call is returned, please triage- pt noted chest tightness. Please also note medical history in regards to related diagnosis. ANICAL SHOP LABORER Ghazal Alves - 05/26/2020 9:26 AM CST Red Flag Symptoms Describe your symptoms (if pain, include location): Chest tightness Caller declined to follow Red Flag Guidelines. Additional comments (related to the above concern): Pt declined to speak with a nurse. Pt insisted on just scheduling appointment. Please advise For emergent symptoms: Please route and transfer to: Triage Pool (high priority) For urgent and routine symptoms: DO NOT enter a pool number. Please sign/close phone encounter ANICAL SHOP LABORER documented in this encounter Plan of Treatment Not on filedocumented as of this encounter Visit Diagnoses Not on filedocumented in this encounter Care Teams Wool Brusher Relationship Specialty Start Date End Date Marino Rubio PA-C PCP - General Physician Director Software Quality Assurance 07/18/19 [address] [place] [address] documented as of this encounter
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
--- OUTSIDE RECORDS SUMMARY | 2022-04-29 16:39 | XMS_ITS | Encounter Summary ---
:1985 Author Organization [facility] Address [address] [address] Care Team Providers Name Role Phone Marino Rubio PA-C Primary Care Provider Encounter Details Date Type Department Care Team Description 04/17/2020 Immunization [facility] [facility] Need fo r prophylactic Department vaccination and [address] [facility] inoculation against [place], [place] [address] influenza [phone] Social History Tobacco Use Types Packs/Day Years [...] as of this encounter Visit Diagnoses Diagnosis Need for prophylactic vaccination and in oculation against influenza documented in this encounter Care Teams Gang Pusher Relationship Specialty Start Date End Date Marino Rubio PA-C PCP - General Physician Certified Tower Climber 07/18/19 [address] [place] [address] documented as of this encounter
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
--- OUTSIDE RECORDS SUMMARY | 2022-04-29 16:39 | XMS_ITS | Encounter Summary ---
:1985 Author Organization [facility] Address [address], [place] [address] Care Team Providers Name Role Phone Marino Rubio PA-C Primary Care Provider Encounter Details Date Type Department Care Team Description 02/14/2020 Lab Visit [facility] HIV disease ([facility]); [address] [facility] Encounter for blood typing; [place], [place] [address] Transaminitis [phone] Social History Tobacco Use Types Packs/Day Years [...] Name Priority Date/Time Associated Diagnosis Comme nts HIV-1 RNA QUANT Routine 02/14/2020 1:08 HIV disease ([facility]) Resu lts for this PM CDT procedure are i n the results section. CBC AND DIFFERENTIAL Routine 02/14/2020 1:08 HIV disease ([facility]) Results for this PANEL PM CDT procedure are i n the results section. ABO GROUP Routine 02/14/2020 1:08 Encounter for blood Resul ts for this PM CDT typing procedure are i n the results section. TREPONEMA SCREEN Routine 02/14/2020 1:08 HIV disease ([facility]) Res ults for this PM CDT procedure are i n the results section. CREATININE / GFR Routine 02/14/2020 1:08 HIV disease ([facility]) Res ults for this PM CDT procedure are i n the results section. COMPLETE BLOOD Routine 02/14/2020 1:08 HIV disease ([facility]) Resul ts for this COUNT-W/DIFF PM CDT procedure are i n the results section. T CELL RATIO Routine 02/14/2020 1:08 HIV disease ([facility]) Results for this PM CDT procedure are i n the results section. HEPATITIS C ANTIBODY, Routine 02/14/2020 1:08 Transaminitis Re sults for this WITH REFLEX PM CDT procedure are i n the results section. ALT (SGPT) Routine 02/14/2020 1:08 HIV disease ([facility]) Results for this PM CDT procedure are i n the results section. AST Routine 02/14/2020 1:08 Transaminitis Results for this PM CDT procedure are i n the results section. BILIRUBIN, TOTAL Routine 02/14/2020 1:08 Transaminitis Results for this PM CDT procedure are i n the results section. ALKALINE PHOSPHATASE, Routine 02/14/2020 1:08 Transaminitis Re sults for this TOTAL PM CDT procedure are i n the results section. documented in this encounter Results Hepatitis C Virus [place] In-House (02/14/2020 1:08 PM CDT) [employer] Method Time Signature Hepatitis C Negative Negative 02/18/2020 [facility] Antibody (Non (Non 4:41 PM CDT CENTRAL [...] Organization Address City/State/ZIP Code Phon e Number [facility] [address] [address] Bilirubin Total (02/14/2020 1:08 PM CDT) Patholo gist Method Time Signature Bilirubin, 0.5 0.2 - 1.2 02/17/2020 [facility] Total mg/dL 11:45 AM CDT CENTRAL LAB Specimen Anatomical Collection Method / Collection Time Recei meg Time (Source) Location / Volume Laterality Blood Venipuncture / 02/14/2020 1:08 02/14/2020 1:08 Unknown PM CDT PM CDT Pat Mishra MD LAB_1 Performing Organization Address [facility] Phon e Number [facility] CENTRAL LAB [address] [address] Alkaline Phosphatase (02/14/2020 1:08 PM CDT) Patholo gist Method Time Signature Alkaline 54 40 - 150 02/17/2020 [facility] Phosphatase U/L 11:45 AM CDT CENTRAL LAB Specimen Anatomical Collection Method / Collection Time Recei meg Time (Source) Location / Volume Laterality Blood Venipuncture / 02/14/2020 1:08 02/14/2020 1:08 Unknown PM CDT PM CDT Pat Mishra MD LAB_1 Performing Organization Address [facility] Phon e Number [facility] [address] [address] (ABNORMAL) *AST (02/14/2020 1:08 PM CDT) P athologist Signature AST (SGOT) 83 (H) 10 - 40 02/17/2020 [facility] U/L 11:45 AM CDT CENTRAL LAB Specimen Anatomical Collection Method / Collection Time Recei meg Time (Source) Location / Volume Laterality Blood Venipuncture / 02/14/2020 1:08 02/14/2020 1:08 Unknown PM CDT PM CDT Pat Mishra MD LAB_1 Performing Organization Address [facility] Phon e Number [facility] CENTRAL [facility] [address] [address] (ABNORMAL) Complete Blood Count-W/Diff (02/14/2020 1:08 PM CDT) Analysis Performed At Patho logist Time Signature WBC 3.0 (L) 3.5 - 10.5 02/14/2020 [facility] x10(9)/L 1:14 PM CDT LAB RBC 4.91 4.32 - 02/14/2020 [facility] 5.72 1:14 PM CDT LAB x10(12)/L Hemoglobin 16.3 13.5 - 02/14/2020 [facility] 17.5 g/dL 1:14 PM CDT LAB HCT 47.0 38.8 - 02/14/2020 [facility] 50.0 % 1:14 PM CDT LAB MCV 95.7 80.0 - 02/14/2020 [facility] 100.0 fL 1:14 PM CDT LAB MCH 33.2 27.6 - 02/14/2020 [place] 33.3 pg 1:14 PM CDT LAB MCHC 34.7 31.5 - 02/14/2020 [place] 35.2 g/dL 1:14 PM CDT LAB RDW 11.7 (L) 11.9 - 02/14/2020 [place] 15.5 % 1:14 PM CDT LAB Platelets 234 150 - 450 02/14/2020 [place] x10(9)/L 1:14 PM CDT LAB Neutrophil 1.7 1.7 - 7.0 02/14/2020 [place] Absolute 10(9)/L 1:14 PM CDT LAB Lymphocyte 0.9 (L) 1.0 - 4.8 02/14/2020 [place] Absolute 10(9)/L 1:14 PM CDT LAB Monocytes 0.3 0.2 - 0.9 02/14/2020 [place] Absolute 10(9)/L 1:14 PM CDT LAB Eosinophil 0.1 0.0 - 0.5 02/14/2020 [place] Absolute 10(9)/L 1:14 PM CDT LAB Basophil 0.0 0.0 - 0.3 02/14/2020 [place] Absolute 10(9)/L 1:14 PM CDT LAB Immature Gran % 0.0 0.0 - 0.5 02/14/2020 [place] % 1:14 PM CDT LAB Specimen Anatomical Collection Method / Collection Time Recei meg Time (Source) Location / Volume Laterality Blood Venipuncture / 02/14/2020 1:08 02/14/2020 1:08 Unknown PM CDT PM CDT Pat Mishra MD LAB_1 Performing Organization Address City/State/ZIP Code Phon e Number [facility] [facility] [address] [place] [phone] ABO Blood Type (02/14/2020 1:08 PM CDT) athologist Signature ABO A 02/14/2020 5:44 [facility]OD PM CDT BANK Specimen Anatomical Collection Method / Collection Time Recei meg Time (Source) Location / Volume Laterality Blood Venipuncture / 02/14/2020 1:08 02/14/2020 1:08 Unknown PM CDT PM CDT Jessica White APRN, CNP LAB_1 Performing Organization Address City/State/ZIP Code Phon e Number [facility] [address] [place] [address] (ABNORMAL) T Cell Ratio (02/14/2020 1:08 PM CDT) athologist Signature CD3 (T Cells) 86.4 (H) 62.1 - 02/15/2020 [facility] % 85.0 % 10:25 AM CDT HOSPITAL CD3 (T Cells) 791 500-2,544 02/15/2020 [facility] Absolute /UL 10:25 AM CDT HOSPITAL CD3/CD4 (T 28.1 (L) 31.6 - 02/15/2020 [facility] King Cells) 65.7 % 10:25 AM CDT HOSPITAL % CD3/CD4 (T 257 (L) 337-1,687 02/15/2020 [facility] King Cells) /UL 10:25 AM CDT HOSPITAL Absolute CD3/CD8 (T 54.0 (H) 10.0 - 02/15/2020 [facility] Suppressor/Cyt 40.0 % 10:25 AM CDT HOSPITAL otoxic Cells) % CD3/CD8 (T 494 140 - 907 02/15/2020 [facility] Suppressor/Cyt /UL 10:25 AM CDT HOSPITAL otoxic Cells) Absolute CD4/CD8 Ratio 0.5 (L) 0.8 - 3.7 02/15/2020 [facility] 10:25 AM CDT HOSPITAL Specimen Anatomical Collection Method / Collection Time Recei meg Time (Source) Location / Volume Laterality Blood Venipuncture / 02/14/2020 1:08 02/14/2020 1:08 Unknown PM CDT PM CDT Pat Mishra MD LAB_1 Performing Organization Address City/[facility]/ZIP Code Phon e Number [address] [address] Treponema Screen (02/14/2020 1:08 PM CDT) [facility] Method Time Signature Treponema Screen 0.040 {s_co_ratio 02/17/2020 [facility] Result } 9:08 AM CDT LABORATORY Treponema Screen Non Non 02/17/2020 [facility] Interpretation Reactive Reactive 9:08 AM CDT LABORATORY Specimen Anatomical Collection Method / Collection Time Recei meg Time (Source) Location / Volume Laterality Blood Venipuncture / 02/14/2020 1:08 02/14/2020 1:08 Unknown PM CDT PM CDT Pat Mishra MD LAB_1 Performing Organization Address City/[facility]/ZIP Code Phon e Number [facility] [address] [place] [address] (ABNORMAL) HIV-1 RNA Quant by TMA (02/14/2020 1:08 PM CDT) [facility] Method [place] Signature HIV Interp Detected Not 02/18/2020 [facility] (A) Detected 12:58 PM CENTRAL LAB CDT HIV Copies <30 <30 02/18/2020 [facility] per/ml copies/mL 12:58 PM CENTRAL LAB CDT HIV Log <1.47 <1.47 log 02/18/2020 [facility] Copies/ml copies/mL 12:58 PM CENTRAL LAB CDT Specimen Anatomical Collection Method / Collection Time Recei meg Time (Source) Location / Volume Laterality Blood Venipuncture / 02/14/2020 1:08 02/14/2020 1:08 Unknown PM CDT PM CDT Narrative [facility] - 02/18/2020 12:58 PM CDT Test performed by Lay Out Helper Mediated Amplification. Pat Mishra MD LAB_1 Performing Organization Address City/[facility]/ZIP Code Phon e Number [facility] C[facility] LAB [address] [address] (ABNORMAL) Creatinine / GFR (02/14/2020 1:08 PM CDT) Patholo gist Method Time Signature Creatinine 0.72 (L) 0.73 - 02/14/2020 [facility] 1.18 6:04 PM CDT CENTRAL LAB mg/dL GFR, Estimated >60 >60 02/14/2020 [facility] mL/min/1. 6:04 PM CDT CENTRAL LAB 73m2 Specimen Anatomical Collection Method / Collection Time Recei meg Time (Source) Location / Volume Laterality Blood Venipuncture / 02/14/2020 1:08 02/14/2020 1:08 Unknown PM CDT PM CDT Pat Mishra MD LAB_1 Performing Organization Address [facility] Phon e Number [facility] C[facility]TRAL LAB [address] [place] [address] (ABNORMAL) ALT (SGPT) (02/14/2020 1:08 PM CDT) Analysis Performed At Patho logist Time Signature ALT (SGPT) 112 (H) 0 - 55 U/L 02/14/2020 [facility] 6:04 PM CDT CENTRAL LAB Specimen Anatomical Collection Method / Collection Time Recei meg Time (Source) Location / Volume Laterality Blood Venipuncture / 02/14/2020 1:08 02/14/2020 1:08 Unknown PM CDT PM CDT Pat Mishra MD LAB_1 Performing Organization Address [facility] Phon e Number [facility] C[facility]AL [facility] [address] [place] [address] documented in this encounter Visit Diagnoses Diagnosis HIV disease ([facility]) Human immunodeficiency virus [HIV] disea se Encounter for blood typing Transaminitis Nonspecific elevation of levels of trans aminase or lactic acid dehydrogenase (LDH) documented in this encounter Care Teams Pattern Chain Maker Supervisor Relationship Specialty Start Date End Date Marino Rubio PA-C PCP - General Physician Rug Frame Mounter 07/18/[address] [place] [address] documented as of this encounter
--- OUTSIDE RECORDS SUMMARY | 2022-04-29 16:39 | XMS_ITS | Encounter Summary ---
:1985 Author Organization [facility] Address [address], [place] [address] Care Team Providers Name Role Phone Marino Rubio PA-C Primary Care Provider Encounter Details Date Type Department Care Team Description 05/15/2020 Notes/Orders [facility] [address]ogie, RN Infectious Disease [address] [place] [address] Social History Tobacco Use Types Packs/Day Years [...] on filedocumented in this encounter Care Teams Rubber Production Machine Operator Relationship Specialty Start Date End Date Marino Rubio PA-C PCP - General Physician Air Cargo Ground Crew Supervisor 07/18/19 [address] [place] [address] documented as of this encounter
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
--- OUTSIDE RECORDS SUMMARY | 2022-04-29 16:39 | XMS_ITS | Encounter Summary ---
:1985 Author Organization [facility] Address [address] [address] Care Team Providers Name Role Phone Marino Rubio PA-C Primary Care Provider Reason for Referral Consult/Transfer Care (Routine) - Incomplete Specialty Diagnoses / Procedures Referred By Contact Refer red To Contact Diagnoses Anxiety (HRC) Persistent depressive disorder (HRC) Marino Rubio PA-C [address] [place] [address] Referral ID Status Reason Start Date Expiration Date Visits V isits Requested Authorized [id number] Incomplete 08/21/2019 11/19/2020 1 1 Scheduling Instructions Your provider has recommended an appoint ment with Behavioral Health. You may call [phone] to schedule your appointmen t. This recommended service/s may not be covered by your health plan (health insu amelia). To find out your specific benefit coverage, please call the number on your insurance card.?? Please note that in order to maintain access for all patients, [facility] does have a late cancellation policy. In order to avoid being restrict ed from scheduling future appointments in Behavioral Health you will need to cance l at least 24 hours in advance. We request you that you arrive 30 minutes before yo ur first appointment to complete paperwork. GATHERER Reason for Visit Reason Comments Refill escitalopram oxalate (LEXAPR O) 20 MG tablet [Pharmacy Med Name: ESCITALOPRAM OXALATE 20MG TB] Encounter Details Date Type Department Care Team Description 08/17/2019 Refill [facility] Ramiro, Marino J, Refill (escitalopram Medicine CHEMO oxalate (LEXAPRO) 20 MG [id number] [id number] tablet [Pharmacy Med [place], [place] [address] Name: ESCITALOPRAM [id number] OXALATE 20MG TB]) [phone] Social History Tobacco Use Types Packs/Day Years Used Date Smoking Tobacco: Never Smokeless Tobacco: Never Alcohol Use Standard Drinks/Week Comments Yes 0 (1 standard drink = 0.6 oz pure alcoho l) Sex Assigned at Date Recorded Not on file documented as of this encounter Progress Notes Marino Rubio PA-C - 08/21/2019 12:34 PM BIT GATHERER Addended by: MARINO RUBIO on: 08/21/2019 12:34 PM Modules accepted: Orders GATHERER documented in this encounter Nursing Notes Mara Vu, RN - 08/20/2019 10:45 AM CST Further Assistance Needed on Refill from Clinician RN reviewed. Signed order needed. Requested medication needs an order signed by an authorized prescriber. Last OV 07/25/19 Review pended order for accuracy and sign if appropriate Requested Prescriptions Pending Prescriptions Disp Refills ??? escitalopram oxalate (LEXAPRO) 20 MG tablet [Pharmacy Med Name: ESCITALOPRAM OXALATE 20MG TB] 90Tablet 3 Sig: TAKE ONE TABLET BY MOUTH EVERY DAY GATHERER Elise Alves RN - 08/20/2019 8:40 AM CST Further Assistance Needed on Refill from Clinician RN reviewed. Medication ordered for short term. Please advise if intermediate supply is appropriate Patient last seen 07/25/2019 Last ordered by MAHENDRA PACHECO #[id number] Review pended order for accuracy and sign if appropriate, Document if appointment is needed for further refills and Patient is expecting call back Requested Prescriptions Pending Prescriptions Disp Refills ??? escitalopram oxalate (LEXAPRO) 20 MG tablet [Pharmacy Med Name: ESCITALOPRAM OXALATE 20MG TB] 90Tablet 0 Sig: TAKE ONE TABLET BY MOUTH EVERY DAY GATHERER Quinn Ellis - 08/20/2019 8:19 AM CST Patient is calling in and stating he is out of his medication today 08-20-19. Needs his refill that has been previously sent in and requested on 08-17-19 by pharmacy patient states. Please approve and send to his pharmacy today. Please update and advise patient. Thank you. GATHERER Interface, Out Surescripts Prov Query - 08/17/2019 12:10 PM CST escitalopram oxalate (LEXAPRO) 20 MG tablet [Pharmacy Med Name: ESCITALOPRAM OXALATE 20MG TB] Medication started: 07/18/2019 Last ordered by MAHENDRA PACHECO (30 days ago) QTY: 30, Refills: 0, Sig: take 1 tablet bymouth daily. (changed but equivalent) -> A qualifying visit was not found within the last 2 years. Last qualifying visit: None (A recent visit (in Family Practice) was found) Next scheduled visit: None SBP: 123 mm Hg on 07/25/2019 DBP: 73 mm Hg on 07/25/2019 Powered by [employer], Reference: [id number], 08/17/2019 12:10:33 PM BIT GATHERER, Pool: KEVIN REFILL ([id number]) GATHERER documented in this encounter Plan of Treatment Scheduled Referrals Name Type Priority Associated Diagnoses Order S rodriguez Behavioral Health Referral Routine Anxiety Ordered: 08/21/2019 Persistent depressive disorder documented as of this encounter Visit Diagnoses Diagnosis Anxiety (HRC) - Primary Anxiety state, unspecified Persistent depressive disorder (HRC) documented in this encounter Care Teams Level Glass Vial Filler Relationship Specialty Start Date End Date Marino Rubio PA-C PCP - General Physician Show Design Supervisor 07/18/19 [id number] [place] [address] documented as of this encounter
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
--- OUTSIDE RECORDS SUMMARY | 2022-04-29 16:39 | XMS_ITS | Encounter Summary ---
:1985 Author [facility] Address [address] [address] Care Team Providers Name Role Phone Marino Rubio PA-C Primary Care Provider Encounter Details Date Type Department Care Team Description 04/14/2020 Notes/Orders [place] [address] Marino Rubio, Erectile dysfunction, Family Medicine CHEMO unspecified erectile [address] [facility] [address] [facility] dysfunction type [place], [place] (Primary Dx) [id number] [phone] Social History Tobacco Use Types Packs/Day Years [...] Erectile dysfunction, unspecified erecti le dysfunction type - Primary documented in this encounter Care Teams Cop Examiner Relationship Specialty Start Date End Date Marino Rubio PA-C PCP - General Physician Trawl Net Maker 07/18/19 [address] [place] [address] documented as of this encounter
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
--- OUTSIDE RECORDS SUMMARY | 2022-04-29 16:40 | XMS_ITS | Encounter Summary ---
:1985 Author Organization [employer] Address [address], [place] [address] Care Team Providers Name Role Phone Marino Rubio PA-C Primary Care Provider Reason for Visit Reason Onset Date Comments Refill 07/18/2019 Encounter Details Date Type Department Care Team Description 07/18/2019 Refill [facility] [employer] camilone Marino Rubio PA-C Refill [address] [facility]. [address] [place] [address] [place] [address] [phone] (Wo rk) Social History Tobacco Use Types Packs/Day Years Used Date Smoking Tobacco: Never Smokeless Tobacco: Never Alcohol Use Standard Drinks/Week Comments Yes 0 (1 standard drink = 0.6 oz pure alcoho l) Sex Assigned at Date Recorded Not on file documented as of this encounter Nursing Notes Cristin Figueroa RN - 07/18/2019 12:13 PM CST Per review, last RX 01/23/19 at [facility] with PCP. Copied Plan here--- Plan: 1). Regular icing regimen to back of scalp, and regular anti-inflammatory such as Ibuprofen 2). For anxiety: Will try adding Buspar 10mg twice daily, continue current regimen. 3). For sinus symptoms: Continue allergy medication for now with decongestants. Follow up with acuteworsening of sinus pain, pressure, drainage. 4). For skin issues: Will try Doxycycline 100mg twice daily for 10 days. (Hold Amoxicillin while on Doxycycline). 4). Follow up with any other acute issues or concerns. ?? Last OV with PCP: 01/23/19 MOL[facility] documented in this encounter Plan of Treatment Not on filedocumented as of this encounter Visit Diagnoses Not on filedocumented in this encounter Care Teams Atlassian Administrator Relationship Specialty Start Date End Date Marino Rubio PA-C PCP - General Physician Garment Cutter 07/18/19 [address] [place] [address] documented as of this encounter
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
--- OUTSIDE RECORDS SUMMARY | 2022-04-29 16:40 | XMS_ITS | Encounter Summary ---
:1985 Author Organization [employer] Address [address] [address] Care Team Providers Name Role Phone Eamon Alves MD Primary Care Provider Reason for Visit Reason Comments LAB RESULTS Encounter Details Date Type Department Care Team Description 12/11/2018 Telephone [facility] [address], LAB RESULTS Infectious Disease [address] [place] [address] [place], [place] [id number] (Wo rk) Social History Tobacco Use Types Packs/Day Years Used Date Smoking Tobacco: Never Smokeless Tobacco: Never Alcohol Use Standard Drinks/Week Comments Yes 0 (1 standard drink = 0.6 oz pure alcoho l) Sex Assigned at Date Recorded Not on file documented as of this encounter Nursing Notes Minerva Hassan RN - 12/21/2018 10:06 AM CDT Lm for patient to call us back Minerva Hassan RN - 12/14/2018 9:03 AM CDT LM for patient to call us back Yue Cruz RN - 12/12/2018 2:24 PM CDT Patient contacted and notified of below. He is going to check with his insurance regarding medication coverage out of state and contact the clinic. Pat Miles MD - 12/12/2018 2:19 PM CDT Clotrimazole Rx pended if he would like it sent to a pharmacy near where he is staying in [place] - would need to put in the info and sign the Rx. Or he may still have some clotrimazole at home. He should use it for a week or at least a few days beyond when all of his tongue symptoms resolve. He should call if any other new symptoms. Yue Cruz RN - 12/12/2018 12:38 PM CDT Patient returning call and notified of below. He was very glad to hear he could stop taking Bactrim.He states that he developed sores on his tongue and thrush because of the medication. He states thathis body does not react well to antibiotics. He states in the past he was given clotrimazole for antibiotics when needed. Yue Cruz RN - 12/12/2018 8:45 AM CDT LM to call clinic. Pat Miles MD - 12/11/2018 8:23 PM CDT Please let Mr. Marroquin know that his CD4 T cells are much better at 227 - the prior 162 number from last week was likely falsely low . He can stop the preventative medication bactrim since the CD4 cells are over 200 and he is at low risk for pneumonia due to PCP. Would also let him know his measles antibody level was not high enough to suggest that he is immune.However we expect immunity to develop over a few weeks or month after the vaccine so we can considerrechecking this at his next visit or in a couple of months. This result is likely more reflective ofhis immune status to measles before he got e repeat vaccine. t Since his CD4 cells are over 200 he is at low risk for any complications from the measles vaccine. He should let us know if questions/concerns. documented in this encounter Plan of Treatment Not on filedocumented as of this encounter Visit Diagnoses Not on filedocumented in this encounter Care Teams Facility Supervisor Relationship Specialty Start Date End Date Eamon Alves MD PCP - General 10/23/10 07/17/[address] [address] documented as of this encounter
--- OUTSIDE RECORDS SUMMARY | 2022-04-29 16:40 | XMS_ITS | Encounter Summary ---
:1985 Author Organization [employer] Address [address] [address] Care Team Providers Name Role Phone Eamon Alves MD Primary Care Provider Reason for Visit Reason Comments Other Encounter Details Date Type Department Care Team Description 06/24/2019 Telephone [facility] [address], Other Infectious Disease [address] [place] [address] [place] [address] (Wo rk) Social History Tobacco Use Types Packs/Day Years Used Date Smoking Tobacco: Never Smokeless Tobacco: Never Alcohol Use Standard Drinks/Week Comments Yes 0 (1 standard drink = 0.6 oz pure alcoho l) Sex Assigned at Date Recorded Not on file documented as of this encounter Nursing Notes Soheila Winn RN - 06/25/2019 8:41 AM CST Pt informed. SPECIALIST Pat Miles MD - 06/24/2019 8:18 PM CST Orders signed, he can do labs before the visit if he'd like. SPECIALIST Amanda Salas RN - 06/24/2019 10:47 AM CST Pt calling and states that he has had an ongoing cold. He was in [place] and was seen there and had influenza and other testing done that was all negative. Pt has an upcoming appt this week. Pt is feeling better. Pt hasn't had his HIV tests done. Pended routine labs for pt. Pt would like a call back. Pt P)[phone] SPECIALIST documented in this encounter Plan of Treatment Not on filedocumented as of this encounter Results Chlamydia and GC, Urine STD (06/27/2019 12:28 PM ASW SPECIALIST) [facility] [employer] Method Time Signature Chlamydia Not Not 06/27/2019 [facility] Trachomatis Detected Detected 8:28 PM ASW SPECIALIST CENTRAL LAB STD N. gonorrhoeae Not Not 06/27/2019 [facility] STD Detected Detected 8:28 PM ASW SPECIALIST CENTRAL LAB Specimen Anatomical Collection Method Collection Time Receive d Time (Source) Location / / Volume Laterality Urine Non-blood 06/27/2019 12:28 06/27/2019 Collection / PM ASW SPECIALIST 12:29 PM ASW SPECIALIST Unknown Narrative [facility] CENTRAL LAB - 06/27/2019 8:28 PM ASW SPECIALIST Test performed by Molecular Detection Pat Mishra MD LAB_1 Performing Organization Address City/[facility]/ZIP Code Phon e Number [facility] C[facility]TRAL LAB [address] [address] Treponema Screen (06/27/2019 12:20 PM ASW SPECIALIST) [facility] [employer] Method Time Signature Treponema Screen 0.061 {s_co_ratio 06/28/2019 [facility] Result } 9:34 AM ASW SPECIALIST LABORATORY Treponema Screen Non Non 06/28/2019 [facility] Interpretation Reactive Reactive 9:34 AM ASW SPECIALIST LABORATORY Specimen Anatomical Collection Method / Collection Time Recei meg Time (Source) Location / Volume Laterality Blood Venipuncture / 06/27/2019 12:20 9 Unknown PM ASW SPECIALIST 12:20 PM ASW SPECIALIST Pat Mishra MD LAB_1 Performing Organization Address City/State/ZIP Code Phon e Number [facility] [address] [place] [address] (ABNORMAL) HIV-1 RNA Quant by TMA (06/27/2019 12:20 PM ASW SPECIALIST) Patholo gist Method Time Signature HIV Interp Detected Not 07/01/2019 [facility] (A) Detected 11:38 AM CENTRAL LAB ASW SPECIALIST HIV Copies <30 <30 07/01/2019 [facility] per/ml copies/mL 11:38 AM CENTRAL LAB ASW SPECIALIST HIV Log <1.47 <1.47 log 07/01/2019 [facility] Copies/ml copies/mL 11:38 AM CENTRAL LAB ASW SPECIALIST Specimen Anatomical Collection Method / Collection Time Recei meg Time (Source) Location / Volume Laterality Blood Venipuncture / 06/27/2019 12:20 9 Unknown PM ASW SPECIALIST 12:20 PM ASW SPECIALIST Narrative [facility] CENTRAL LAB - 07/01/2019 11:38 AM ASW SPECIALIST Test performed by [facility] Administrator Mediated Amplification. Pat Mishra MD LAB_1 Performing Organization Address City/State/ZIP Code Phon e Number [facility] [address] [address] (ABNORMAL) T Cell Ratio (06/27/2019 12:20 PM ASW SPECIALIST) P athologist Signature CD3 (T Cells) 89.1 (H) 62.1 - 06/28/2019 [facility] % 85.0 % 10:25 AM [facility] CD3 (T Cells) 1,049 500-2,544 06/28/2019 [facility] Absolute /UL 10:25 AM [facility] CD3/CD4 (T 24.0 (L) 31.6 - 06/28/2019 [facility] Keldron Cells) 65.7 % 10:25 AM [facility] % CD3/CD4 (T 282 (L) 337-1,687 06/28/2019 [facility] Keldron Cells) /UL 10:25 AM [facility] Absolute CD3/CD8 (T 61.3 (H) 10.0 - 06/28/2019 [facility] Suppressor/Cyt 40.0 % 10:25 AM [facility] otoxic Cells) % CD3/CD8 (T 722 140 - 907 06/28/2019 [facility] Suppressor/Cyt /UL 10:25 AM [facility] otoxic Cells) Absolute CD4/CD8 Ratio 0.4 (L) 0.8 - 3.7 06/28/2019 [facility] 10:25 AM ASW SPECIALIST HOSPITAL Specimen Anatomical Collection Method / Collection Time Recei meg Time (Source) Location / Volume Laterality Blood Venipuncture / 06/27/2019 12:20 9 Unknown PM ASW SPECIALIST 12:20 PM ASW SPECIALIST Pat Mishra MD LAB_1 Performing Organization Address [facility]/ZIP Code Phon e Number [address] [address] (ABNORMAL) Creatinine (06/27/2019 12:20 PM ASW SPECIALIST) Patholo gist Method Time Signature Creatinine 0.71 (L) 0.73 - 06/27/2019 [facility] 1.18 3:44 PM ASW SPECIALIST CENTRAL LAB mg/dL GFR, Estimated >60 >60 06/27/2019 [facility] mL/min/1. 3:44 PM ASW SPECIALIST CENTRAL LAB 73m2 GFR, Est If >60 >60 06/27/2019 [facility] mL/min/1. 3:44 PM ASW SPECIALIST CENTRAL LAB Greek 73m2 Specimen Anatomical Collection Method / Collection Time Recei meg Time (Source) Location / Volume Laterality Blood Venipuncture / 06/27/2019 12:20 9 Unknown PM ASW SPECIALIST 12:20 PM ASW SPECIALIST Pat Mishra MD LAB_1 Performing Organization Address [facility] Phon e Number [facility] [address] [address] ALT - Alanine Aminotransferase (06/27/2019 12:20 PM ASW SPECIALIST) P athologist Signature ALT (SGPT) 33 0 - 55 U/L 06/27/2019 [facility] 3:44 PM ASW SPECIALIST CENTRAL LAB Specimen Anatomical Collection Method / Collection Time Recei meg Time (Source) Location / Volume Laterality Blood Venipuncture / 06/27/2019 12:20 9 Unknown PM ASW SPECIALIST 12:20 PM ASW SPECIALIST Pat Mishra MD LAB_1 Performing Organization Address [facility]/ZIP Code Phon e Number [facility] [address] [address] documented in this encounter Visit Diagnoses Diagnosis Asymptomatic HIV infection ([facility]) - Prima ry Asymptomatic human immunodeficiency viru s (HIV) infection status Screen for STD (sexually transmitted dis ease) Screening examination for venereal disea se documented in this encounter Care Teams Manager Front Office Relationship Specialty Start Date End Date Eamon Alves MD PCP - General 10/23/10 07/17/[address] [address] documented as of this encounter
--- OUTSIDE RECORDS SUMMARY | 2022-04-29 16:40 | XMS_ITS | Encounter Summary ---
:1985 Author Organization [employer] Address [address] [address] Care Team Providers Name Role Phone Eamon Alves MD Primary Care Provider Encounter Details Date Type Department Care Team Description 10/11/2018 Lab Visit [facility] 3850 HIV (riya n immunodeficiency Laboratory virus infection) ([facility]) [address] [place], [place] [address] Social History Tobacco Use Types Packs/Day Years Used Date Smoking Tobacco: Never Smokeless Tobacco: Never Alcohol Use Standard Drinks/Week Comments Yes 0 (1 standard drink = 0.6 oz pure alcoho l) Sex Assigned at Date Recorded Not on file documented as of this encounter Plan of Treatment Not on filedocumented as of this encounter Procedures Procedure Name Priority Date/Time Associated Diagnosis Comme nts URINALYSIS Routine 10/11/2018 11:06 HIV (human Results for ROUTINE(MICRO IF POS) AM CDT immunodeficiency vi elliot this procedure infection) ([facility]) are in the results section. HIV GENOTYPE Routine 10/11/2018 11:02 HIV (human Results for AM CDT immunodeficiency virus this procedure infection) ([facility]) are in the results section. LAB LYMPHOCYTES Routine 10/11/2018 11:02 HIV (human Results for PROFILE SUBSETS T3 T4 AM CDT immunodeficiency vi elliot this procedure T8 infection) ([facility]) are in the results section. HEPATITIS A ANTIBODY, Routine 10/11/2018 11:02 HIV (human Re sults for IGG AM CDT immunodeficiency virus this procedure infection) ([facility]) are in the results section. TOXOPLASMA GONDII IGG Routine 10/11/2018 11:02 HIV (human Re sults for AB AM CDT immunodeficiency virus this procedure infection) ([facility]) are in the results section. GLUCOSE-6 PHOSPHATE Routine 10/11/2018 11:02 HIV (human Resu lts for DEHYDROGENASE AM CDT immunodeficiency virus this procedure infection) ([facility]) are in the results section. CYTOMEGALOVIRUS IGG Routine 10/11/2018 11:02 HIV (human Resu lts for ANTIBODY AM CDT immunodeficiency virus this procedure infection) ([facility]) are in the results section. HEPATITIS B BOBBY, Routine 10/11/2018 11:02 Results for QUANTITATIVE AM CDT this procedure are in the results section. T SPOT TB TEST Routine 10/11/2018 11:02 HIV (human Results f or AM CDT immunodeficiency virus this procedure infection) ([facility]) are in the results section. COMPLETE BLOOD Routine 10/11/2018 11:02 HIV (human Results f or COUNT-W/DIFF AM CDT immunodeficiency virus this procedure infection) ([facility]) are in the results section. DIFFERENTIAL Routine 10/11/2018 11:02 Results for AM CDT this procedure are in the results section. V ZOSTER IMMUNE Routine 10/11/2018 11:02 HIV (human Results for STATUS, IGG AM CDT immunodeficiency virus this procedure infection) ([facility]) are in the results section. HGB A1C Routine 10/11/2018 11:02 HIV (human Results for AM CDT immunodeficiency virus this procedure infection) ([facility]) are in the results section. CREATININE / GFR Routine 10/11/2018 10:48 HIV (human Results for AM CDT immunodeficiency virus this procedure infection) ([facility]) are in the results section. LIVER PANEL(HEPATIC Routine 10/11/2018 10:48 HIV (human Resu lts for FUNCTION PANEL) AM CDT immunodeficiency virus th is procedure infection) ([facility]) are in the results section. documented in this encounter Results (ABNORMAL) Urinalysis Routine(Micro If Pos) (10/11/2018 11:06 AM CDT) [facility] Method Time Signature Urine Type URINE:clean PN SOFT cat Turbidity Clear Clear PN SOFT U BILI Negative Negative PN SOFT Blood Urine Negative Neg - Trace PN SOFT Glucose, Negative Neg-30 PN SOFT Qualitative U mg/dL Ketones Trace (A) Negative PN SOFT Leukocyte Negative Negative PN SOFT Esterase Urine Nitrite Urine Negative Negative PN SOFT pH Urine 7.5 5.0 - 8.0 PN SOFT Protein Urine Negative Neg - Trace PN SOFT mg/dL U Specific <=1.005 1.005 - PN SOFT [place] 1.030 Urobilinogen Negative Negative PN SOFT Urine Eu/dL Specimen Anatomical Collection Method Collection Time Receive d Time (Source) Location / / Volume Laterality 10/11/2018 11:06 10/11/2018 AM CDT 11:05 AM CDT Narrative PN SOFT - 10/11/2018 11:14 AM CDT Performed at [facility], [address] [place] [address] CLIA number [id number] Pat Mishra MD LAB_1 Performing Organization Address [facility] Phon e Number PN SOFT [address] [place] [address] Differential (10/11/2018 11:02 AM CDT) P athologist Signature Absolute 3.0 1.8 - 8.0 PN SOFT Neutrophils k/cmm Absolute 1.6 1.1 - 4.0 PN SOFT Lymphocytes k/cmm Absolute 0.4 0.2 - 0.8 PN SOFT Monocytes k/cmm Absolute 0.0 0.0 - 0.5 PN SOFT Eosinophils k/cmm Absolute 0.0 0.0 - 0.2 PN SOFT Basophils k/cmm Immature 0.2 0.0 - 0.5 PN SOFT Granulocytes % Specimen Anatomical Collection Method Collection Time Receive d Time (Source) Location / / Volume Laterality 10/11/2018 11:02 10/11/2018 AM CDT 11:02 AM CDT Narrative PN SOFT - 10/11/2018 11:09 AM CDT Performed at [facility], [address] [place] [address] CLIA number [id number] Pat Mishra MD LAB_1 Performing Organization Address [facility] Phon e Number PN SOFT [address] [place] [address] Hepatitis B Bobby, Quantitative (10/11/2018 11:02 AM CDT) Patholo gist Method Time Signature Hep B Surf Ab Reactive Nonreactive PN SOFT Hep B Ab Quant 814 mIU/mL PN SOFT Specimen Anatomical Collection Method Collection Time Receive d Time (Source) Location / / Volume Laterality 10/11/2018 11:02 10/11/2018 AM CDT 12:13 PM CDT Narrative PN SOFT - 10/11/2018 1:01 PM CDT Performed at [address] [address] CLIA number [id number] Pat Mishra MD LAB_1 Performing Organization Address [facility] Phon e Number PN SOFT [address] [place] [address] Hemoglobin A1C Glycosylated (10/11/2018 11:02 AM CDT) P athologist Signature HGB A1C 5.4 4.0 - 5.6 % PN SOFT Specimen Anatomical Collection Method Collection Time Receive d Time (Source) Location / / Volume Laterality 10/11/2018 11:02 10/11/2018 AM CDT 12:11 PM CDT Narrative PN SOFT - 10/11/2018 3:24 PM CDT Performed at [address] [address] CLIA number [id number] Pat Mishra MD LAB_1 Performing Organization Address [facility] e Number PN SOFT [address] [place] [address] V Zoster Immune Status, IgG (10/11/2018 11:02 AM CDT) [facility] Time Signature Varicella Zoster Immune Immune PN SOFT Intepretation Varicella Zoster 2,791.0 >165.0 IV PN SOFT Units Comment: The magnitude of the measured result, ab ove the cutoff, is not indicative of the amount of antibody present. Specimen Anatomical Collection Method Collection Time Receive d Time (Source) Location / / Volume Laterality 10/11/2018 11:02 10/11/2018 AM CDT 12:12 PM CDT Narrative PN SOFT - 10/15/2018 12:01 PM CDT Performed at [address] [address] CLIA number [id number] Pat Mishra MD LAB_1 Performing Organization Address [facility] Phon e Number PN SOFT [address] [place] [address] Glucose-6 Phosphate Dehydrogenase (10/11/2018 11:02 AM CDT) Analysis Performed At Patho logist Time Signature [id number] 11.0 9.9 - 16.6 PN SOFT e Dehydrogenase U/g Hb Comment: Performed by [facility], [address] [place] [address] [email or web address], Richard Escobar MD - Lab . Director Specimen Anatomical Collection Method Collection Time Receive d Time (Source) Location / / Volume Laterality 10/11/2018 11:02 10/11/2018 AM CDT 12:12 PM CDT Narrative PN SOFT - 10/12/2018 8:15 PM CDT Performed at [facility] [address] [place] [address] CLIA number [id number] Pat Mishra MD LAB_1 Performing Organization Address [facility] Phon e Number PN SOFT [address] [place] [address] (ABNORMAL) Lymphocytes Profile Subsets T3 T4 T8 (10/11/2018 11:02 AM CDT) P athologist Signature T3% / CD3% 87.3 (H) 62.1 - 85.0 PN SOFT % Comment: CLIA Number [id number] T3/CD3 Absolute 1,408 500 - 2,544 /ul PN SOFT Comment: CLIA Number [id number] T4% / CD4 Cd4% 19.2 (L) 31.6 - 65.7 % PN SOFT Comment: CLIA Number [id number] T4/CD4 Absolute 309 (L) 337 - 1,687 /ul PN SOFT Comment: CLIA Number [id number] T8% / CD8 Cd8% 65.7 (H) 10.0 - 40.0 % PN SOFT Comment: CLIA Number [id number] T8/CD8 Absolute 1,059 (H) 140 - 907 /ul PN SOFT Comment: CLIA Number [id number] CD4/CD8 Ratio 0.3 (L) 0.8 - 3.7 PN SOFT Comment: Performed at [facility] , [address] [place] [address] CLIA Number [id number] Specimen Anatomical Collection Method Collection Time Receive d Time (Source) Location / / Volume Laterality 10/11/2018 11:02 10/11/2018 AM CDT 12:06 PM CDT Pat Mishra MD LAB_1 Performing Organization Address [facility] Phon e Number PN SOFT [address] [place] [address] T SPOT TB Test (10/11/2018 11:02 AM CDT) P athologist Signature T SPOT TB Negative Negative PN SOFT Nil (Neg) 0 <5 PN SOFT Control Spot Count Panel A Spot 0 <5 PN SOFT Count Panel B Spot 0 <5 PN SOFT Count Positive >20 PN SOFT Control Spot Count Comment: Testing for latent TB is done via the T- Spot assay, which is an FDA approved Interferon Gamma Rele ase Assay (IGRA). When compared to QuantiFeron TB Gold, mu ltiple studies show a more favorable sensitivity, similar sp ecificity, and less boderline results with the T-Spot TB Anaya t. Specimen Anatomical Collection Method Collection Time Receive d Time (Source) Location / / Volume Laterality 10/11/2018 11:02 10/11/2018 AM CDT 12:06 PM CDT Narrative PN SOFT - 10/15/2018 2:50 PM CDT Performed at [facility], [address] [place] [address] CLIA number [id number] Pat Mishra MD LAB_1 Performing Organization Address [facility] Phon e Number PN SOFT [address] [place] [address] (ABNORMAL) Cytomegalovirus IgG Antibody (10/11/2018 11:02 AM CDT) Patholo gist Method Time Signature Cytomegalovirus Positive Negative PN SOFT IgG Antibody (A) Comment: Presence of detectable CMV IgG antibodie s. A positive result generally indicates either recent or pas t exposure to the CMV. Specimen Anatomical Collection Method Collection Time Receive d Time (Source) Location / / Volume Laterality 10/11/2018 11:02 10/11/2018 AM CDT 12:13 PM CDT Narrative PN SOFT - 10/11/2018 2:09 PM CDT Performed at [facility], [address] [place] [address] CLIA number [id number] Pat Mishra MD LAB_1 Performing Organization Address City/State/ZIP Code Phon e Number PN SOFT [address] [place] [address] Toxoplasma gondii IgG Ab (10/11/2018 11:02 AM CDT) athologist Signature Toxoplasma <3.0 IU/mL PN SOFT Gondii IgG Comment: INTERPRETIVE INFORMATION: Toxoplasma Ab, IgG ??7.1 IU/mL or less....... Not Detected ??7.2-8.7 IU/mL .......... Indeterminat e-Repeat testing in ? 10-14 days may be helpful. ??8.8 IU/mL or greater ... Detected The best evidence for current infection is a significant change on two appropriately timed specim ens, where both tests are done in the same laboratory at the same time. This test should not be used for blood d onor screening, associated re-entry protocols, or for sc reening Human Cell, Tissues and Cellular and Tissue-Based Pr oducts (HCT/P). The magnitude of the measured result is not indicative of the amount of antibody present. Performed by [facility], [address] [place] [address] [email or web address], Richard Escobar MD - Lab . Director Specimen Anatomical Collection Method Collection Time Receive d Time (Source) Location / / Volume Laterality 10/11/2018 11:02 10/11/2018 2:02 AM CDT PM CDT Narrative PN SOFT - 10/12/2018 9:17 AM CDT Performed at [facility] [address] [place] [address] CLIA number [id number] Pat Mishra MD LAB_1 Performing Organization Address [facility] Phon e Number PN SOFT [address] [place] [address] Hepatitis A Antibody, IgG (10/11/2018 11:02 AM CDT) athologist Signature Hepatitis A Reactive Non-Reacti PN SOFT Virus, IgG ve (Immunity) Specimen Anatomical Collection Method Collection Time Receive d Time (Source) Location / / Volume Laterality 10/11/2018 11:02 10/11/2018 AM CDT 12:13 PM CDT Narrative PN SOFT - 10/11/2018 1:01 PM CDT Performed at [address] [address] CLIA number [id number] Pat Mishra MD LAB_1 Performing Organization Address [facility] Phon e Number PN SOFT [address] [place] [address] HIV Genotype (10/11/2018 11:02 AM CDT) athologist Signature HIV Genotype See Note PN SOFT Comment: Copy Sent to Dr. ИРИНА DOUGLAS Copy Sent to Scan Doc Please see original in chart. Specimen Anatomical Collection Method Collection Time Receive d Time (Source) Location / / Volume Laterality 10/11/2018 11:02 10/11/2018 3:11 AM CDT PM CDT Narrative PN SOFT - 10/17/2018 3:50 PM CDT Performed at [address] [address] CLIA number [id number] Pat Mishra MD LAB_1 Performing Organization Address [facility] Phon e Number PN SOFT [address] [place] [address] Hemogram/Plts/Diff (10/11/2018 11:02 AM CDT) athologist Signature White Blood Cell 5.1 3.8 - 11.0 PN SOFT Count k/cmm Red Blood Cell 5.14 4.20 - PN SOFT Count 5.90 m/cmm Hemoglobin 16.1 13.4 - PN SOFT 17.5 g/dL Hematocrit 46.6 39.0 - PN SOFT 51.0 % Mean Corpuscular 90.7 80.0 - PN SOFT Volume 100.0 fL RDW 12.1 11.0 - PN SOFT 15.0 % Platelet Count 245 140 - 450 PN SOFT k/cmm Specimen Anatomical Collection Method Collection Time Receive d Time (Source) Location / / Volume Laterality 10/11/2018 11:02 10/11/2018 AM CDT 11:02 AM CDT Narrative PN SOFT - 10/11/2018 11:09 AM CDT Performed at [facility], [address] [place] [address] CLIA number [id number] Pat Mishra MD LAB_1 Performing Organization Address [facility] Phon e Number PN SOFT [address] [place] [address] [phone] (ABNORMAL) Liver Panel(Hepatic Function Panel) (10/11/2018 10:48 AM CDT) [facility] gist Method Time Signature Alk Phos 59 40 - 150 PN SOFT U/L Bilirubin Total 0.4 0.2 - 1.2 PN SOFT mg/dL Bilirubin, Direct 0.2 0.0 - 0.5 PN SOFT mg/dL Protein Total, Serum 8.8 (H) 6.4 - 8.3 PN SOFT g/dL Albumin 5.0 3.4 - 5.0 PN SOFT g/dL Aspartate 21 10 - 40 PN SOFT Aminotransferase U/L Alanine 26 9 - 55 PN SOFT Aminotransferase U/L Specimen Anatomical Collection Method Collection Time Receive d Time (Source) Location / / Volume Laterality 10/11/2018 10:48 10/11/2018 1:05 AM CDT PM CDT Narrative PN SOFT - 10/11/2018 3:15 PM CDT Performed at [facility], [address] [place] [address] CLIA number [id number] Pat Mishra MD LAB_1 Performing Organization Address [facility] Phon e Number PN SOFT [address] [place] [address] (ABNORMAL) Creatinine / GFR (10/11/2018 10:48 AM CDT) Analysis Performed At Patho logist Time Signature Creatinine 0.60 (L) 0.73 - PN SOFT Serum 1.18 mg/dL Est GFR >60 >60 PN SOFT Am mL/min/1.7 3m2 Est GFR Non-Afr >60 >60 PN SOFT Am mL/min/1.7 3m2 Comment: Normal>60, moderate decrease 30 - 59, se spencer decrease 15 - 29, renal failure <15 mL/min/1.73 m2 NOTE: ??Choose the eGFR result above braydon ropriate for the race of the patient. Specimen Anatomical Collection Method Collection Time Receive d Time (Source) Location / / Volume Laterality 10/11/2018 10:48 10/11/2018 1:05 AM CDT PM CDT Narrative PN SOFT - 10/11/2018 3:15 PM CDT Performed at [facility], [address] [place] [address] CLIA number [id number] Pat Mishra MD LAB_1 Performing Organization Address City/State/ZIP Code Phon e Number PN SOFT [address] [place] [address] documented in this encounter Visit Diagnoses Diagnosis HIV (human immunodeficiency virus infect ion) ([facility]) Asymptomatic human immunodeficiency viru s (HIV) infection status documented in this encounter Care Teams Ecological Technical Officer Relationship Specialty Start Date End Date Eamon Alves MD PCP - General 10/23/10 07[address] [place] [address] documented as of this encounter
--- OUTSIDE RECORDS SUMMARY | 2022-04-29 16:40 | XMS_ITS | Encounter Summary ---
:1985 Author Organization [facility] [facility] Address [address], [place] [address] Care Team Providers Name Role Phone Eamon Alves MD Primary Care Provider Reason for Visit Reason Comments Medication Questions Encounter Details Date Type Department Care Team Description 01/16/2019 Telephone [facility] [address] ation Questions Infectious Disease Pat Staples MD [address] [facility] [place] [phone] (Wo rk) Social History Tobacco Use Types Packs/Day Years Used Date Smoking Tobacco: Never Smokeless Tobacco: Never Alcohol Use Standard Drinks/Week Comments Yes 0 (1 standard drink = 0.6 oz pure alcoho l) Sex Assigned at Date Recorded Not on file documented as of this encounter Nursing Notes Lara Boogie RN - 01/16/2019 1:20 PM CDT Patient notified. Pat Miles MD - 01/16/2019 1:18 PM CDT This is fine, there is no interaction with his Biktarvy Yue Cruz RN - 01/16/2019 11:03 AM CDT Patient calling in stating that [facility] and he was given amoxicillin totake. He just wants to make sure that this is ok with his other medications. He has not started it yet, he can be reached at [phone], ok to LD. documented in this encounter Plan of Treatment Not on filedocumented as of this encounter Visit Diagnoses Not on filedocumented in this encounter Care Teams Graining Operator Relationship Specialty Start Date End Date Eamon Alves MD PCP - General 10/23/10 07/17/[address] [address] documented as of this encounter
--- OUTSIDE RECORDS SUMMARY | 2022-04-29 16:40 | XMS_ITS | Encounter Summary ---
:1985 Author Organization [facility] Address [address], [place] [address] Care Team Providers Name Role Phone Eamon Alves MD Primary Care Provider Encounter Details Date Type Department Care Team Description 06/27/2019 Lab Visit [facility] orvanessa Canceled (Clinic Request) [address] [place], [place] [address] Social History Tobacco Use [...] on filedocumented in this encounter Care Teams Breaker Layer Relationship Specialty Start Date End Date Eamon Alves MD PCP - General 10/23/10 07/17/19 [address] [place] [address] documented as of this encounter
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
--- OUTSIDE RECORDS SUMMARY | 2022-04-29 16:40 | XMS_ITS | Encounter Summary ---
:1985 [facility] Address [address] [address] Care Team Providers Name Role Phone Marino Rubio PA-C Primary Care Provider Reason for Visit Reason Comments New Medication Encounter Details Date Type Department Care Team Description 07/18/2019 Telephone [facility] Marino Mendes PA-C New Medication [address] [address] [place] [address] [place] [address] [phone] (Wo rk) Social History Tobacco Use Types Packs/Day Years Used Date Smoking Tobacco: Never Smokeless Tobacco: Never Alcohol Use Standard Drinks/Week Comments Yes 0 (1 standard drink = 0.6 oz pure alcoho l) Sex Assigned at Date Recorded Not on file documented as of this encounter Nursing Notes French Arnold MD - 07/18/2019 2:15 PM CST Rx sent. OVERWRAP MACHINE TENDER Soha Grace RN - 07/18/2019 1:00 PM CST Clinician Action: New Order Medication Clinician Next Step: Review associated dx/order for accuracy and sign pended orders, if appropriate,Route to [place] [facility] [place] to follow up and Patient IS expecting a call back from care team Specific Request(s): 1. Patient requesting lexapro to get to appointment with pcp Patient did book upcoming OV at first available with pcp, requesting refill to get through appointment. Had appointment with pcp for his anxiety 01/23/19 Future Appointments Date Time Provider Department Center 07/25/2019 4:00 PM Marino Rubio, CHEMO [facility] 08/07/2019 11:00 AM Pat Gutierrez MD [id number] [facility] PN P38 OVERWRAP MACHINE TENDER Cristin Cain RN - 07/18/2019 12:47 PM CST Left message on voicemail to call back to [phone]. Pt will need office visit as requested prescription has not been prescribed at [facility] in the past. OVERWRAP MACHINE TENDER Veda Minaya - 07/18/2019 11:11 AM CST Medications - New Medication What medication are you calling about (name or what do/did you take it for)? Escitalopram Oxalate - (Lexapro) - 20mg - 1 tablet daily - Anxiety, depression and panic attacks Why are you calling for this medication? Pt states he is almost out of Rx and needs a refill. Have you taken this medication or type of medication before and if so, when was it last taken? Yes: 07/18/19 (If No, please help schedule an appointment) Additional comments (related to the above concern): Pt states he [place] moved [place] and needs to get Rx refill. Pt would also like the medication, Propranolol 60 mg tablet added to med list for future Rx. - 1 tablet daily For this new medication, patient would like it filled at the pharmacy listed in Meds & Orders. (Verify the pharmacy patient would like to use for this request is highlighted in blue in Pharmacy Selection under Meds & Orders) Is it okay to leave a detailed message on your voicemail? Yes (Advise caller that the PN call back number will end with [phone] or unknown) Please route to: Triage Pool OVERWRAP MACHINE TENDER documented in this encounter Plan of Treatment Not on filedocumented as of this encounter Visit Diagnoses Not on filedocumented in this encounter Care Teams Barrel Assembly Inspector Relationship Specialty Start Date End Date Marino Rubio PA-C PCP - General Physician Dial Painter 07/18/19 [address] [place] [address] documented as of this encounter
--- OUTSIDE RECORDS SUMMARY | 2022-04-29 16:40 | XMS_ITS | Encounter Summary ---
:1985 Author Organization [facility] Address [address] [place] [address] Care Team Providers Name Role Phone Marino Rubio PA-C Primary Care Provider Reason for Visit Reason Onset Date Comments Refill 07/18/2019 Encounter Details Date Type Department Care Team Description 07/18/2019 Refill [facility] 380 Infectious Un known, Physician Refill Disease [address] [place], [place] [id number] [place] [address] [phone] Social History Tobacco Use Types Packs/Day Years [...] se documented in this encounter Care Teams Skidder Operator Relationship Specialty Start Date End Date Marino Rubio PA-C PCP - General Physician Show Design Supervisor 07/18/19 [address] [place] [address] documented as of this encounter
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
--- OUTSIDE RECORDS SUMMARY | 2022-04-29 16:40 | XMS_ITS | Encounter Summary ---
:1985 Author Organization [employer] Address [address], [place] [address] Care Team Providers Name Role Phone Eamon Alves MD Primary Care Provider Encounter Details Date Type Department Care Team Description 06/27/2019 Lab Visit [place] Aminah araya Asymptomatic HIV infection ( HRC); [address] [facility] Screen for STD (sexually tra nsmitted disease) [place], [place] [address] Social History Tobacco Use [...] Name Priority Date/Time Associated Diagnosis Comme nts CHLAMYDIA & GC, URINE Routine 06/27/2019 12:28 Screen for STD Results for this (14 YEARS AND OLDER) PM TRANSPORTATION OPERATIONS MANAGER (sexually procedu re are in transmitted disease) the res ults section. HIV-1 RNA QUANT Routine 06/27/2019 12:20 Asymptomatic HIV Resu lts for this PM TRANSPORTATION OPERATIONS MANAGER infection (HRC) procedure ar e in the results section. CBC AND DIFFERENTIAL Routine 06/27/2019 12:20 Asymptomatic HIV Results for this PANEL PM TRANSPORTATION OPERATIONS MANAGER infection (HRC) procedure ar e in the results section. TREPONEMA SCREEN Routine 06/27/2019 12:20 Screen for STD Resul ts for this PM TRANSPORTATION OPERATIONS MANAGER (sexually procedure are i n transmitted disease) the res ults section. CREATININE / GFR Routine 06/27/2019 12:20 Asymptomatic HIV Res ults for this PM TRANSPORTATION OPERATIONS MANAGER infection (HRC) procedure ar e in the results section. COMPLETE BLOOD Routine 06/27/2019 12:20 Asymptomatic HIV Resul ts for this COUNT-W/DIFF PM TRANSPORTATION OPERATIONS MANAGER infection (HRC) procedure ar e in the results section. T CELL RATIO Routine 06/27/2019 12:20 Asymptomatic HIV Results for this PM TRANSPORTATION OPERATIONS MANAGER infection (HRC) procedure ar e in the results section. ALT (SGPT) Routine 06/27/2019 12:20 Asymptomatic HIV Results for this PM TRANSPORTATION OPERATIONS MANAGER infection (HRC) procedure ar e in the results section. documented in this encounter Results Chlamydia and GC, Urine STD (06/27/2019 12:28 PM TRANSPORTATION OPERATIONS MANAGER) [facility] Method Time Signature Chlamydia Not Not 06/27/2019 [facility] Trachomatis Detected Detected 8:28 PM TRANSPORTATION OPERATIONS MANAGER CENTRAL LAB STD N. gonorrhoeae Not Not 06/27/2019 [facility] STD Detected Detected 8:28 PM TRANSPORTATION OPERATIONS MANAGER CENTRAL LAB Specimen Anatomical Collection Method Collection Time Receive d Time (Source) Location / / Volume Laterality Urine Non-blood 06/27/2019 12:28 06/27/2019 Collection / PM TRANSPORTATION OPERATIONS MANAGER 12:29 PM TRANSPORTATION OPERATIONS MANAGER Unknown Narrative [facility] - 06/27/2019 8:28 PM TRANSPORTATION OPERATIONS MANAGER Test performed by Molecular Detection Pat Mishra MD LAB_1 Performing Organization Address City/State/ZIP Code Phon e Number [facility] [address] [address] Complete Blood Count-W/Diff (06/27/2019 12:20 PM TRANSPORTATION OPERATIONS MANAGER) P athologist Signature WBC 3.6 3.5 - 10.5 06/27/2019 [place] x10(9)/L 12:30 PM TRANSPORTATION OPERATIONS MANAGER LAB RBC 4.69 4.32 - 06/27/2019 [place] 5.72 12:30 PM TRANSPORTATION OPERATIONS MANAGER LAB x10(12)/L Hemoglobin 15.5 13.5 - 06/27/2019 [place] 17.5 g/dL 12:30 PM TRANSPORTATION OPERATIONS MANAGER LAB HCT 45.8 38.8 - 06/27/2019 [place] 50.0 % 12:30 PM TRANSPORTATION OPERATIONS MANAGER LAB MCV 97.7 80.0 - 06/27/2019 [place] 100.0 fL 12:30 PM TRANSPORTATION OPERATIONS MANAGER LAB MCH 33.0 27.6 - 06/27/2019 [place] 33.3 pg 12:30 PM TRANSPORTATION OPERATIONS MANAGER LAB MCHC 33.8 31.5 - 06/27/2019 [facility] 35.2 g/dL 12:30 PM TRANSPORTATION OPERATIONS MANAGER LAB RDW 11.9 11.9 - 06/27/2019 [facility] 15.5 % 12:30 PM TRANSPORTATION OPERATIONS MANAGER LAB Platelets 283 150 - 450 06/27/2019 [facility] x10(9)/L 12:30 PM TRANSPORTATION OPERATIONS MANAGER LAB Neutrophil 1.9 1.7 - 7.0 06/27/2019 [facility] Absolute 10(9)/L 12:30 PM TRANSPORTATION OPERATIONS MANAGER LAB Lymphocyte 1.3 1.0 - 4.8 06/27/2019 [facility] Absolute 10(9)/L 12:30 PM TRANSPORTATION OPERATIONS MANAGER LAB Monocytes 0.3 0.2 - 0.9 06/27/2019 [facility] Absolute 10(9)/L 12:30 PM TRANSPORTATION OPERATIONS MANAGER LAB Eosinophil 0.0 0.0 - 0.5 06/27/2019 [facility] Absolute 10(9)/L 12:30 PM TRANSPORTATION OPERATIONS MANAGER LAB Basophil 0.0 0.0 - 0.3 06/27/2019 [facility] Absolute 10(9)/L 12:30 PM TRANSPORTATION OPERATIONS MANAGER LAB Immature Gran % 0.0 0.0 - 0.5 06/27/2019 [place] % 12:30 PM TRANSPORTATION OPERATIONS MANAGER LAB Specimen Anatomical Collection Method / Collection Time Recei meg Time (Source) Location / Volume Laterality Blood Venipuncture / 06/27/2019 12:20 9 Unknown PM TRANSPORTATION OPERATIONS MANAGER 12:20 PM TRANSPORTATION OPERATIONS MANAGER Pat Mishra MD LAB_1 Performing Organization Address City/State/[facility] Code Phon e Number [facility] [address] [place] [phone] Treponema Screen (06/27/2019 12:20 PM TRANSPORTATION OPERATIONS MANAGER) [facility] gist Method Time Signature Treponema Screen 0.061 {s_co_ratio 06/28/2019 [facility] Result } 9:34 AM TRANSPORTATION OPERATIONS MANAGER LABORATORY Treponema Screen Non Non 06/28/2019 [facility] Interpretation Reactive Reactive 9:34 AM TRANSPORTATION OPERATIONS MANAGER LABORATORY Specimen Anatomical Collection Method / Collection Time Recei meg Time (Source) Location / Volume Laterality Blood Venipuncture / 06/27/2019 12:20 9 Unknown PM TRANSPORTATION OPERATIONS MANAGER 12:20 PM TRANSPORTATION OPERATIONS MANAGER Pat Mishra MD LAB_1 Performing Organization Address City/[facility]/ZIP Code Phon e Number [facility] [address] [place] [address] (ABNORMAL) HIV-1 RNA Quant by TMA (06/27/2019 12:20 PM TRANSPORTATION OPERATIONS MANAGER) [facility] Method Time Signature HIV Interp Detected Not 07/01/2019 [facility] (A) Detected 11:38 AM CENTRAL LAB TRANSPORTATION OPERATIONS MANAGER HIV Copies <30 <30 07/01/2019 [facility] per/ml copies/mL 11:38 AM CENTRAL LAB TRANSPORTATION OPERATIONS MANAGER HIV Log <1.47 <1.47 log 07/01/2019 [facility] Copies/ml copies/mL 11:38 AM CENTRAL LAB TRANSPORTATION OPERATIONS MANAGER Specimen Anatomical Collection Method / Collection Time Recei meg Time (Source) Location / Volume Laterality Blood Venipuncture / 06/27/2019 12:20 9 Unknown PM TRANSPORTATION OPERATIONS MANAGER 12:20 PM TRANSPORTATION OPERATIONS MANAGER Narrative [facility] CENTRAL LAB - 07/01/2019 11:38 AM TRANSPORTATION OPERATIONS MANAGER Test performed by Lead Technician Mediated Amplification. Pat Mishra MD LAB_1 Performing Organization Address City/[facility] Code Phon e Number [facility] [address] [address] (ABNORMAL) T Cell Ratio (06/27/2019 12:20 PM TRANSPORTATION OPERATIONS MANAGER) athologist Signature CD3 (T Cells) 89.1 (H) 62.1 - 06/28/2019 [facility] % 85.0 % 10:25 AM [facility] CD3 (T Cells) 1,049 500-2,544 06/28/2019 [facility] Absolute /UL 10:25 AM [facility] CD3/CD4 (T 24.0 (L) 31.6 - 06/28/2019 [facility] Maben Cells) 65.7 % 10:25 AM [facility] % CD3/CD4 (T 282 (L) 337-1,687 06/28/2019 [facility] Maben Cells) /UL 10:25 AM [facility] Absolute CD3/CD8 (T 61.3 (H) 10.0 - 06/28/2019 [facility] Suppressor/Cyt 40.0 % 10:25 AM [facility] otoxic Cells) % CD3/CD8 (T 722 140 - 907 06/28/2019 [facility] Suppressor/Cyt /UL 10:25 AM TRANSPORTATION OPERATIONS MANAGER [facility] otoxic Cells) Absolute CD4/CD8 Ratio 0.4 (L) 0.8 - 3.7 06/28/2019 [facility] 10:25 AM [facility] Specimen Anatomical Collection Method / Collection Time Recei meg Time (Source) Location / Volume Laterality Blood Venipuncture / 06/27/2019 12:20 9 Unknown PM TRANSPORTATION OPERATIONS MANAGER 12:20 PM TRANSPORTATION OPERATIONS MANAGER Pat Mishra MD LAB_1 Performing Organization Address City/[facility]/ZIP Code Phon e Number [address] [address] (ABNORMAL) Creatinine (06/27/2019 12:20 PM TRANSPORTATION OPERATIONS MANAGER) Patholo gist Method Time Signature Creatinine 0.71 (L) 0.73 - 06/27/2019 [facility] 1.18 3:44 PM TRANSPORTATION OPERATIONS MANAGER CENTRAL LAB mg/dL GFR, Estimated >60 >60 06/27/2019 [facility] mL/min/1. 3:44 PM TRANSPORTATION OPERATIONS MANAGER CENTRAL LAB 73m2 GFR, Est If >60 >60 06/27/2019 [facility] mL/min/1. 3:44 PM TRANSPORTATION OPERATIONS MANAGER CENTRAL LAB [place] 73m2 Specimen Anatomical Collection Method / Collection Time Recei meg Time (Source) Location / Volume Laterality Blood Venipuncture / 06/27/2019 12:20 9 Unknown PM TRANSPORTATION OPERATIONS MANAGER 12:20 PM TRANSPORTATION OPERATIONS MANAGER Pat Mishra MD LAB_1 Performing Organization Address City/[facility]/ZIP Code Phon e Number [facility] [address] [address] ALT - Alanine Aminotransferase (06/27/2019 12:20 PM TRANSPORTATION OPERATIONS MANAGER) P athologist Signature ALT (SGPT) 33 0 - 55 U/L 06/27/2019 [facility] 3:44 PM TRANSPORTATION OPERATIONS MANAGER CENTRAL LAB Specimen Anatomical Collection Method / Collection Time Recei meg Time (Source) Location / Volume Laterality Blood Venipuncture / 06/27/2019 12:20 9 Unknown PM TRANSPORTATION OPERATIONS MANAGER 12:20 PM TRANSPORTATION OPERATIONS MANAGER Pat Mishra MD LAB_1 Performing Organization Address City/State/ZIP Code Phon e Number [facility] [address] [address] documented in this encounter Visit Diagnoses Diagnosis Asymptomatic HIV infection (HRC) Asymptomatic human immunodeficiency viru s (HIV) infection status Screen for STD (sexually transmitted dis ease) Screening examination for venereal disea se documented in this encounter Care Teams Budget Consultant Relationship Specialty Start Date End Date Eamon Alves MD PCP - General 10/23/10 07/17/[address] [address] documented as of this encounter
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
--- OUTSIDE RECORDS SUMMARY | 2022-04-29 16:40 | XMS_ITS | Encounter Summary ---
:1985 Author Organization [email or web address] Address [address], [place] [address] Care Team Providers Name Role Phone Eamon Alves MD Primary Care Provider Encounter Details Date Type Department Care Team Description 10/14/2018 Notes/Orders [facility] Marino Rubio, Insomni a, unspecified Medicine CHEMO type (Primary Dx) [address] [address] [place] [id number] [phone] Social History Tobacco Use Types Packs/Day Years Used Date Smoking Tobacco: Never Smokeless Tobacco: Never Alcohol Use Standard Drinks/Week Comments Yes 0 (1 standard drink = 0.6 oz pure alcoho l) Sex Assigned at Date Recorded Not on file documented as of this encounter Progress Notes Marino Rubio PA-C - 10/14/2018 12:58 PM CDT Patient having increased issues with insomnia, mostly related to increased anxiety with recent diagnosis of HIV as well as pain issues. Has tried Vistaril and other regimens but not working. Discussed trial of Ambien 5-10mg at night. Prescriptions faxed to pharmacy. documented in this encounter Plan of Treatment Not on filedocumented as of this encounter Visit Diagnoses Diagnosis Insomnia, unspecified type - Primary documented in this encounter Care Teams Cio Relationship Specialty Start Date End Date Eamon Alves MD PCP - General 10/23/10 07/17/[address] [place] [address] documented as of this encounter
--- OUTSIDE RECORDS SUMMARY | 2022-04-29 16:40 | XMS_ITS | Encounter Summary ---
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 Time (Source) Location / / Volume Laterality 10/11/2018 10:43 10/11/2018 AM CDT 12:05 PM CDT Pat Mishra MD LAB_1 Performing Organization Address [facility] Phon e Number PN SOFT [address] [place] [address] documented in this encounter Visit Diagnoses Diagnosis HIV (human immunodeficiency virus infect ion) (HRC) - Primary Asymptomatic human immunodeficiency viru s (HIV) infection status Concussion with loss of consciousness, s ubsequent encounter Migraine without status migrainosus, not intractable, unspecified migraine type Constipation, chronic Unspecified constipation History of depression Personal history of other mental disorde r HIV (human immunodeficiency virus infect ion) (HRC) Asymptomatic human immunodeficiency viru s (HIV) infection status documented in this encounter Care Teams Ramp Service Man Relationship Specialty Start Date End Date Eamon Alves MD PCP - General 10/23/10 07/17/[address] [address] documented as of this encounter
--- OUTSIDE RECORDS SUMMARY | 2022-04-29 16:40 | XMS_ITS | Encounter Summary ---
:1985 Author Organization [email or web address] Address [address] [place] [address] Care Team Providers Name Role Phone Eamon Alves MD Primary Care Provider Reason for Referral Consult/Transfer Care (Routine) - Closed Specialty Diagnoses / Procedures Referred By Contact Refer red To Contact Diagnoses HIV (human immunodeficiency virus infection) (HRC) Marino Rubio PA-C [address] [place] [address] Referral ID Status Reason Start Date Expiration Date Visits Requ ested Visits Authorized [id number] Closed 10/10/2018 01/09/2020 1 1 Scheduling Instructions Your provider has recommended an appoint ment with [facility]. You may call [phone] to schedule yo ur appointment. If you do not schedule an appointment within the next 1 to 3 busin ess days, we will call you to help arrange your appointment. We suggest you call [facility] health insurance company about your coverage and benefits for this appointme nt. Reason for Visit Reason Comments Follow-up, NOS Discussed final HIV labs Encounter Details Date Type Department Care Team Description 10/10/2018 Telephone [employer] Marino Rubio, Follow- up, NOS Medicine CHEMO (Discussed final HIV [address] [address] [facility] labs) [place], [place] [address] [phone] Social History Tobacco Use Types Packs/Day Years Used Date Smoking Tobacco: Never Smokeless Tobacco: Never Alcohol Use Standard Drinks/Week Comments Yes 0 (1 standard drink = 0.6 oz pure alcoho l) Sex Assigned at Date Recorded Not on file documented as of this encounter Nursing Notes Romana Quintanilla, RN - 10/10/2018 3:07 PM CDT Plate Painter - Phone Call Called to assist Pt with getting infectious disease appt, discussed urgent order and conferenced to scheduling; appt set for tomorrow at 9:30am. Fernie silva, gave him RNCC contact # to call for further resource needs/questions. Marino Rubio PA-C - 10/10/2018 2:27 PM CDT Discussed HIV results with patient and placed urgent referral for infectious disease consult. Pleasecall and help patient to set this up. documented in this encounter Plan of Treatment Scheduled Referrals Name Type Priority [facility] Diagnoses [facility] Ref[facility] Routine HIV (human immunodefic iency Ordered: 10/10/2018 Consult-Adults virus infection) (C) documented as of this encounter Visit Diagnoses Diagnosis HIV (human immunodeficiency virus infect ion) (HRC) - Primary Asymptomatic human immunodeficiency viru s (HIV) infection status documented in this encounter Care Teams Concrete Panel Installer Relationship Specialty Start Date End Date Eamon Alves MD PCP - General 10/23/10 07/17/19 [address] [place] [address] documented as of this encounter
--- OUTSIDE RECORDS SUMMARY | 2022-04-29 16:40 | XMS_ITS | Encounter Summary ---
:1985 Author Organization [facility] Address [address] [place] [address] Care Team Providers Name Role Phone Eamon Alves MD Primary Care Provider Reason for Visit Reason Onset Date Comments Refill 03/31/2019 Encounter Details Date Type Department Care Team Description 03/31/2019 Refill [facility] 380 Infectious Un known, Physician Refill Disease [address] [facility] [place], [place] [address] [place] [address] [phone] Social History Tobacco Use Types Packs/Day Years [...] se documented in this encounter Care Teams Push Button Switch Assembler Relationship Specialty Start Date End Date Eamon Alves MD PCP - General 10/23/10 07/17/[address] [place] [address] documented as of this encounter
--- OUTSIDE RECORDS SUMMARY | 2022-04-29 16:40 | XMS_ITS | Encounter Summary ---
:1985 Author Organization [facility] Address [address] [address] Care Team Providers Name Role Phone Eamon Alves MD Primary Care Provider Encounter Details Date Type Department Care Team Description 12/03/2018 Lab Visit [facility] HIV (human immunodeficiency [address] virus infection) ([facility]) [place] [address] Social History Tobacco Use Types Packs/Day Years [...] Diagnosis Comme nts HIV-1 RNA QUANT Routine 12/03/2018 10:53 HIV (human Results for this AM CDT immunodeficiency virus proce dure are in infection) ([facility]) the results section. CBC AND DIFFERENTIAL Routine 12/03/2018 10:53 HIV (human Res ults for this PANEL AM CDT immunodeficiency virus proce dure are in infection) ([facility]) the results section. CREATININE / GFR Routine 12/03/2018 10:53 HIV (human Results for this AM CDT immunodeficiency virus proce dure are in infection) ([facility]) the results section. COMPLETE BLOOD Routine 12/03/2018 10:53 HIV (human Results f or this COUNT-W/DIFF AM CDT immunodeficiency virus proce dure are in infection) ([facility]) the results section. LYMPHOCYTE SUBSETS Routine 12/03/2018 10:53 HIV (human Resul ts for this AM CDT immunodeficiency virus proce dure are in infection) ([facility]) the results section. ALT (SGPT) Routine 12/03/2018 10:53 HIV (human Results for this AM CDT immunodeficiency virus proce dure are in infection) ([facility]) the results section. documented in this encounter Results (ABNORMAL) Complete Blood Count-W/Diff (12/03/2018 10:53 AM CDT) athologist Signature WBC 4.0 3.5 - 10.5 12/03/2018 [facility] x10(9)/L 11:03 AM CDT RBC 4.56 4.32 - 12/03/2018 [facility] 5.72 11:03 AM CDT x10(12)/L Hemoglobin 14.7 13.5 - 12/03/2018 [facility] 17.5 g/dL 11:03 AM CDT HCT 43.2 38.8 - 12/03/2018 [facility] 50.0 % 11:03 AM CDT MCV 94.7 80.0 - 12/03/2018 [facility] 100.0 fL 11:03 AM CDT MCH 32.2 27.6 - 12/03/2018 [facility] 33.3 pg 11:03 AM CDT MCHC 34.0 31.5 - 12/03/2018 [facility] 35.2 g/dL 11:03 AM CDT RDW 13.2 11.9 - 12/03/2018 [facility] 15.5 % 11:03 AM CDT Platelets 228 150 - 450 12/03/2018 [facility] x10(9)/L 11:03 AM CDT Neutrophil 2.5 1.7 - 7.0 12/03/2018 [facility] Absolute 10(9)/L 11:03 AM CDT Lymphocyte 1.1 1.0 - 4.8 12/03/2018 [facility] Absolute 10(9)/L 11:03 AM CDT Monocytes 0.3 0.2 - 0.9 12/03/2018 [facility] Absolute 10(9)/L 11:03 AM CDT Eosinophil 0.0 (L) 0.1 - 0.5 12/03/2018 [facility] Absolute 10(9)/L 11:03 AM CDT Basophil 0.0 0.0 - 0.3 12/03/2018 [facility] Absolute 10(9)/L 11:03 AM CDT Specimen Anatomical Collection Method / Collection Time Recei meg Time (Source) Location / Volume Laterality Blood Venipuncture / 12/03/2018 10:53 9 Unknown AM CDT 10:53 AM CDT Pat Mishra MD LAB_1 Performing Organization Address City/[facility]/ZIP Code Phon e Number [facility] [address] [place] [address] [phone] [facility] [address] [place] [address], [facility] [phone] (ABNORMAL) HIV-1 RNA Quant by TMA (12/03/2018 10:53 AM CDT) [facility] gist Method Time Signature HIV Interp Detected Not 12/04/2018 [facility] (A) Detected 1:03 PM CDT [facility] HIV Copies <30 <30 12/04/2018 [facility] per/ml copies/mL 1:03 PM CDT [facility] HIV Log <1.47 <1.47 log 12/04/2018 [facility] Copies/ml copies/mL 1:03 PM CDT C[facility]AL [facility] Specimen Anatomical Collection Method / Collection Time Recei meg Time (Source) Location / Volume Laterality Blood Venipuncture / 12/03/2018 10:53 9 Unknown AM CDT 10:53 AM CDT Narrative [facility] - 12/04/2018 1:03 PM CDT Test performed by Assembling Motor Builder Mediated Amplification. Pat Mishra MD LAB_1 Performing Organization Address City/[facility]/ZIP Code Phon e Number [facility] [address] [address] (ABNORMAL) Lymphocytes Profile Subsets T3 T4 T8 (12/03/2018 10:53 AM CDT) P athologist Signature CD3 (T Cells) 87.2 (H) 62.1 - 12/04/2018 [facility] % 85.0 % 1:34 PM CDT HOSPITAL CD3 (T Cells) 798 500-2,544 12/04/2018 [facility] Absolute /UL 1:34 PM CDT HOSPITAL CD3/CD4 (T 17.7 (L) 31.6 - 12/04/2018 [facility] [place] Cells) 65.7 % 1:34 PM CDT HOSPITAL % CD3/CD4 (T 162 (L) 337-1,687 12/04/2018 [facility] [place] Cells) /UL 1:34 PM CDT HOSPITAL Absolute CD3/CD8 (T 65.8 (H) 10.0 - 12/04/2018 [facility] Suppressor/Cyt 40.0 % 1:34 PM CDT HOSPITAL otoxic Cells) % CD3/CD8 (T 604 140 - 907 12/04/2018 [facility] Suppressor/Cyt /UL 1:34 PM CDT HOSPITAL otoxic Cells) Absolute CD4/CD8 Ratio 0.3 (L) 0.8 - 3.7 12/04/2018 [facility] 1:34 PM CDT HOSPITAL CD19 (B Cells) 8.3 5.5 - 22.7 12/04/2018 [facility] % % 1:34 PM CDT HOSPITAL CD19 (B Cells) 76 69 - 508 12/04/2018 [facility] Absolute /UL 1:34 PM CDT HOSPITAL CD56 (Natural 1.7 (L) 1.8 - 17.3 12/04/2018 [facility] Killer Cells) % 1:34 PM CDT HOSPITAL % CD56 (Natural 16 5 - 408 12/04/2018 [facility] Killer Cells) /UL 1:34 PM CDT HOSPITAL Absolute Specimen Anatomical Collection Method / Collection Time Recei meg Time (Source) Location / Volume Laterality Blood Venipuncture / 12/03/2018 10:53 9 Unknown AM CDT 10:53 AM CDT Pat Mishra MD LAB_1 Performing Organization Address City/State/ZIP Code Phon e Number [id number] [place] [address] (ABNORMAL) Creatinine / GFR (12/03/2018 10:53 AM CDT) [employer] Method Time Signature Creatinine 0.70 (L) 0.73 - 12/03/2018 [facility] 1.18 mg/dL 4:08 PM CDT LABORATORY GFR, Estimated >60 >60 12/03/2018 [facility] mL/min/1.7 4:08 PM CDT LABORATORY 3m2 GFR, Est If >60 >60 12/03/2018 [facility] mL/min/1.7 4:08 PM CDT LABORATORY Swedish 3m2 Specimen Anatomical Collection Method / Collection Time Recei meg Time (Source) Location / Volume Laterality Blood Venipuncture / 12/03/2018 10:53 9 Unknown AM CDT 10:53 AM CDT Pat Mishra MD LAB_1 Performing Organization Address [facility]/ZIP Code Phon e Number [facility] [address] [place] [address] ALT (SGPT) (12/03/2018 10:53 AM CDT) P athologist Signature ALT (SGPT) 23 0 - 55 U/L 12/03/2018 [facility] 4:08 PM CDT LABORATORY Specimen Anatomical Collection Method / Collection Time Recei meg Time (Source) Location / Volume Laterality Blood Venipuncture / 12/03/2018 10:53 9 Unknown AM CDT 10:53 AM CDT Pat Mishra MD LAB_1 Performing Organization Address City/[facility] Phon e Number [facility] [address] [place] [address] documented in this encounter Visit Diagnoses Diagnosis HIV (human immunodeficiency virus infect ion) (HRC) Asymptomatic human immunodeficiency viru s (HIV) infection status documented in this encounter Care Teams Lathe Set Up Person Relationship Specialty Start Date End Date Eamon Alves MD PCP - General 10/23/10 07/17/19 [address] [place] [address] documented as of this encounter
--- OUTSIDE RECORDS SUMMARY | 2022-04-29 16:40 | XMS_ITS | Encounter Summary ---
:1985 Author Organization [employer] Address [address], [place] [address] Care Team Providers Name Role Phone Eamon Alves MD Primary Care Provider Reason for Visit Reason Comments APPOINTMENT REQUEST Encounter Details Date Type Department Care Team Description 05/21/2019 Telephone [facility] [address] NTMENT REQUEST Infectious Disease Pat Staples MD [address] [facility] [facility] [place] [address] [phone] (Wo rk) Social History Tobacco Use Types Packs/Day Years Used Date Smoking Tobacco: Never Smokeless Tobacco: Never Alcohol Use Standard Drinks/Week Comments Yes 0 (1 standard drink = 0.6 oz pure alcoho l) Sex Assigned at Date Recorded Not on file documented as of this encounter Nursing Notes Soheila Winn RN - 05/22/2019 3:05 PM CDT Pt informed and he will ask his other HIV provider for lab tests. He has 5 months of Biktarvy remaining at pharmacy. No acute medical concerns at this time. Scheduled in Jun. Yue Cruz RN - 05/22/2019 9:30 AM CDT LM for patient to call clinic. Pat Miles MD - 05/21/2019 5:23 PM CDT Please tell him we'll be glad to see him again. Would confirm if he is on his Biktarvy or if he willbe running out soon? Will he be getting his routine HIV labs done with his prior HIV provider on 05/24? If that is the case could likely see me around June sometime rather than having a visit twice in one months time. If he has urgent needs or is out of meds then I should see him 06/19, but if not would keep the post-hospital follow-up times currently held as is. Matilde Mane, RN - 05/21/2019 2:31 PM CDT Pt calling to update that he is moving back to [place] and wants to reestablish care with Dr. Eaton. Pt states he will be seeing his provider for the last time 05/24 and will do labs at that time. Will have records faxed. Pt states he has an appt in the [facility] on 06/19 and could see you at that time. Please advise if you want to see pt on 06/19 or later. P) [phone], Ok to [facility]. documented in this encounter Plan of Treatment Not on filedocumented as of this encounter Visit Diagnoses Not on filedocumented in this encounter Care Teams Basket Assembler Relationship Specialty Start Date End Date Eamon Alves MD PCP - General 10/23/10 07/17/19 [address] [place] [address] documented as of this encounter
--- OUTSIDE RECORDS SUMMARY | 2022-04-29 16:40 | XMS_ITS | Encounter Summary ---
:1985 Author Organization [facility] Address [address], [place] [address] Care Team Providers Name Role Phone Eamon Alves MD Primary Care Provider Reason for Visit Reason Comments Refill Encounter Details Date Type Department Care Team Description 03/27/2019 Refill [facility] [address] Pat pizarro, Refill Disease [address] [place] [address] [place] [address] [phone] (Wo rk) Social History Tobacco Use Types Packs/Day Years Used Date Smoking Tobacco: Never Smokeless Tobacco: Never Alcohol Use Standard Drinks/Week Comments Yes 0 (1 standard drink = 0.6 oz pure alcoho l) Sex Assigned at Date Recorded Not on file documented as of this encounter Nursing Notes Yue Cruz RN - 03/27/2019 2:38 PM CDT Patient meets protocol requirements for medication refill. Medication filled per nursing refill protocol. documented in this encounter Plan of Treatment Not on filedocumented as of this encounter Visit Diagnoses Diagnosis HIV disease (HRC) - Primary Human immunodeficiency virus [HIV] disea se documented in this encounter Care Teams Ignition Specialist Relationship Specialty Start Date End Date Eamon Alves MD PCP - General 10/23/10 07/17/19 [address] [place] [address] documented as of this encounter
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
--- OUTSIDE RECORDS SUMMARY | 2022-04-29 16:40 | XMS_ITS | Encounter Summary ---
:1985 Author Organization [facility] Address [address], [place] [address] Care Team Providers Name Role Phone Eamon Alves MD Primary Care Provider Reason for Visit Reason Comments Headache 2. check spots on face WART right foot first toe skin ta g right thigh Encounter Details Date Type Department Care Team Description 12/03/2018 Procedure Visit [facility] Marino Rubio, Head ache (2. check Medicine PA-Anne spots on face); WART [id number] [address] [address] [facility] [address] (right foot first toe [place], [place] skin tag righ t thigh) [phone] Social History Tobacco Use Types Packs/Day Years Used Date Smoking Tobacco: Never Smokeless Tobacco: Never Alcohol Use Standard Drinks/Week Comments Yes 0 (1 standard drink = 0.6 oz pure alcoho l) Sex Assigned at Date Recorded Not on file documented as of this encounter Last Filed Vital Signs Vital Sign Reading Time Taken Comments Blood Pressure 120/75 12/03/2018 11:05 AM CDT Pulse 88 12/03/2018 11:05 AM CDT Temperature - - Respiratory Rate 16 12/03/2018 11:05 AM CDT Oxygen Saturation - - Inhaled Oxygen Concentration - - Weight 65.8 kg (145 lb) 12/03/2018 11:05 AM CDT Height 169.5 cm (5' 6.75) 12/03/2018 11:05 AM CDT Body Mass Index 22.88 12/03/2018 11:05 AM CDT documented in this encounter Patient Instructions Patient InstructionsMarino Rubio, CHEMO - 12/03/2018 11:20 AM CDT 1). Keep wounds clean and dry 2). Continue at home wart treatments as discussed. Consider retreating if not resolving 3). Follow up with increased pain, redness, swelling or any other concerns. documented in this encounter Progress Notes Marino Rubio PA-C - 12/03/2018 11:20 AM CDT Chief Complaint Patient presents with ??? Headache 2. check spots on face ??? WART right foot first toe skin tag right thigh History of present illness: Fernie Marroquin is a 32 y.o. male who presents with the followin). Wart: Has had wart on plantar surface of right foot and on big toe. Has had treated periodicallyin the past but not resolved. 2). Moles: Has two moles on the back of his neck that he is requesting removal as well as a small mole on left cheek. These have not necessarily gotten bigger or more irritated. The moles on back of neck to rub on shirts. No history of skin cancer. 3). Headaches: Has had trigger point injections for bilateral headache, last done 11/05/2018. Had hadone about a month prior. These have been helpful at managing his chronic headaches however discussedwaiting at least another month before repeating. Review of Systems: Constitutional: No fevers, chills, fatigue CHEST: No cough or breathing difficulty HEART: No chest pain, no edema. M/S: No back pain, joint pain or swelling, no muscle pain. NEURO: Positive for headaches. No dizziness, weakness SKIN: Positive for warts and moles. No other rashes or itching. PSYCH: No issues with anxiety or depression. Past Medical History: Reviewed and updated in medical record at visit Past Surgical History: Reviewed and updated in medical record at visit Family History: Reviewed and updated in medical record at visit Medications: Reviewed and reconciled in medical record at visit. Allergies: Reviewed and updated in medical record at visit. Physical Exam: Vitals: 12/03/18 1105 BP: 120/75 Pulse: 88 Resp: 16 GEN: Alert, oriented, well nourished/hydrated in NAD EYES: PEERL, EOMI NECK: Supple. Mild tenderness over the posterior bilateral occipital aspect of scalp. CHEST: Normal effort, CTA. HEART: RRR, No audible murmur, rub or gallop. ABD: Soft, non-tender. SKIN: Warm and dry. On back of neck has two small slightly raised moles. No irregularity, color variation, or other concerning appearance. On left cheek there is a small flesh colored papular lesions again likely benign nevus. Two wart like lesions noted on the plantar surface of right foot and big toe. M/S: No joint swelling or redness. NEURO: CN 2-12 intact, non-focal exam PSYCH: Alert and oriented. Normal affect. PROCEDURE: Discussed risks and benefits of wart treatment. Informed verbal consent obtained. Warts pared and frozen with liquid nitrogen in [id number] method. Tolerated well. PROCEDURE: Risks and benefits of shave biopsy discussed. Verbal consent obtained. Area prepped with Betadine, draped in sterile fashion. Anesthesia with 1% Lidocaine with Epinephrine. Shaved with #15 blade. Hemostasis with silver nitrate. Dressed with band-aid. Tolerated well. PROCEDURE: Skin lesion on left cheek frozen with liquid nitrogen using rsiroi-[id number]-[id number] method, tolerated well. Diagnosis: Encounter Diagnoses Name Primary? Nevus Yes ??? Plantar wart Plan: 1). Keep wounds clean and dry. 2). Follow up with increased pain, swelling, redness, drainage or any concerns for infection 3). Could follow up in 1-2 months for repeat of trigger point injection for headaches. 4). Follow up with any other acute issues or concerns. documented in this encounter Plan of Treatment Not on filedocumented as of this encounter Visit Diagnoses Diagnosis Nevus - Primary Benign neoplasm of skin, site unspecifie d Plantar wart documented in this encounter Care Teams Import Export Clerk Relationship Specialty Start Date End Date Eamon Alves MD PCP - General 10/23/10 07/17/[address] [address] documented as of this encounter
--- OUTSIDE RECORDS SUMMARY | 2022-04-29 16:40 | XMS_ITS | Encounter Summary ---
:1985 Author Organization [facility] Address [address], [place] [address] Care Team Providers Name Role Phone Eamon Alves MD Primary Care Provider Encounter Details Date Type Department Care Team Description 2018 Lab Visit [facility] 3850 HIV (riya n immunodeficiency Laboratory virus infection) ([facility]) [address] [place], [place] [address] Social History Tobacco Use Types Packs/Day Years Used Date Smoking Tobacco: Never Smokeless Tobacco: Never Alcohol Use Standard Drinks/Week Comments Yes 0 (1 standard drink = 0.6 oz pure alcoho l) Sex Assigned at Date Recorded Not on file documented as of this encounter Plan of Treatment Not on filedocumented as of this encounter Procedures Procedure Name Priority Date/Time Associated Diagnosis Comme nts CBC AND DIFFERENTIAL Routine 2018 11:09 HIV (human Res ults for this PANEL AM CDT immunodeficiency virus proce dure are in infection) ([facility]) the results section. COMPLETE BLOOD Routine 2018 11:09 HIV (human Results f or this COUNT-W/DIFF AM CDT immunodeficiency virus proce dure are in infection) ([facility]) the results section. T CELL RATIO Routine 2018 11:09 HIV (human Results for this AM CDT immunodeficiency virus proce dure are in infection) ([facility]) the results section. RUBEOLA IMMUNE Routine 2018 11:09 HIV (human Results f or this STATUS, IGG AM CDT immunodeficiency virus proce dure are in infection) ([facility]) the results section. documented in this encounter Results (ABNORMAL) Complete Blood Count-W/Diff (2018 11:09 AM CDT) Analysis Performed At Patho logist Time Signature WBC 4.0 3.5 - 10.[address] [facility] x10(9)/L 11:26 AM CDT [address]50 LABORATORY RBC 4.69 4.32 - 2018 [facility] 5.72 11:26 AM CDT 3850 x10(12)/L LABORATORY Hemoglobin 15.1 13.5 - 2018 [facility] 17.5 g/dL 11:26 AM CDT 3850 LABORATORY HCT 44.6 38.8 - 2018 [facility] 50.0 % 11:26 AM CDT [address] LABORATORY MCV 95.1 80.0 - 2018 [facility] 100.0 fL 11:26 AM CDT [address] LABORATORY MCH 32.2 27.6 - 2018 [facility] 33.3 pg 11:26 AM CDT 3850 LABORATORY MCHC 33.9 31.5 - 2018 [facility] 35.2 g/dL 11:26 AM CDT 3850 LABORATORY RDW 12.9 11.9 - 2018 [facility] 15.5 % 11:26 AM CDT 3850 LABORATORY Platelets 231 150 - [address] [facility] x10(9)/L 11:26 AM CDT 3850 LABORATORY Automated NRBC 0 <=0 /[address] [facility] WBC 11:26 AM CDT 3850 LABORATORY Neutrophil 2.2 1.7 - 7.[address] [facility] Absolute 10(9)/L 11:26 AM CDT 3850 LABORATORY Lymphocyte 1.4 1.0 - 4.[address] [facility] Absolute 10(9)/L 11:26 AM CDT 3850 LABORATORY Monocytes 0.3 0.2 - 0.[address] [facility] Absolute 10(9)/L 11:26 AM CDT 3850 LABORATORY Eosinophil 0.0 (L) 0.1 - 0.[address] [facility] Absolute 10(9)/L 11:26 AM CDT 3850 LABORATORY Basophil 0.0 0.0 - 0.[address] [facility] Absolute 10(9)/L 11:26 AM CDT 3850 LABORATORY Immature Gran % 0.0 0.0 - 0.5 2018 [facility] % 11:26 AM CDT 3850 LABORATORY Specimen Anatomical Collection Method / Collection Time Recei meg Time (Source) Location / Volume Laterality Blood Venipuncture / 2018 11:09 9 Unknown AM CDT 11:09 AM CDT Pat Mishra MD LAB_1 Performing Organization Address [facility] Phon e Number [facility] [address] [place], [place] [address] [address] (ABNORMAL) Rubeola Immune Status, IgG (2018 11:09 AM CDT) athologist Signature Rubeola Units 21.2 AU/mL 12/11/2018 [facility] 11:15 AM CDT LABORATORY Comment: The magnitude of the measured r esult, above the cutoff, is not indicative of the amount of antibody present. Rubeola Interpretation Not Immune (A) Immune 12/11/2018 1 1:15 [facility] AM CDT LABORATORY Specimen Anatomical Collection Method / Collection Time Recei meg Time (Source) Location / Volume Laterality Blood Venipuncture / 2018 11:09 9 Unknown AM CDT 11:09 AM CDT Pat Mishra MD LAB_1 Performing Organization Address [facility] Phon e Number [facility] [address] [place] [address] (ABNORMAL) T Cell Ratio (2018 11:09 AM CDT) athologist Signature CD3 (T Cells) 92.4 (H) 62.1 - 12/11/2018 [facility] % 85.0 % 10:40 AM CDT HOSPITAL Comment: Test performed by Hannah luu CD3 (T Cells) 1,111 500-2,544 /UL 12/11/2018 10:40 AM [facility] Absolute CDT CD3/CD4 (T Arnot 18.9 (L) 31.6 - 65.7 % 12/11/2018 10:40 A [facility] Cells) % CDT CD3/CD4 (T Arnot 227 (L) 337-1,687 /UL 12/11/2018 10:40 A [facility] Cells) Absolute CDT CD3/CD8 (T 69.7 (H) 10.0 - 40.0 % 12/11/2018 10:40 AM [facility] Suppressor/Cytotoxic CDT Cells) % CD3/CD8 (T 838 140 - 907 /UL 12/11/2018 10:40 AM [facility] Suppressor/Cytotoxic CDT Cells) Absolute CD4/CD8 Ratio 0.3 (L) 0.8 - 3.7 12/11/2018 10:40 AM [facility] CDT Specimen Anatomical Collection Method / Collection Time Recei meg Time (Source) Location / Volume Laterality Blood Venipuncture / 2018 11:09 9 Unknown AM CDT 11:09 AM CDT Pat Mishra MD LAB_1 Performing Organization Address City/State/ZIP Code Phon e Number [id number] [place] [address] [phone] documented in this encounter Visit Diagnoses Diagnosis HIV (human immunodeficiency virus infect ion) ([facility]) Asymptomatic human immunodeficiency viru s (HIV) infection status documented in this encounter Care Teams Brush Clearer Surveying Relationship Specialty Start Date End Date Eamon Alves MD PCP - General 10/23/10 07/17/19 [address], [place] [id number] documented as of this encounter
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
--- OUTSIDE RECORDS SUMMARY | 2022-04-29 16:41 | XMS_ITS | Encounter Summary ---
:1985 Author Organization [facility] Address [address], [place] [address] Care Team Providers Name Role Phone Unavailable Primary Care Provider Unavailable Encounter Details Date Type Department Care Team Description 03/24/1992 Emergency [facility] Josh Victoria [address] [place] [address] Social History Tobacco Use Types Packs/Day Years Used Date Smoking Tobacco: Never Assessed Sex Assigned at Date Recorded Not on file documented as of this encounter Plan of Treatment Not on filedocumented as of this encounter Procedures Procedure Name Priority Date/Time Associated Comments Diagnosis XR XRAY IMPLANT COORDINATOR Routine 03/24/1992 8:51 AM Results for this CONVERSION CDT procedure are i n the results section. documented in this encounter Results XR Xray Gang Pusher Conversion (03/24/1992 8:51 AM CDT) Anatomical Region Laterality Modality Other Specimen (Source) Anatomical Location Collection Method / Collectio n Time Received Time / Laterality Volume Narrative 03/24/1992 8:51 AM CDT PA AND LATERAL CHEST: The lungs appear slightly hyperinflated, possibly secondary to asthma. No pulmonary infiltrates are noted. ??Th e heart is normal in size and contour. CONCLUSION: ??Clear lungs. ? Rafa Cortés M.D. FM:mra 03/25/92 Procedure Note Rafa Cortés 10/01/2016 PA AND LATERAL CHEST: The lungs appear slightly hyperinflated, possibly secondary to asthma. No pulmonary infiltrates are noted. The heart is normal in size and contour. CONCLUSION: Clear lungs. Rafa Cortés M.D. FM:tristian 03/25/92 Rafa Cortés RAD GD documented in this encounter Visit Diagnoses Not on filedocumented in this encounter
--- OUTSIDE RECORDS SUMMARY | 2022-04-29 16:41 | XMS_ITS | Encounter Summary ---
:1985 Author Organization [email or web address] Address [address] [place] [address] Care Team Providers Name Role Phone Eamon Alves MD Primary Care Provider Encounter Details Date Type Department Care Team Description 10/04/2018 Lab Visit [facility] Well adult exam; [address]. Screen for STD (sexually tra nsmitted disease) [place] [address] Social History Tobacco Use Types Packs/Day Years Used Date Smoking Tobacco: Never Smokeless Tobacco: Never Alcohol Use Standard Drinks/Week Comments Yes 0 (1 standard drink = 0.6 oz pure alcoho l) Sex Assigned at Date Recorded Not on file documented as of this encounter Progress Notes Britney Carrasco PA-C - 10/04/2018 11:40 AM CDT I'll let you follow up with this pt about his HIV results. Britney Mckinney documented in this encounter Plan of Treatment Not on filedocumented as of this encounter Procedures Procedure Name Priority Date/Time Associated Diagnosis Comme nts CHLAMYDIA & GC, URINE Routine 10/04/2018 11:47 Screen for STD Results for this (14 YEARS AND OLDER) AM CDT (sexually procedu re are in transmitted disease) the res ults section. HIV 1/2 CONFIRMATION Routine 10/04/2018 11:37 Res ults for this AM CDT procedure are i n the results section. HIV-1 RNA QUANT Routine 10/04/2018 11:37 Results for this AM CDT procedure are i n the results section. TREPONEMA SCREEN Routine 10/04/2018 11:37 Screen for STD Resul ts for this AM CDT (sexually procedure are i n transmitted disease) the res ults section. HIV 1/2 AG/AB 4TH GEN Routine 10/04/2018 11:37 Screen for STD Results for this AM CDT (sexually procedure are i n transmitted disease) the res ults section. HEP B SURFACE Routine 10/04/2018 11:37 Screen for STD Results for this ANTIGEN, NO REFLEX AM CDT (sexually procedure are in transmitted disease) the res ults section. LIPID PANEL AND Routine 10/04/2018 11:37 Well adult exam Resul ts for this DIRECT LDL(IF NEEDED) AM CDT proced ure are in the results section. HEPATITIS C ANTIBODY, Routine 10/04/2018 11:37 Screen for STD Results for this WITH REFLEX AM CDT (sexually procedure are i n transmitted disease) the res ults section. HEPATITIS B CORE,AB Routine 10/04/2018 11:37 Screen for STD Re sults for this AM CDT (sexually procedure are i n transmitted disease) the res ults section. GLUCOSE - FASTING > 8 Routine 10/04/2018 11:37 Well adult exam Results for this HRS FASTING AM CDT procedure are i n the results section. documented in this encounter Results Chlamydia & GC, Urine (10/04/2018 11:47 AM CDT) athologist Signature Urine Negative Negative PN SOFT Chlamydia STD Comment: Test Performed by [employer] CLIA Number [id number] Urine N. gonnorrhoeae STD Negative Negative PN S OFT Comment: Test Performed by [employer] Performed at [facility], [address] [place] [address] CLIA Number [id number] Specimen Anatomical Collection Method Collection Time Receive d Time (Source) Location / / Volume Laterality 10/04/2018 11:47 10/04/2018 3:04 AM CDT PM CDT Marino Rubio PA-C LAB_1 Performing Organization Address City/State/ZIP Code Phon e Number PN SOFT [address] [place] [address] (ABNORMAL) HIV-1 RNA Quant by TMA (10/04/2018 11:37 AM CDT) [facility] Method Time Signature HIV Detected Not PN SOFT Interpretation (A) Detected Comment: Test Performed by [employer] This result has been reported to the [facility]. CLIA Number [id number] HIV Copies per/ml 1,199 (H) <30 {Copies}/mL PN SOF T Comment: CLIA Number [id number] HIV Log Copies/ml 3.08 (H) <1.47 [lg] PN SOFT Comment: Performed at [facility], [address] [place] [address] CLIA Number [id number] Specimen Anatomical Collection Method Collection Time Receive d Time (Source) Location / / Volume Laterality 10/04/2018 11:37 10/04/2018 3:13 AM CDT PM CDT Marino Rubio PA-C LAB_1 Performing Organization Address [facility] Code Phon e Number PN SOFT [address] [place] [address] (ABNORMAL) HIV 1/2 Confirmation (10/04/2018 11:37 AM CDT) [facility] Method [place] Signature HIV 1/2 see below PN SOFT Confirmation (A) Comment: Reactive for HIV-1 antibody. Per the CDC 's recommended guideline, HIV PCR testing has been orde red. Specimen Anatomical Collection Method Collection Time Receive d Time (Source) Location / / Volume Laterality 10/04/2018 11:37 10/04/2018 3:13 AM CDT PM CDT Narrative PN SOFT - 10/04/2018 7:01 PM CDT Performed at [place] [address] [place] [address] CLIA number [id number] Marino Rbuio PA-C LAB_1 Performing Organization Address [facility] Phon e Number PN SOFT [address] [place] [address] Hepatitis C Antibody, with Reflex (10/04/2018 11:37 AM CDT) [facility] Method Time Signature Hepatitis C Nonreactive Nonreactive PN SOFT Antibody Specimen Anatomical Collection Method Collection Time Receive d Time (Source) Location / / Volume Laterality 10/04/2018 11:37 10/04/2018 3:13 AM CDT PM CDT Narrative PN SOFT - 10/04/2018 4:49 PM CDT Performed at [place] [address] [place] [address] CLIA number [id number] Marino Rubio PA-C LAB_1 Performing Organization Address [facility] Phon e Number PN SOFT [address] [place] [address] Hep B Surface Antigen, No Reflex (10/04/2018 11:37 AM CDT) [facility] Method Time Signature Hep B Surf Ag Nonreactive Nonreactive PN SOFT Specimen Anatomical Collection Method Collection Time Receive d Time (Source) Location / / Volume Laterality 10/04/2018 11:37 10/04/2018 3:15 AM CDT PM CDT Narrative PN SOFT - 10/04/2018 4:04 PM CDT Performed at [address] [address] CLIA number [id number] Marino Rubio PA-C LAB_1 Performing Organization Address [facility] Phon e Number PN SOFT [address] [place] [address] Hepatitis B Core Antibody (10/04/2018 11:37 AM CDT) [facility] Method Time Signature Hepatitis B Nonreactive PN SOFT Core Total Antibody Specimen Anatomical Collection Method Collection Time Receive d Time (Source) Location / / Volume Laterality 10/04/2018 11:37 10/04/2018 3:15 AM CDT PM CDT Narrative PN SOFT - 10/04/2018 4:04 PM CDT Performed at [place] [address] [place] [address] CLIA number [id number] Marino Rubio PA-C LAB_1 Performing Organization Address [facility] Phon e Number PN SOFT [address] [place] [address] Treponema Screen (10/04/2018 11:37 AM CDT) [facility] Method Time Signature Treponema Non Reactive Non Reactive PN SOFT Screen Specimen Anatomical Collection Method Collection Time Receive d Time (Source) Location / / Volume Laterality 10/04/2018 11:37 10/04/2018 3:14 AM CDT PM CDT Narrative PN SOFT - 10/04/2018 3:58 PM [place] [address] CLIA number [id number] Marino Rubio PA-C LAB_1 Performing Organization Address [facility] Phon e Number PN SOFT [address] [place] [address] [phone] (ABNORMAL) HIV 1/2 Ag/Ab 4th Generation (10/04/2018 11:37 AM CDT) [facility] Method Time Signature HIV-1 p24 Ag Prelim (A) Nonreactive PN SOFT and HIV-1/HIV-2 Ab Comment: Prelim reactive, confirmation to follow. This result has been reported to the [facility] Department of Health. Specimen Anatomical Collection Method Collection Time Receive d Time (Source) Location / / Volume Laterality 10/04/2018 11:37 10/04/2018 3:13 AM CDT PM CDT Narrative PN SOFT - 10/04/2018 4:48 PM CDT Performed at [facility], [address] [place] [address] CLIA number [id number] Marino Rubio PA-C LAB_1 Performing Organization Address [facility] Phon e Number PN SOFT [address] [place] [address] (ABNORMAL) Glucose (10/04/2018 11:37 AM CDT) P athologist Signature Lab Glucose 101 (H) 70 - 100 PN SOFT mg/dL Comment: The stated glucose range is for the fast ing state. Non-fasting glucose range is 70-180 mg/d L Specimen Anatomical Collection Method Collection Time Receive d Time (Source) Location / / Volume Laterality 10/04/2018 11:37 10/04/2018 2:29 AM CDT PM CDT Narrative PN SOFT - 10/04/2018 2:54 PM CDT Performed at [facility], [address] [place] [address] CLIA number [id number] Marino Rubio PA-C LAB_1 Performing Organization Address [facility] Phon e Number PN SOFT [address] [place] [address] Lipid Panel - LDLD If Trig High (10/04/2018 11:37 AM CDT) Analysis Performed At [facility] Time Signature Cholesterol 183 0 - 199 PN SOFT mg/dL Triglycerides 70 4 - 149 PN SOFT mg/dL HDL Cholesterol 42 >39 mg/dL PN SOFT Cholesterol/HDL 4.4 PN SOFT Ratio Screen LDL Calculated 127 19 - 130 PN SOFT mg/dL Non HDL Chol, Calc 141 0 - 159 PN SOFT mg/dL Length Of Fast 12.0 PN SOFT Specimen Anatomical Collection Method Collection Time Receive d Time (Source) Location / / Volume Laterality 10/04/2018 11:37 10/04/2018 2:29 AM CDT PM CDT Narrative PN SOFT - 10/04/2018 2:54 PM CDT Performed at [facility], [address] [place] [address] CLIA number [id number] Marino Rubio PA-C LAB_1 Performing Organization Address [facility] Phon e Number PN SOFT [address] [place] [address] documented in this encounter Visit Diagnoses Diagnosis Well adult exam Routine general medical examination at a health care facility Screen for STD (sexually transmitted dis ease) Screening examination for venereal disea se documented in this encounter Care Teams Medical Office Receptionist Assistant Relationship Specialty Start Date End Date Eamon Alves MD PCP - General 10/23/10 07/17/19 [address] [place] [address] documented as of this encounter
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
--- OUTSIDE RECORDS SUMMARY | 2022-04-29 16:41 | XMS_ITS | Encounter Summary ---
:1985 Author Organization [facility] Address [address], [place] [address] Care Team Providers Name Role Phone Eamon Alves MD Primary Care Provider Encounter Details Date Type Department Care Team Description 12/04/2002 PN Conversion Only MEADOW[place]UR CONVER[place] ON [place], [address] [place] [address] [place] [phone] (Wo rk) Social History Tobacco Use Types Packs/Day Years Used Date Smoking Tobacco: Never Assessed Sex Assigned at Date Recorded Not on file documented as of this encounter Plan of Treatment Not on filedocumented as of this encounter Procedures Procedure Name Priority Date/Time Associated Comments Diagnosis RPR BLOOD Routine 12/04/2002 2:48 PM Results f or this CDT procedure are i n the results section. SEXUALLY TRANSMITTED Routine 12/04/2002 2:48 PM R esults for this DISEASE PROBE CDT procedure are in the results section. documented in this encounter Results RPR Blood (12/04/2002 2:48 PM CDT) P athologist Signature RPR Non Reac Non Reac HP CONVERSION Specimen (Source) Anatomical Collection Method Collection Time Re ceived Time Location / / Volume Laterality 12/04/2002 2:48 PM CDT Omer Dillon MD LAB_1 Performing Organization Address City/State/ZIP Code Phon e Number HP CONVERSION Sexually Transmitted Disease Probe (12/04/2002 2:48 PM CDT) [facility] Method Time Signature Sexually SEE TEXT HP CONVERSION Transmitted Disease Probe Comment: Patient: JACKIE MARROQUIN Sexually Trans Disease Probe @ ?Collected: ??[id number] ??[id number] Source: Urine ? Processed: ??[id number] ??[id number] Final Report ------ ?[id number] ??[id number] No Chlamydia trachomatis detected by amp lified DNA assay No Neisseria gonorrhoeae detected by amp lified DNA assay @ = Sexually Trans Disease Probe Perform ed at ??[address] [facility] ?[place] [address] Specimen (Source) Anatomical Collection Method Collection Time Re ceived Time Location / / Volume Laterality 12/04/2002 2:48 PM CDT Omer Dillon MD LAB_1 Performing Organization Address City/State/ZIP Code Phon e Number HP CONVERSION documented in this encounter Visit Diagnoses Not on filedocumented in this encounter Care Teams Daytime Caregiver Relationship Specialty Start Date End Date Eamon Alves MD PCP - General 10/23/10 07/17/19 [address] [place] [address] documented as of this encounter
--- OUTSIDE RECORDS SUMMARY | 2022-04-29 16:41 | XMS_ITS | Encounter Summary ---
:1985 [facility] Organization [facility] Address [address] [address] Care Team Providers Name Role Phone Eamon Alves MD Primary Care Provider Encounter Details Date Type Department Care Team Description 10/21/2002 PN Conversion Only PHOTOGRAPHIC ARTIST [address] [address] Social History Tobacco Use Types Packs/Day Years Used Date Smoking Tobacco: Never Assessed Sex Assigned at Date Recorded Not on file documented as of this encounter Plan of Treatment Not on filedocumented as of this encounter Visit Diagnoses Not on filedocumented in this encounter Care Teams Enterprise Engineer Relationship Specialty Start Date End Date Eamon Alves MD PCP - General 10/23/10 07/17/19 [address] [place] [address] documented as of this encounter
--- OUTSIDE RECORDS SUMMARY | 2022-04-29 16:41 | XMS_ITS | Encounter Summary ---
:1985 [facility] Address [address] [address] Care Team Providers Name Role Phone Unavailable Primary Care Provider Unavailable Encounter Details Date Type Department Care Team Description 01/14/1996 Emergency [facility] Gonzalez Jimenes MD [address] [place] [id number] [address] [facility]. Gonzalez Jimenes MD [address] [place] [address] [place] [address] Social History Tobacco Use Types Packs/Day Years Used Date Smoking Tobacco: Never Assessed Sex Assigned at Date Recorded Not on file documented as of this encounter ED Notes Gonzalez Jimenes MD - 01/14/1996 12:01 AM CDT ED Notes signed by [employer] at 06/30/99 1200 Author: Gonzalez Jimenes MD Service: (none) Author Type: Physician Filed: Note Time: 01/14/96 0914 Status: Signed 4963 EMERGENCY MEDICINE REPORT CHIEF COMPLAINT: Fever, headache, and fatigue. HISTORY OF PRESENT ILLNESS: The patient is a healthy 10-year-old boy who was feeling well yesterday. He awoke this morning feeling tired and noted a mild, dull frontal headache. Throughout the day he has had increasing temperature and just prior to presentation to the emergency room was noted to have a temperature of 104.5 degrees. It has gone down with Tylenol to approximately 100.5 degrees. He states that overall he feels reasonably well, just a little bit tired and has some mild headache as noted. He has not had any other upper respiratory symptoms, including no ear pain, rhinorrhea, throat pain or cough. He has had no nausea, vomiting or diarrhea. He has no urinary complaints. No known exposures to anyone sick. PAST MEDICAL HISTORY: Asthma. MEDICATIONS: He uses two types of inhalers. One is albuterol and the other is an unknown type, and he also has an albuterol nebulizer at home. ALLERGIES: No known drug allergies. IMMUNIZATIONS: Up to date. PHYSICAL EXAMINATION: GENERAL: He appears very well, alert, interactive, resting quietly on the exam table in no distress. Temperature 100.5, pulse 150 and regular, respiratory rate 20, pulse oximetry on room air 99%. HEENT: The head is atraumatic. Conjunctivae and sclerae are clear. Tympanic membranes are clear bilaterally. The nasal mucosa is pink and moist with no discharge. He has no tenderness over the paranasal sinuses. Oropharynx: Clear. NECK: Supple with no lymphadenopathy. LUNGS: Entirely clear. HEART: Regular without murmur. ABDOMEN: Soft, nontender, nondistended with good bowel sounds. He has no hepatosplenomegaly. EXTREMITIES: Negative. There are no rashes. IMPRESSION: Probable viral syndrome. PLAN: Discussed options with Dad today. I felt that a conservative approach was best. Namely, watchful waiting versus workup today which would include blood, urine, etc. Dad agreed that a conservative approach would work, and he states that he will be available to watch the patient over the next day closely. They are, therefore, discharged from the emergency department. CONTINUATION OF EMERGENCY MEDICINE REPORT - Page 2 They will push fluids and generally rest. He may use Tylenol or ibuprofen as needed. They will follow up with their primary physician or return to the emergency room for any concerns, including extreme lethargy, persistent vomiting, worsening headache or if not improving in four days. Again sooner if significantly worse or for any concerns. CARLOS ENRIQUE:timothy cc: Prabhakar Pereira M.D. Signed: Gonzalez Jimenes M.D. TOR SERVICES TECHNICIAN documented in this encounter Plan of Treatment Not on filedocumented as of this encounter Visit Diagnoses Not on filedocumented in this encounter
--- OUTSIDE RECORDS SUMMARY | 2022-04-29 16:41 | XMS_ITS | Encounter Summary ---
:1985 Author Organization [employer] Address [address] [address] Care Team Providers Name Role Phone Eamon Alves MD Primary Care Provider Reason for Visit Reason Comments FYI Lab Questions Encounter Details Date Type Department Care Team Description 10/05/2018 Telephone [facility], Aldo WEBB; Lab Questions [facility] [address] [place] [address] [phone] Social History Tobacco Use Types Packs/Day Years Used Date Smoking Tobacco: Never Smokeless Tobacco: Never Alcohol Use Standard Drinks/Week Comments Yes 0 (1 standard drink = 0.6 oz pure alcoho l) Sex Assigned at Date Recorded Not on file documented as of this encounter Nursing Notes Sunshine Luo CMA - 10/08/2018 1:36 PM CDT Spoke with pt and informed him of Chris Downey note. No further questions at this time. T Britney Carrasco PA-C - 10/08/2018 12:39 PM CDT I would say he should say that he tested positive for the initial HIV test but the further test is still pending so they are aware. Britney Mckinney Delmy Laird RN - 10/08/2018 11:35 AM CDT Pt is awaiting HIV-1 RNA Quant that is in process. Pt going to the dentist tomorrow which is actually new dentist and asking if needs/should report any of this or not at this time. Noe Robles - 10/08/2018 11:13 AM CDT Test Results (Advise caller/patient can view test results in [facility], if enrolled) What test are you calling about? Labs 10/04 Primary Doctor Chiropractic: Eamon Alves MD Who ordered the test? (include first & last name) Dr. Rubio. When and where was the test done? 10/04 Neda Wagner Additional comments (related to the above concern): If a prescription is needed, patient would [...] or unknown) Please route to: Triage Pool Matidle Leon RN - 10/05/2018 5:04 PM CDT Clinician Action: Returning call from provider Clinician Next Step: Patient IS expecting a call back from care team Specific Request(s): 1. Pt states that missed call from provider today Pt last seen in clinic on 10/04/18 for physical with Lauren Rubio Fatuma Thompson - 10/05/2018 4:56 PM CDT Miscellaneous Questions & FYI's - FYI (DO NOT use for billing and coding concerns see BEST care reporting system) What is your comment or FYI? Patient states he missed a call from MIKE Chance, and would like to speak to him. Please advise. If there are questions regarding your request, is it okay to leave a detailed message on your voicemail? No (Advise caller that the PN call back number will end with [phone] or unknown) Please route to: Appropriate pool per call routing grid documented in this encounter Plan of Treatment Not on filedocumented as of this encounter Visit Diagnoses Not on filedocumented in this encounter Care Teams Supervisor Felting Relationship Specialty Start Date End Date Eamon Alves MD PCP - General 10/23/10 07/17/[address] [address] documented as of this encounter
[2022-04-29 16:51] VITALS: BP 115/78; PULSE 98; RESP 18; TEMP 36.2
== END 2022-04-29 16:52 | disposition home or self-care (01) ==
LOC: ED 16:35
PROVIDERS: Emergency Provider Family Medicine
DX: S00.81XA Abrasion of other part of head, initial encounter (principal); S09.90XA Unspecified injury of head, initial encounter; W19.XXXA Unspecified fall, initial encounter
CPT/HCPCS: 99283; 99284